=== PATIENT | female | born 1960 | race Caucasian/White ===

== ENCOUNTER → 2020-10-26 08:46 | Outpatient (CLI) | payer MEDICARE, BC, SELFPAY ==
--- NOTE | ~2020-10-26 | CT_ITS ---
EXAMINATION: CT lung screening DATE: 10/26/2020 09:36 INDICATION: Personal history of tobacco dependence. Lung cancer screening. TECHNIQUE: Computed tomography (CT) of the chest was performed without intravenous contrast. The dose -length product was 143.95 mGy-cm. Automated exposure control and iterative reconstruction technique were employed. COMPARISON: CT dated 07/28/2017 FINDINGS: No thoracic lymphadenopathy. No significant pleural or pericardial effusion. No thoracic ly mphadenopathy. There is atherosclerosis of the aorta and coronary arteries. There is a new 4 mm left lower lobe nodule, image 71. No additional pulmonary nodules are identified. No focal airspace consol idation. No pneumothorax. IMPRESSION: 1. . Lung-RADS category 3: Probably benign. Further evaluation is recommended with noncontrast low-do se chest CT in 6 months. Reviewed, dictated and finalized at location B. [employer] IMPRESSION: 1. . Lung-RADS category 3: Probably benign. Further evaluation is recommended w ith noncontrast low-dose chest CT in 6 months.
== END ==
PROVIDERS: PCP Family Medicine; Visit Provider Physician Assistant
DX: Z12.2 Encounter for screening for malignant neoplasm of respiratory organs (principal); Z87.891 Personal history of nicotine dependence
CPT/HCPCS: G0297

== ENCOUNTER → 2020-12-23 12:14 | Outpatient (CLI) | payer MEDICARE, BC, SELFPAY ==
--- NOTE | ~2020-12-23 | DEXA_ITS ---
Bone Density Report Name: eBl Gomes Age: 60 Sex: Female Ethnicity: White Date of : 1960 Indication: osteopenia; monitoring treatment; prior fracture; postmenopausal Referring Provider: JENNIFER MENDEZ Study: Bone densitometry was performed. Exam Date: December 23, 2020 Accession number: [id number] Bone Density: Region BMD T-score Z-score Classification AP Spine (L2, L3, L4) 1.018 -0.6 1.0 Normal Femoral Neck (Left) 0.623 -2.0 -0.7 Osteopenia Total Hip (Left) 0.695 -2.0 -1.0 Osteopenia Femoral Neck (Right) 0.605 -2.2 -0.8 Osteopenia Total Hip (Right) 0.738 -1.7 -0.6 Osteopenia Total Hip Mean 0.717 -1.9 -0.8 Osteopenia World Health Organization criteria for BMD impression classify patients as: Normal (T-score at or above -1.0), Osteopenia (T-score between -1.0 and -2.5), or Osteoporosis (T-score at or below -2.5). 10-year Fracture Risk: FRAX not reported because: Treated for osteoporosis Previous Exams: Region Exam Age BMD T-score BMD Change BMD Change Date g/cm2 vs Baseline vs Previous AP Spine(L2, L3, L4) 12/23/2020 60 1.018 -0.6 0.082* 0.101* 10/05/2018 58 0.917 -1.5 -0.019 -0.065* 04/21/2016 55 0.981 -0.9 0.046* 0.021 12/31/2013 53 0.961 -1.1 0.025* 0.015 12/30/2011 51 0.946 -1.2 0.011 0.011 12/18/2009 49 0.935 -1.3 Total Hip(Left) 12/23/2020 60 0.695 -2.0 -0.188* -0.090* 10/05/2018 58 0.785 -1.3 -0.098* -0.018 04/21/2016 55 0.803 -1.1 -0.081* 0.007 12/31/2013 53 0.795 -1.2 -0.088* 0.021 12/30/2011 51 0.774 -1.4 -0.110* -0.110* 12/18/2009 49 0.883 -0.5 Total Hip(Right) 12/23/2020 60 0.738 -1.7 -0.224* 0.003 10/05/2018 58 0.734 -1.7 -0.228* -0.089* 04/21/2016 55 0.823 -1.0 -0.139* -0.014 12/31/2013 53 0.837 -0.9 -0.125* 0.034* 12/30/2011 51 0.804 -1.1 -0.158* -0.158* 12/18/2009 49 0.962 0.2 *Denotes significance at 95% confidence level, LSC for AP Spine = 0.022 g/cm2, LSC for Total Hip = 0.027 g/cm2 Clinical Information Provided by Patient: Has had a low trauma fracture Smokes Is being treated for osteoporosis Has used the following medications: Boniva (i.e. ibandronate), Vitamin D Patient maximum height was 62.7 Menopause Age: 51 Does not regula
--- NOTE | ~2020-12-23 | MM_ITS ---
EXAMINATION: MM screening kyle BI w titi HISTORY: Screening TECHNIQUE: Craniocaudal and mediolateral oblique 3-D tomosynthesis images were obtained and synthetic 2-D images were generated. CAD analysis was submitted and interpreted. COMPARISON: Comparison to multiple prior studies sequentially, with oldest reviewed study dated 02/2014. BREAST PARENCHYMAL COMPOSITION: There are scattered areas of fibroglandular density. FINDINGS: There is no evidence of suspicious mass, calcification, or architectural distortion to sugg est malignancy in either breast. There has been no suspicious interval change. IMPRESSION: 1. No mammographic evidence of malignancy. 2. Recommend routine screening mammography in one year. BI-RADS Category 1: Negative Reviewed, dictated and finalized at location A. RY CELLAR HAND
== END ==
PROVIDERS: PCP Family Medicine; Visit Provider Obstetrics & Gynecology Gynecology
DX: Z12.31 Encounter for screening mammogram for malignant neoplasm of breast (principal); Z78.0 Asymptomatic menopausal state; M85.852 Other specified disorders of bone density and structure, left thigh; M85.851 Other specified disorders of bone density and structure, right thigh
CPT/HCPCS: 77063; 77067; 77080

== ENCOUNTER → 2021-04-15 09:56 | Outpatient (CLI) | payer MEDICARE, BC, SELFPAY ==
--- NOTE | ~2021-04-15 | CT_ITS ---
EXAMINATION: CT diagnostic chest wo con EXAM DATE: 04/15/2021 10:09 INDICATION: R91.1 - Solitary pulmonary nodule. TECHNIQUE: Spiral CT of the chest without contrast. Axial, coronal and sagittal images of the chest were reviewed. Coronal maximum intensity pixel images of chest reviewed. The dose-length product ( DLP) for this examination was 168.73 mGy-cm. The exposure was tailored according to patient size (au to mA exposure control), and iterative reconstruction (ASIR) was used as additional dose reduction te [place]. Comparison is made to prior examination from 10/26/2020. FINDINGS: Left lower lobe 3 mm nodule on image 73, unchanged, consistent with noncalcified granuloma . Triangular-shaped right middle lobe subsegmental atelectasis. No suspicious pulmonary nodules. Mild emphysema. There are no pleural or pericardial effusions. Tracheobronchial tree is patent. There is no mediastinal, hilar or axillary lymphadenopathy. There is no pneumothorax. Heart normal in size. There is mild coronary arterial calcification, arterial sclerosis. Upper abdomen is unremark able. There is mild thoracic spondylosis without osteoblastic or osteolytic lesions identified. IMPRESSION: 1. Postinfectious residua. Return to annual LDCT screening in one year. 2. Mild emphysema. Reviewed, dictated and finalized at location A.
== END ==
PROVIDERS: PCP Family Medicine; Visit Provider Physician Assistant
DX: R91.1 Solitary pulmonary nodule (principal); J43.9 Emphysema, unspecified
CPT/HCPCS: 71250

== ENCOUNTER 2022-03-10 09:56 | Outpatient (CLI) | payer MEDICARE, BC, SELFPAY ==
--- NOTE | 2022-03-10 11:00 | NEURO_ITS ---
Impression: # Complains of increasing numbness in hands and feet. # Right Carpal Tunnel Syndrome. # Bilateral ulnar neuropathy across the elbows, left more than right. # Needle/EMG neurogenic. # Underlying axonal neuropathy. Nerve Conduction Studies Anti Sensory Summary Table Stim Site NR Peak (ms) P-T Amp (?V) Site1 Site2 Delta-P (ms) Dist (cm) Ian (m/s) Left Median Anti Sensory (2-3nd Digit) Wrist 3.4 22.1 Wrist 2-3nd Digit 3.4 14.0 41 Wrist 3.4 51.7 Wrist 2-3nd Digit 3.4 14.0 41 Right Median Anti Sensory (2-3nd Digit) Wrist 3.8 28.5 Wrist 2-3nd Digit 3.8 14.0 37 Wrist 4.0 37.9 Wrist 2-3nd Digit 3.8 14.0 37 Left Radial Anti Sensory (Base 1st Digit) Wrist 2.3 12.5 Wrist Base 1st Digit 2.3 0.0 Right Radial Anti Sensory (Base 1st Digit) Wrist 2.3 17.7 Wrist Base 1st Digit 2.3 0.0 Left Sup Fibular Anti Sensory (Ant Lat Mall) 14 cm 3.6 10.5 14 cm Ant Lat Mall 3.6 16.0 44 Right Sup Fibular Anti Sensory (Ant Lat Mall) 14 cm 4.3 13.7 14 cm Ant Lat Mall 4.3 16.0 37 Left Sural Anti Sensory (Lat Mall) Calf 4.1 12.2 Calf Lat Mall 4.1 16.0 39 Right Sural Anti Sensory (Lat Mall) Calf 4.9 5.3 Calf Lat Mall 4.9 16.0 33 Left Ulnar Anti Sensory (5th Digit) Wrist 2.6 13.2 Wrist 5th Digit 2.6 14.0 54 Right Ulnar Anti Sensory (5th Digit) Wrist 3.3 14.4 Wrist 5th Digit 3.3 14.0 42 Motor Summary Table Stim Site NR Onset (ms) O-P Amp (mV) Site1 Site2 Delta-0 (ms) Dist (cm) Ian (m/s) Left Median Motor (Abd Poll Brev) Wrist 4.1 4.1 Elbow Wrist 5.2 28.0 54 Elbow 9.3 4.9 Right Median Motor (Abd Poll Brev) Wrist 4.5 3.0 Elbow Wrist 5.5 25.0 45 Elbow 10.0 1.2 Left Peroneal Motor (Vastus Med) Ankle 5.2 0.4 Popit Ankle 11.9 36.0 30 Popit 17.1 0.3 Right Peroneal Motor (Vastus Med) Ankle 5.9 0.4 Popit Ankle 12.1 33.0 27 Popit 18.0 0.4 Left Tibial Motor (Abd Vyas Brev) Ankle 5.7 1.3 Knee Ankle 9.7 37.0 38 Knee 15.4 2.1 Right Tibial Motor (Abd Vyas Brev) Ankle 6.0 1.7 Knee Ankle 10.0 40.0 40 Knee 16.0 3.4 Left Ulnar Motor (Abd Dig Minimi) Wrist 3.4 2.7 A Elbow Wrist 7.1 28.0 39 A Elbow 10.5 1.6 B Elbow Wrist 4.9 23.0 47 B Elbow 8.3 1.9 Right Ulnar Motor (Abd Dig Minimi) Wrist 3.1 4.1 A Elbow Wrist 8.5 28.0 33 A Elbow 11.6 3.0 B Elbow Wrist 4.5 20.0 44 B Elbow 7.6 2.9 F Wave Studies NR F-Lat (ms) L-R F-Lat (ms) Left Median (Mrkrs) (Abd Poll Brev) 30.70 1.27 Right Median (Mrkrs) (Abd Poll Brev) 29.44 1.27 Left Peroneal (Mrkrs) (EDB) 60.00 1.05 Right Peroneal (Mrkrs) (EDB) 61.05 1.05 Left Tibial (Mrkrs) (Abd Hallucis) 61.80 0.82 Right Tibial (Mrkrs) (Abd Hallucis) 62.62 0.82 Left Ulnar (Mrkrs) (Abd Dig Min) 31.29 1.70 Right Ulnar (Mrkrs) (Abd Dig Min) 29.59 1.70 EMG Side Muscle Nerve Root Ins Act Fibs Amp Dur Recrt Comment Right 1stDorInt Ulnar C8-T1 Nml Nml Nml >12ms Reduced Right Ext Indicis Radial (Post Int) C7-8 Nml Nml Nml >12ms Reduced Right Ext Digitorum Radial (Post Int) C7-8 Nml Nml Nml >12ms Reduced Right BrachioRad Radial C5-6 Nml Nml Nml Nml Nml Right PronatorTeres Median C6-7 Nml Nml Nml Nml Nml
== END 2022-03-10 09:57 | disposition home or self-care (01) ==
LOC: ANHNEURO 09:59
PROVIDERS: PCP Family Medicine; Visit Provider Physician Assistant
DX: G62.9 Polyneuropathy, unspecified (principal); G56.01 Carpal tunnel syndrome, right upper limb; G56.23 Lesion of ulnar nerve, bilateral upper limbs
CPT/HCPCS: 95886; 95913

== ENCOUNTER → 2022-03-18 10:06 | Outpatient (CLI) | payer MEDICARE, BC, SELFPAY ==
--- NOTE | ~2022-03-18 | MM_ITS ---
EXAMINATION: MM screening kyle BI w titi HISTORY: Screening mammogram TECHNIQUE: Craniocaudal and mediolateral oblique 3-D tomosynthesis images were obtained and synthetic 2-D images were generated. CAD analysis was submitted and interpreted. COMPARISON: 12/23/2020, 05/14/2019, 04/21/2018 bilateral screening mammogram examinations BREAST PARENCHYMAL COMPOSITION: The breasts are almost entirely fatty. FINDINGS: There is no evidence of suspicious mass, calcification, or architectural distortion to sugg est malignancy in either breast. There has been no suspicious interval change. IMPRESSION: 1. No mammographic evidence of malignancy. 2. Recommend routine screening mammography in one year. BI-RADS Category 1: Negative Reviewed, dictated and finalized at location A.
== END ==
PROVIDERS: PCP Obstetrics & Gynecology Gynecology; Visit Provider Obstetrics & Gynecology Gynecology
DX: Z12.31 Encounter for screening mammogram for malignant neoplasm of breast (principal)
CPT/HCPCS: 77063; 77067

== ENCOUNTER → 2022-04-22 10:39 | Outpatient (CLI) | payer MEDICARE, BC, SELFPAY ==
--- NOTE | ~2022-04-22 | XR_ITS ---
EXAMINATION: XR forearm RT 2V, XR wrist RT 2V DATE: 04/22/2022 10:56 INDICATION: Right wrist and posterior forearm pain post fall TECHNIQUE: 1. AP an lateral views of the right forearm were obtained. 2. AP and lateral views of the right wrist were obtained. COMPARISON: none FINDINGS: Diffuse osteopenia. Mild impaction of a transverse metaphyseal fracture of the distal right radius wh ich remains in essentially anatomic alignment. No evident extension to involve the articular surfaces . No other fractures identified. Mild osteoarthritis at the distal radioulnar joint. . Remaining join t spaces appear relatively preserved. No right elbow joint effusion. Small these findings at the late ral epicondyle of the distal right humerus. Mild soft tissue swelling about the wrist. IMPRESSION: 1. Mild impaction of a nondisplaced likely extra articular fracture distal right radial metaphysis wh ich remains in near-anatomic alignment. Reviewed, dictated and finalized at location B. IMPRESSION: 1. Mild impaction of a nondisplaced likely extra articular fracture distal righ t radial metaphysis which remains in near-anatomic alignment.
== END ==
PROVIDERS: PCP Physician Assistant; Visit Provider Physician Assistant
DX: S59.201A Unspecified physeal fracture of lower end of radius, right arm, initial encounter for closed fracture (principal)
CPT/HCPCS: 73090; 73100

== ENCOUNTER → 2022-05-17 10:17 | Outpatient (CLI) | payer MEDICARE, BC, SELFPAY ==
--- NOTE | ~2022-05-17 | XR_ITS ---
EXAMINATION: XR forearm RT 2V INDICATION: Right wrist fracture follow-up TECHNIQUE: Two views of the right forearm are obtained COMPARISON: 04/22/2022 FINDINGS: Again seen is a transverse fracture of the distal radius. Alignment is anatomic. There is i ncreased calcified callus at the fracture site. Alignment at the wrist and elbow is normal. No additi onal fracture is identified. The soft tissues are unremarkable. IMPRESSION: 1. Transverse fracture of the distal radius with routine healing. Reviewed, dictated and finalized at location A.
== END ==
PROVIDERS: PCP Family Medicine; Visit Provider Physician Assistant
DX: S52.501D Unspecified fracture of the lower end of right radius, subsequent encounter for closed fracture with routine healing (principal); X58.XXXD Exposure to other specified factors, subsequent encounter
CPT/HCPCS: 73090

== ENCOUNTER → 2023-06-06 10:29 | Outpatient (CLI) | payer MEDICARE, BC, SELFPAY ==
--- NOTE | ~2023-06-06 | MM_ITS ---
EXAMINATION: MM screening kyle BI w titi HISTORY: Screening mammogram TECHNIQUE: Craniocaudal and mediolateral oblique 3-D tomosynthesis images were obtained and synthetic 2-D images were generated. CAD analysis was submitted and interpreted. COMPARISON: March 18, 2022, December 23, 2020, May 14, 2019 lateral screening mammogram examinations BREAST PARENCHYMAL COMPOSITION: The breasts are almost entirely fatty. FINDINGS: There is no evidence of suspicious mass, calcification, or architectural distortion to sugg est malignancy in either breast. There has been no suspicious interval change. IMPRESSION: 1. No mammographic evidence of malignancy. 2. Recommend routine screening mammography in one year. BI-RADS Category 1: Negative Reviewed, dictated and finalized at location A.
== END ==
PROVIDERS: PCP Obstetrics & Gynecology Gynecology; Visit Provider Obstetrics & Gynecology Gynecology
DX: Z12.31 Encounter for screening mammogram for malignant neoplasm of breast (principal)
CPT/HCPCS: 77063; 77067

== ENCOUNTER → 2023-06-06 10:32 | Outpatient (CLI) | payer MEDICARE, BC, SELFPAY ==
--- NOTE | ~2023-06-06 | CT_ITS ---
CT Scan of the Chest without Contrast: Clinical Indication: Lung cancer screening, personal history of nicotine dependence Technique: Contiguous sections were acquired throughout the chest without intravenous contrast. Dose reduction technique was used on this scan by utilizing automated exposure control and iterative recon struction technique. The dose-length product (DLP) was 96.31 mGy-cm. COMPARISON: 04/15/2021, 10/26/2020 Findings: There is no evidence of any significant mediastinal, hilar or axillary lymphadenopathy. Atherosclerot ic calcifications of the aorta and coronary arteries are noted. There is no evidence of pleural or pericardial effusion. The lungs are clear. No pulmonary nodules or infiltrates are noted. Images through the upper abdomen reveal no abnormalities. Impression: Lung RADS 1: Negative. 12 month follow-up screening CT advised. Reviewed, dictated and finalized at [facility]. Impression: Lung RADS 1: Negative. 12 month follow-up screening CT advised.
== END ==
PROVIDERS: PCP Family Medicine; Visit Provider Emergency Medicine
DX: Z12.2 Encounter for screening for malignant neoplasm of respiratory organs (principal); Z87.891 Personal history of nicotine dependence
CPT/HCPCS: 71271

== ENCOUNTER 2025-02-18 11:16 | Outpatient (CLI) | payer MEDICARE, BC, SELFPAY ==
[2025-02-18 19:35] LABS: Alanine Aminotransferase 15 U/L (6-35); Albumin Level 4.2 g/dL (3.5-5.1); Alkaline Phosphatase 94 U/L (38-126); Anion Gap 8 mmol/L (4-12); Aspartate Amino Transferase 24 U/L (14-36); Bilirubin,Total 0.1 mg/dL (0.2-1.3); Blood Urea Nitrogen 13 mg/dL (7-17); Calcium 8.6 mg/dL (8.4-10.2); Carbon Dioxide 25 mmol/L (22-30); Chloride 101 mmol/L (98-107); Cholesterol 117 mg/dL (0-200); Estimated Glomerular Filt Rate > 60; Glucose 89 mg/dL (65-110); HDL Direct 41 mg/dL; Sodium 134 mmol/L (137-145); Triglycerides 122 mg/dL (<150)
[2025-02-18 19:47] LABS: LDL Cholesterol Direct 54 mg/dL
[2025-02-18 20:09] LABS: Basophils Absolute Auto 0.1 K/mm3 (0.0-0.1); Basophils Percent Auto 0.7 % (0.2-1.2); Eosinophils Absolute Auto 0.1 K/mm3 (0-0.3); Eosinophils Percent Auto 1.8 % (0-4.4); Hematocrit 28.3 % (37.0-47.0); Hemoglobin 8.4 g/dL (12.0-15.0); Immature Granulocyte Absolute 0.03 K/mm3 (0.00-0.031); Immature Granulocyte Percent A 0.4 % (0-0.5); Lymphocytes Absolute Auto 1.29 K/mm3 (0.9-3.2); Lymphocytes Percent Auto 18.9 % (18.3-44.2); Mean Corpuscular HGB Conc 29.7 g/dl (32-36); Mean Corpuscular Hemoglobin 27.5 pg (26-34); Mean Corpuscular Volume 92.5 fl (80-100); Mean Platelet Volume 10.2 fl (7.4-10.4); Monocytes Absolute Auto 0.5 K/mm3 (0.1-0.6); Monocytes Percent Auto 7.3 % (2.6-8.5); Neutrophils Absolute Auto 4.8 K/mm3 (1.3-6.7); Neutrophils Percent Auto 70.9 % (45.5-73.1); Platelet Count Result 264 k/mm3 (150-375); Red Blood Count 3.06 M/mm3 (4.2-5.4); Red Cell Distribution Width 14.6 % (11.5-14.5); White Blood Count 6.8 K/mm3 (4.5-10.0)
[2025-02-18 20:28] LABS: Hypochromasia 1+; Ovalocytes 1+; Platelet Estimate Adequate (Adequate); Schistocytes None Seen
[2025-02-18 20:59] LABS: Ferritin 6.58 ng/mL (11.1-264)
[2025-02-18 21:07] LABS: Hemoglobin A1C 5.9 % (<5.7)
== END 2025-02-18 11:17 | disposition home or self-care (01) ==
LOC: ANHGOSHLAB 11:17
PROVIDERS: PCP Family Medicine; Visit Provider Family Medicine
DX: D64.9 Anemia, unspecified (principal); E11.42 Type 2 diabetes mellitus with diabetic polyneuropathy; E53.8 Deficiency of other specified B group vitamins; E55.9 Vitamin D deficiency, unspecified; J42 Unspecified chronic bronchitis
CPT/HCPCS: 36415; 80053; 80061; 82306; 82607; 82728; 83036; 85025

== ENCOUNTER → 2025-03-27 02:24 | Day surgery (SDC) | payer MEDICARE, BC, SELFPAY ==
[2025-03-19 13:46] VITALS: BMI 28.4
--- NOTE | 2025-03-19 14:06 | SUR.PREOP ---
Spoke with patient in regards to her Eliquis. She verbalized understanding that her last dose will be 03/24/25 and the endoscopist will inform her when to resume after procedure is done.
--- NOTE | 2025-03-26 14:32 | WPDANESEPPF ---
Anes - Initial Pre Proc Eval Procedure: Operation Date: 03/27/25 11:00 Proposed Procedures p Colonoscopy - Ramon Horne MD Date/Time: 03/26/25 14:32 Surgeon: Ramon Horne MD Pre Op Diagnosis: Iron deficiency anemia, unspecified Patient Data Age: 64 Gender: F Height: 1.57 m Weight: 70.5 kg Allergies Allergy/AdvReac Type Severity Reaction Status Date / Time amoxicillin Allergy Unknown Unknown Verified 03/27/25 09:46 Home Medications ?Medication ?Instructions ?Recorded ?Confirmed ?Type fexofenadine 180 mg tablet 180 mg PO DAILY 02/12/20 03/27/25 History (Ling Allergy) albuterol sulfate 90 mcg/actuation 2 inh inhalation Q6H PRN shortness 12/14/23 03/19/25 Rx breath activated powder inhaler of breath or wheezing #1 ea mecobalamin (vitamin B12) 1,000 1,000 mcg PO DAILY #90 tabs 12/28/23 03/27/25 Rx mcg chewable tablet clotrimazole-betamethasone 1 1 applic topical PRN rash 06/12/24 02/18/25 History %-0.05 % topical cream lisinopril 20 1 tablet PO DAILY 06/12/24 03/27/25 History mg-hydrochlorothiazide 12.5 mg tablet ursodiol 300 mg capsule mg PO 06/12/24 02/18/25 History blood sugar diagnostic (OneTouch #50 ea 08/01/24 03/19/25 Rx Verio test strips) blood-glucose meter (OneTouch #1 ea 08/01/24 03/19/25 Rx Verio Flex Meter) lancets 33 gauge (OneTouch Delica #100 ea 08/01/24 03/19/25 Rx Plus Lancet) levothyroxine 50 mcg tablet See Rx Instructions .Route 09/13/24 03/27/25 Rx .COMPLEX #90 tabs simvastatin 20 mg tablet See Rx Instructions .Route 11/06/24 03/27/25 Rx .COMPLEX #90 tabs Farxiga 10 mg tablet 10 mg PO QAM #90 tabs 11/07/24 03/27/25 Rx (dapagliflozin propanediol) metoprolol succinate 100 mg 100 mg PO DAILY #90 tabs 12/09/24 03/27/25 Rx tablet,extended release 24 hr apixaban 5 mg tablet (Eliquis) See Rx Instructions .Route 12/12/24 03/27/25 Rx .COMPLEX #180 tabs sertraline 100 mg tablet 100 mg PO DAILY #90 tabs 01/13/25 03/27/25 Rx sitagliptin phosphate 50 mg tablet 50 mg PO DAILY #90 tabs 02/05/25 03/27/25 Rx (Januvia) ferrous sulfate 325 mg (65 mg 325 mg PO DAILY #90 tabs 02/19/25 03/27/25 Rx iron) tablet metformin 1,000 mg tablet 1,000 mg PO BIDWMEAL #180 tabs 03/07/25 03/27/25 Rx trazodone 50 mg tablet See Rx Instructions .Route 03/14/25 03/27/25 Rx .COMPLEX #180 tabs Patient hx anesthesia problems: none Family hx anesthesia problems: none Results Review: All pre-operative results and documents have been reviewed as part of the pre-operative evaluation. [facility] Past Medical History Medical History (Updated 03/26/25 @ 14:32 by Bipin Jimenez DO) Atrial fibrillation History of proteinuria syndrome associated with diabetes. doing well. Syncope considered vasovagal. Pelvic stress fracture Proteinuria Fractured pelvis Broken hip Right radial fracture Peripheral neuropathy Depression Liver disease Back pain Primary biliary cholangitis Chronic obstructive pulmonary disease, unspecified ct 5.20.21 mild emphysema Degeneration of lumbar or lumbosacral intervertebral disc Essential (primary) hypertension Hypothyroidism, unspecified Mixed hyperlipidemia Trigger finger of left thumb Type 2 diabetes mellitus with hyperglycemia Surgical History Surgical History H/O oral surgery H/O shoulder surgery bilateral Total knee replacement status 2009, 2013, bilateral Family History Family History Mother Diabetes mellitus Hypertension Family history of chronic obstructive pulmonary disease Sibling Family history of malignant neoplasm of breast Father Family history of sudden Social History Social History Smoking packs per day: 1 Smoking cigarettes per day: 20.0 Years smoked: 30 Smoking pack-years: 30.00 Smoking status: Current every day smoker Tobacco type: cigarettes Second hand tobacco smoke exposure: Yes Alcohol intake: never Substance use: never Substance use type: does not use Do You Feel Safe in your Home?: Yes Lack of Transportation: No Lack of Food: Never True Current Housing: I Have Housing Concerned About Future Housing: No Difficulty Paying Gas/Electric Bills: No Difficulty Paying for Meds: No Currently Unemployed: No Education: Decline to Answer Difficulty w/ Childcare or Family Care: No Living arrangements: alone Anes - Eval Final PreProcedure Day of Procedure 03/26/25 14:32 Patient weight: overweight Heart: regular rate and rhythm Lungs: clear to auscultation Airway: Mallampati scale class II Neurological: alert and oriented Last oral intake: >/= 8 hours ASA classification: III Emergent: no Anesthetic plan: proceed Anesthesia type and monitoring: general GIVS and standard monitoring Results Review: All pre-operative results and documents have been reviewed as part of the pre-operative evaluation. Informed Consent: The patient's anesthetic plan and its attendant risks and benefits were discussed with the patient/family/POA. Questions were solicited and answers provided to the satisfaction of the patient/family/POA.
[2025-03-27] VITALS (25 sets, daily range): BP systolic 71–158; BP diastolic 44–103; PULSE 78–128; RESP 18–37; TEMP 36.3; O2SAT 94–100; BMI 28.3
--- OUTSIDE RECORDS SUMMARY | 2025-03-27 02:29 | XMS_ITS | Clinical Summary ---
Author Organization [facility] Address [address] [place] [id number] Phone Care Team Providers Care Brush Stainer Name Role Phone Unavailable Primary Care Provider Unavailabl e Social History Tobacco Use Types Packs/Day Years Used Date Smoking Tobacco: Never Assessed Comments Unknown Sex and Gender Information Value Date Recorded Sex Assigned at Not on file Legal Sex Female 1:39 PM MDT Gender Identity Not on file Sexual Orientation Not on file Plan of Treatment Health Maintenance Due Date Last Done Comments Pneumococcal PPSV23/PCV13 65 + Years / Low and Medium Risk (1 of 4 - PCV) 2009 Influenza Vaccine (Season Ended) 2025 Insurance MEDICARE [facility]
--- OUTSIDE RECORDS SUMMARY | 2025-03-27 02:29 | XMS_ITS | Clinical Summary ---
Author Organization [facility] Address [address] [place] [address] Care Team Providers Care Garment Fitter Name Role Phone Nicolasa Jiang MD Primary Care Provider [phone] Source Comments [facility],non-owned Affiliates and Associated Physician Practices is amultiple site organization consisting of ambulatory clinics and hospital sitesin [place], [place], [place] and [place]. This disclosure is being madepursuant to the Care Everywhere program and may not contain all information available regarding this patient. Last updated 18.[facility] Allergies No known active allergies Medications * Be aware that medications may not be up to date on this document. Alwaysverify current medications with the patient. levothyroxine (SYNTHROID) 50 MCG tablet Take 1 (one) tablet by mouth daily before breakfast 04/17/20 17 Active fexofenadine (TYSON) 180 MG tablet Take 1 (one) tablet by mouth DAILY 04/18/20 17 Active B-D UF III MINI PEN NEEDLES 31G X 5 MM needleIndicatio ns:Primary biliary cholangitis (HCC) USE ONCE A DAY 3 05/01/20 18 Active albuterol HFA (Proventil; Ventolin; Proair) 108 (90 Base) MCG/ACT inhalerIndicati ons:Primary biliary cholangitis (HCC) Inhale 2 (two) puffs by mouth every 6 hours as needed Active ibandronate (BONIVA) 150 MG tablet TK 1 T PO 1 TIME Q MONTH 3 09/18/20 19 Active apixaban (ELIQUIS) 5 MG tablet Take 1 (one) tablet by mouth 2 times daily 09/13/20 21 Active simvastatin (ZOCOR) 40 MG tablet Take 1 (one) tablet by mouth once daily 09/14/20 21 Active sertraline (Zoloft) 100 MG tablet Take 1 (one) tablet by mouth at bedtime Active traZODone (Desyrel) 100 MG tablet Take 1 (one) tablet by mouth at bedtime Active spironolactone (Aldactone) 25 MG tablet Take 25 mg by mouth once daily Active HYDROcodone-avila taminophen (Jewett) 5-325 MG tablet Take 1 (one) tablet by mouth every 12 hours as needed for Pain 12 tablet 08/25/20 22 Active amLODIPine (Norvasc) 5 MG tablet Take 1 (one) tablet by mouth once daily Hold if systolic blood pressure (top number) is less than 120 mm Hg 30 tablet 08/25/20 22 Active Basaglar KwikPen (Basaglar) pen Inject 10 (ten) Units subcutaneously at bedtime 15 mL 08/25/20 22 Active Additional Information Patient not taking.Reported on 07/24/2023 Insulin Aspart, w/Niacinamide, (Fiasp PenFill) 100 UNIT/ML SOCT Inject 5 Units subcutaneously 3 times daily before meals HOLD IF BS is below 110 and notify your doctor 15 mL 08/25/20 22 Active magnesium oxide (Mag-Ox) 400 MG tablet Take 0.5 (one-half) tablet by mouth once daily 15 tablet 08/25/20 22 Active metFORMIN (Glucophage) 1000 MG tablet Take 0.5 (one-half) tablet by mouth 2 times daily with morning and evening meal 30 tablet 08/25/20 22 Active Additional Information Patient taking differently: 1,000 mgOral 2 TIMES DAILY WITH MEALS, Reported on 07/24/2023 metoprolol tartrate IR (Lopressor) 50 MG tablet Take 1 (one) tablet by mouth 2 times daily 60 tablet 08/25/20 22 Active ursodiol (Actigall) 300 MG capsule TAKE 2 CAPSULES BY MOUTH IN THE MORNING AND 1 CAPSULE IN THE EVENING 90 capsule 11 03/27/20 24 Active Active Problems Problem Noted Date Diagnosed Date NAFLD (nonalcoholic fatty liver disease) 023 Hepatic fibrosis, stage 3 07/24/2023 Hip fx, left, closed, initial encounter 08/17/20 22 Essential hypertension, malignant 09/13/2021 Mixed hyperlipidemia 09/13/2021 Paroxysmal atrial fibrillation 09/13/2021 Controlled type 2 diabetes m ellitus without complication, with long-term current use of insulin 10/15/2019 Primary biliary cholangitis 10/04/2017 Overview (07/25/2023): 09/29/17 Fibroscan CAP 285, LSM 9.3 kPa 10/15/19 Fibroscan CAP 257, LSM 8.2 kPa 12/01/20 Fibroscan CAP 321, LSM 19.1 kPa 07/24/23 Fibroscan CAP 269, LSM 13.6 kPa Encounters Date Type Department Care Team Description 02/06/2025 Orders Only [facility] [address] [place] [address] Ben Cuevas RN Primary biliary cholangitis from Last 3 Months Immunizations Immunization Administration Dates Next Due [employer] primary monoval ent 12+ yr 0.3mL Purple cap 02/11/2021,01/22/2021 INFLUENZA VACCINE, QUADR. (F LUZONE; FLULAVAL; FLUARIX; AFLURIA QUADRIVALENT; 6MO+), 0.5 ML (IIV4) 08/19/2022,09/18/2019 Family History Medical History Relation Name Comments None Known Father Status: d Heart Disease Mother Status: Alive Cancer Sister 1 breast; Status: Alive None Known Sister 2 Status: Alive Relation Name Status Comments Father Mother Sister 1 Sister 2 Social History Tobacco Use Types Packs/Day Years Used Date Smoking Tobacco: Every Day Cigarettes 0.5 40 Smokeless Tobacco: Never Tobacco Cessation:Ready to Q uit: No; Counseling Given: Yes Alcohol Use Standard Drinks/Week Comments Not Currently 0 (1 standard drink = 0.6 oz pur e alcohol) Hunger Vital Sign Answer Date Recorded Within the past 12 months, y ou worried that your food would run out before you got the money to buy more. Never true 08/22/20 22 Within the past 12 months, t he food you bought just didn't last and you didn't have money to get more. Never true 08/22/2022 Comments Unknown Sex and Gender Information Value Date Recorded Sex Assigned at Not on file Legal Sex Female 5:20 PM RATE ENGINEER Gender Identity Not on file Sexual Orientation Not on file Last Filed Vital Signs Vital Sign Reading Time Taken Comments Blood Pressure 103/87 07/24/2023 8:11 AM CDT Pulse 65 07/24/2023 8:11 AM CDT Temperature 36.3 C (97.4 F) 07/24/2023 8:11 AM CDT Respiratory Rate 18 08/25/2022 11:03 AM CDT Oxygen Saturation 100% 07/24/2023 8:11 AM CDT Inhaled Oxygen Concentration - - Weight 67.7 kg (149 lb 3.2 oz) 07/24/2023 8:11 A M CDT Height 157.5 cm (5' 2 ) 07/24/2023 8:11 AM CDT Body Mass Index 27.29 07/24/2023 8:11 AM CDT Plan of Treatment Health Maintenance Due Date Last Done Comments COLOGUARD (AGES 45-75) - COLON CA SCREENING 1959 COLON MONITORING 1959 COLONOSCOPY - COLON CA SCREENING 1959 CT COLONOGRAPHY - COLON CA SCREENING 1959 Colorectal Cancer Screening 1959 FIT - COLON CA SCREENING 1959 FLEX SIG - COLON CA SCREENING 1959 MAMMOGRAM 1959 MEDICARE AWV 12 MONTHS 1959 PAP SMEAR 1959 HIV SCREENING 1974 DTAP/TDAP/TD VACCINES (1 - Tdap) 1978 PNEUMOCOCCAL VACCINE 50+ (1 of 2 - PCV) 1978 ZOSTER VACCINE (1 of 2) 2009 HEPATITIS B VACCINE (1 of 3 - Risk 3-dose series) 2019 Respiratory Syncytial Virus (RSV) Vaccine Pt: or over 60 yrs (1 - Risk 60-74 years 1-dose series) 2019 DIABETES RETINOPATHY SCREENING 10/15/2019 DIABETES-FOOT EXAM WITH MONOFILAMENT 10/15/2019 DIABETES-HGB A1C 03/11/2020 12/11/2019 DIABETES-SERUM CREATININE 07/24/20242022, 12/24/2022, 12/24/2022, Additional history exists COVID-19 VACCINE ( season) 2024 11/29/2021, 02/11/2021, 01/22/2021 DEPRESSION SCREENING 11/27/2024 DIABETES - URINE PROTEIN SCREENING 11/27/2024 INFLUENZA VACCINE (Season Ended) 2025 08/19/2022, 10/19/2021, 09/01/2020, Additional history exists HEPATITIS C SCREENING Completed 04/18/2017 BONE DENSITY TESTING Completed 10/24/2023, 02/21/2023, 08/27/2021 HIB VACCINE Aged Out No longer eligi ble based on patient's age to complete this topic HPV VACCINE Aged Out No longer eligi ble based on patient's age to complete this topic MENINGOCOCCAL (Group B) VACCINE SHARED DECISION-MAKING Aged Out No longer eligible based on patient's age to complete this topic MENINGOCOCCAL GROUPS A/C/Y/W VACCINE Aged Out No longer eligible based on patient's age to complete this topic Goals Goal Patient Goal Type Associated Problems Recent Progress Patient-Stated? Author Medication Management General On track( 10:37 AM CDT) No Maris Caldera, RN Note: Expected end date: Ongoing Interventions: Take all medications as prescribed Let your doctor know right away about any changes in your medications Make sure to request a refill of your medication at least one week prior to your last dose Safety General On track( 10:38 AM CDT) No Meredith Mesa, RN Note: Expected end date: ongoing Interventions: Your nurse will assess your risk for falls/injury each visit Medical Devices Implanted Type Area Director Of Perioperative Services Device Identifier Shelf Expiration Date Model / Serial / Lot Nail Im 10mm 18cm Trgn Intrtn Intrtroch - Sn/A Implanted:Qty: 1 on 08/20/2022 by Jeremiah Wilkerson MD at [facility] Left: Hip [employer] 04/18/2032 [id number] / N/A / [id number] Kit Screw 95mm 11.5mm 7mm Intrtn Troch - Sn/A Implanted:Qty: 1 on 08/20/2022 by Jeremiah Wilkerson MD at [facility] Left: Hip [employer] 04/15/2032 [id number] / N/A / [id number] Screw 5mm 32.5mm Lopro Intnl Hex Fem - Sn/A Implanted:Qty: 1 on 08/20/2022 by Jeremiah Wilkerson MD at [facility] Left: Hip [employer] 06/19/2031 [id number] / N/A / [id number] Procedures Procedure Name Priority Date/Time Associated Diagnosis Comments DEXA BONE DENSITY AXIAL SKELETON Routine 10/24/2023 9:00 AM RATE ENGINEER Research study patient COMPREHENSIVE METABOLIC PANEL Routine 07/24/2023 9:40 AM CDT Primary biliary cholangitis NAFLD (nonalcoholic fatty liver disease) Age-related osteoporosis without current pathological fracture Hepatic fibrosis, stage 3 HEMOGLOBIN A1C Routine 12/11/2019 8:07 AM RATE ENGINEER Controlled type 2 diabetes mellitus without complication, with long-term current use of insulin HEPATITIS C ANTIBODY Routine 04/18/2017 12:29 PM CDT from Last 3 Months or Most Recently Relevant to Health Maintenance Results * BONE DENSITY AXIAL SKELETON(1OR MORE SITES)[id number] (10/24/2023 9:00 AM RATE ENGINEER) Anatomical Region Laterality Modality Other 10/24/2023 10:0 6 AM RATE ENGINEER Narrative 10/24/2023 10:32 AM RATE ENGINEER PROCEDURE: DEXA BONE DENSITY AXIAL SKELETON DATE/TIME OF EXAM: 10/24/2023 9:02 AM CLINICAL INFORMATION: None relevant/not provided if blank. Indication: Z00.6: Research study patient COMPARISON: DEXA scan from 02/21/2023. LUMBAR SPINE (L1-L4): Bone mineral density (g/cm2): 1.098 Current T-score: 0.5 RIGHT FEMORAL NECK: Bone mineral density (g/cm2): 0.525 Current T-score: -2.9 BONE DENSITY ASSESSMENT: WHO Category: Osteoporosis. FRAX not reported because some T-scores for spine total, hip total, femoral neck at or below -2.5. Please see the PACS images for additional details. World Health Organization definitions of standard deviations relative to the mean T-score: Normal bone density = -1.0 and above Osteopenia = between -1.0 and -2.5 Osteoporosis = -2.5 and below > Dictated by Elaine Tijerina MD (Head Bucker) 10/24/2023 10:06 AM Herrera Sams DO have personally reviewed and interpreted this examination/study. > Interpreting Provider: Herrera Whitfield DO on 10/24/2023 10:32 AM Procedure Note Herrera Whitfield DO - 10/24/2023 PROCEDURE: DEXA BONE DENSITY AXIAL SKELETON DATE/TIME OF EXAM: 10/24/2023 9:02 AM CLINICAL INFORMATION: None relevant/not provided if blank. Indication: Z00.6: Research study patient COMPARISON: DEXA scan from 02/21/2023. LUMBAR SPINE (L1-L4): Bone mineral density (g/cm2): 1.098 Current T-score: 0.5 RIGHT FEMORAL NECK: Bone mineral density (g/cm2): 0.525 Current T-score: -2.9 BONE DENSITY ASSESSMENT: WHO Category: Osteoporosis. FRAX not reported because some T-scores for spine total, hip total,femoral neck at or below -2.5. Please see the PACS images for additional details. World Health Organization definitions of standard deviations relative to the mean T-score: Normal bone density = -1.0 and above Osteopenia = between -1.0 and -2.5 Osteoporosis = -2.5 and below > Dictated by Elaine Tijerina MD (Head Bucker) 10/24/2023 10:06AM Herrera Sams DO have personally reviewed and interpreted this examination/study. > Interpreting Provider: Herrera Whitfield DO on 10/24/2023 10:32 AM Mo Crespo MD DEXA ORDERABLES Final Result * (ABNORMAL) COMPREHENSIVE METABOLIC PANEL (07/24/2023 9:40 AM [facility]) BUN 12 7 - 26 mg/dL 07/24/2023 10:28 AM [facility] Creatinine 0.55(L) 0.56 - 0.96 mg/dL 07/24/2023 10:28 AM [facility] Sodium 134(L) 136 - 145 mmol/L 07/24/2023 10:28 AM [facility] Potassium 3.9 3.5 - 4.5 mmol/L 07/24/2023 10:28 AM [facility] Chloride 102 98 - 107 mmol/L 07/24/2023 10:28 AM [facility] CO2 25 22 - 29 mmol/L 07/24/2023 10:28 AM [facility] Glucose 108 70 - 115 mg/dL 07/24/2023 10:28 AM [facility] Calcium 8.7 8.4 - 10.2 mg/dL 07/24/2023 10:28 AM [facility] Protein Total 7.2 6.0 - 8.3 g/dL 07/24/2023 10:28 AM [facility] Albumin 3.5 3.4 - 5.0 g/dL 07/24/2023 10:28 AM [facility] Bilirubin Total 0.4 0.2 - 1.2 mg/dL 07/24/2023 10:28 AM [facility] Alkaline Phosphatase 143 40 - 150 U/L 07/24/2023 10:28 AM [facility] ALT 19 5 - 55 U/L 07/24/2023 10:28 AM [facility] AST 28 5 - 34 U/L 07/24/2023 10:28 AM [facility] Anion Gap 11 8 - 18 07/24/2023 10:28 AM [facility] BUN/Creatinine Ratio 22 7 - 23 07/24/2023 10:28 AM CDT [facility] Osmolality Calculated 278 270 - 300 mOsm/kg 07/24/2023 10:28 AM T [facility] Albumin/Globulin Ratio 0.9(L) 1.1 - 2.3 07/24/2023 10:28 AM CDT [facility] eGFR by CKD-EPI >90 >=90 mL/min/1.7 3 m2 07/24/2023 10:28 AM T [facility] Blood BLOOD SPECIMEN / Unknown Lab Venipuncture / Unknown 07/24/2023 9:40 AM CDT 07/24/2023 9:55 AM CDT us Jayde Skaggs MD LAB - CHEMISTRY ORDERABLES Fi nal Result Performing Organization Address City/[facility]/ZIP Co de Phone Number [facility] [address] [place] [phone], [facility] [phone] * (ABNORMAL) HEMOGLOBIN A1C (12/11/2019 8:07 AM RATE ENGINEER) Hemoglobin A1c 9.9(H) 4.8 - 5.6 % [facility] INSURANCE BILL Comment: . Prediabetes: 5.7 - 6.4 Diabetes: >6.4 Glycemic control for adults with diabetes: <7.0 FASTING Blood BLOOD SPECIMEN / Unknown 12/11/2019 8:07 AM RATE ENGINEER 12/11/2019 Narrative [facility] INSURANCE BILL - 12/12/2019 7:08 AM RATE ENGINEER A courtesy copy of this report has been sent to [phone] Resulting Agency Comment Lab Testing performed at: [facility] [address] [phone] us Trip Patel MD LAB - CHEMISTRY ORDERAB LES Final Result [facility] INSURANCE BILL [address] [place] [address] * HEPATITIS C ANTIBODY (04/18/2017 12:29 PM CDT) Hepatitis C Antibody Non-react cassandra Non-reac tive [facility] Comment: Hepatitis C Antibody screen indicates no serologic evidence of past or current infection with Hepatitis C Virus. Patients with unexplained liver disease who are immunocompromised or suspected of having acute Hepatitis C infection may benefit from Nucleic Acid Test (TERESA) for Hepatitis C Viral RNA to confirm Hepatitis C status. Blood specimen (specimen) BLOOD SPECIMEN / Unknown 04/18/2017 12:29 PM CDT 04/18/2017 12:56 PM CDT us Trip Patel MD LAB - CHEMISTRY ORDERAB LES Final Result [facility] [address] [phone] from Last 3 Months or Most Recently Relevant to Health Maintenance Insurance MEDICARE [facility]LY [facility] MEDICARE FORMERLY [facility] MEDICARE [facility] Advance Directives * Full Code (Latest Code Status on File) Date Activated Date Inactivated Comments 08/20/2022 2:02 PM 08/25/2022 3:30 PM * Full Code Date Activated Date Inactivated Comments 08/17/2022 11:56 PM 08/20/2022 2:02 PM Care Teams Garment Fitter Relationship Specialty Start Date End Date Nicolasa Jiang MD [address] [place] [id number] PCP - General 07/10/18
--- OUTSIDE RECORDS SUMMARY | 2025-03-27 02:30 | XMS_ITS | Continuity of Care Document ---
Author Organization [employer] [place] Address [address] [place] [address] Phone Care Team Providers Care Home Health Lpn Name Role Phone Jose G PT, MARIEL, Hollie Unavailable Unavailab le Procedures Procedure Date Therapeutic Activities Neuromuscular Re-Ed Therapeutic Activities Neuromuscular Re-Ed Therapeutic Activities Neuromuscular Re-Ed Therapeutic Activities Neuromuscular Re-Ed Therapeutic Exercise Therapeutic Activities Neuromuscular Re-Ed Therapeutic Activities Neuromuscular Re-Ed Therapeutic Exercise Therapeutic Activities Neuromuscular Re-Ed Therapeutic Exercise Progress Note Therapeutic Activities Neuromuscular Re-Ed Therapeutic Activities Neuromuscular Re-Ed Therapeutic Exercise Therapeutic Activities Neuromuscular Re-Ed Therapeutic Exercise Therapeutic Activities Neuromuscular Re-Ed Therapeutic Exercise Therapeutic Activities Neuromuscular Re-Ed Therapeutic Exercise Therapeutic Activities Neuromuscular Re-Ed Therapeutic Exercise Progress Note Therapeutic Activities Neuromuscular Re-Ed Therapeutic Exercise Therapeutic Activities Neuromuscular Re-Ed Therapeutic Exercise Therapeutic Activities Neuromuscular Re-Ed Therapeutic Exercise Therapeutic Activities Neuromuscular Re-Ed Therapeutic Exercise Therapeutic Activities Neuromuscular Re-Ed Therapeutic Exercise Therapeutic Activities Neuromuscular Re-Ed Therapeutic Exercise Therapeutic Activities Neuromuscular Re-Ed Progress Note Therapeutic Activities Neuromuscular Re-Ed Therapeutic Activities Neuromuscular Re-Ed Therapeutic Exercise Therapeutic Activities Neuromuscular Re-Ed Therapeutic Exercise Therapeutic Activities Neuromuscular Re-Ed Therapeutic Exercise Therapeutic Activities Neuromuscular Re-Ed Therapeutic Exercise Therapeutic Activities Neuromuscular Re-Ed Therapeutic Exercise Therapeutic Activities Neuromuscular Re-Ed Therapeutic Exercise Doc neg elder mal no plan PT Evaluation Low Complexity Therapeutic Activities Neuromuscular Re-Ed Advance Directives Directive Yes / No Effective Date File Name No Information Encounters Encounter Description Practice Location Reason(s) For Visit Diagnoses Date Provider Providers Copied on Encounter [facility] [place] [address], [place], [place], [id number], [place] tel:[phone] [place] No Information Jose G Hollie. . [facility], [place], [place], [id number], [place] tel:[phone] [place] No Information Scheldt Tina. . [facility], [place], [place], [id number], [place] tel:[phone] [place] No Information [place]t Tina. . [facility], [place], [place], [id number], [place] tel:[phone] [place] No Information [place]t Tina. . [facility], [place], [place], [id number], tel:[phone] [place] No Information [place] Tina. . [facility], [place], [place], [id number], [place] tel:[phone] [place] No Information [place] Tina. . [facility], [place], [place], [id number], [place] tel:[phone] [place] No Information Jose G Hollie. . [facility], [place], [place], [address], [place] tel:[phone] [place] No Information Jose G Hollie. . [facility], [place], [place], [id number], [place] tel:[phone] [place] No Information [place] Tina. . [facility], [place], [place], [id number], [place] tel:[phone] [place] No Information Jose G Hollie. . [facility], [place], [place], [id number], [place] tel:[phone] [place] No Information Figueroa Wilder. . [facility], [place], [place], [id number], tel:[phone] [place] No Information Jose G Hollie. . [facility], [place], [place], [id number], [place] tel:[phone] [place] No Information Short Kimberly. . [facility], [place], [place], [id number], [place] tel:[phone] [place] No Information Short Kimberly. . [facility], [place], [place], [id number], [place] tel:[phone] [place] No Information Short Kimberly. . [facility], [place], [place], [id number], [place] tel:[phone] [place] No Information Short Kimberly. . [facility], [place], [place], [address], [place] tel:[phone] [place] No Information Short Kimberly. . [facility], [place], [place], [id number], [place] tel:[phone] [place] No Information Short Kimberly. . [facility], [place], [place], [id number], [place] tel:[phone] [place] No Information Short Kimberly. . [facility], [place], [place], [id number], tel:[phone] [place] No Information Short Kimberly. . [facility], [place], [place], [id number], tel:[phone] [place] No Information Short Kimberly. . [facility], [place], [place], [id number], [place] tel:[phone] [place] No Information Short Kimberly. . [facility], [place], [place], [id number], tel:[phone] [place] No Information Short Kimberly. . [facility], [place], [place], [id number], [place] tel:[phone] [place] No Information Short Kimberly. . [facility], [place], [place], [id number], [place] tel:[phone] [place] No Information Short Kimberly. . [facility], [place], [place], [id number], [place] tel:[phone] [place] No Information Short Kimberly. . [facility], [place], [place], [id number], [place] tel:[phone] [place] No Information Short Kimberly. . [facility], [place], [place], [id number], [place] tel:[phone] [place] No Information Short Kimberly. . Family History Family Member Type Diagnosis Age At Onset No Information Payers Payer name Insurance type Covered libertarian ID Jenise nugent(s) Medicare [place] MB [id number] [facility] [id number] Social History Type Description Quantity Date Captured Comments Sex Female Smoking Status No Information Chief Complaint And Reason For Visit No Information Reason For Referral Reason For Referral No Information Plan Of Treatment Date Type Action Status Referral Ordered: Clinical Psychology (related to Depression) ordered Referral Ordered: Referrals: Specialist. Evaluate and Treat (related to Adjustment disorder with depressed mood) ordered Referral Ordered: Depression: Depression management program timeframe: 1 Day. (related to Depression) ordered History Of Present Illness Encounter Date Complaint History Of Prese nt Illness No Information Functional Status Date Functional Assessmen t No Information Instructions Date Instruction Additional Infor deyaniraion Giving encouragement to exercise Related to Overweight Giving encouragement to exercise Related to Overweight Assessments Type Assessment Date No Information Patient Care Teams Name Effective Dates (start - stop) Status Members No Information
--- OUTSIDE RECORDS SUMMARY | 2025-03-27 02:30 | XMS_ITS | Clinical Summary ---
Author Organization [facility] Address [address], [facility] [address] [place] [address] Phone Care Team Providers Care Effervescent Salts Compounder Name Role Phone Lee Jiang MD Primary Care Provider [phone] Allergies No known active allergies Medications insulin glargine (BASAGLAR KWIKPEN) 100 UNIT/ML Solution Pen-injector 20 Units by Subcutaneous route every evening. Active metFORMIN (GLUCOPHAGE) 1000 MG Tablet Take 2,000 mg by mouth 2 times daily (with meals). Active levothyroxine (SYNTHROID) 50 MCG Tablet Take 50 mcg by mouth daily. Active ursodiol (ACTIGALL) 250 MG Tablet Take 250 mg by mouth 2 times daily. Active metoprolol tartrate (LOPRESSOR) 50 MG Tablet Take 50 mg by mouth 2 times daily. Active sertraline (ZOLOFT) 50 MG Tablet Take 50 mg by mouth daily. Active lisinopril (PRINIVIL, ZESTRIL) 20 MG Tablet Take 20 mg by mouth daily. Active pantoprazole (PROTONIX) 20 MG Tablet Delayed Response Take 20 mg by mouth daily. Active simvastatin (ZOCOR) 20 MG Tablet Take 20 mg by mouth every evening. Active Cholecalciferol (VITAMIN D-3 PO) Take 5,000 Units by mouth daily. Active Family History Medical History Relation Name Comments Breast Cancer Sister Relation Name Status Comments Sister Social History Tobacco Use Types Packs/Day Years Used Date Smoking Tobacco: Every Day Cigarettes 0.5 20 Smokeless Tobacco: Never Tobacco Cessation:Ready to Q uit: No; Counseling Given: No Alcohol Use Standard Drinks/Week Comments Yes 0 (1 standard drink = 0.6 oz pur e alcohol) Rare Comments Unknown Sex and Gender Information Value Date Recorded Sex Assigned at Not on file Legal Sex Female 9:25 AM ACUTE CARE SURGEON Gender Identity Not on file Sexual Orientation Not on file Plan of Treatment Health Maintenance Due Date Last Done Comments DEXA Bone Density 1959 Hepatitis C Virus (HCV) Screening 1959 TdaP Immunization 1959 Pap Smear 1980 Cervical Cancer Screening (CCS) 1989 HPV/Cotest 1989 Mammogram 1999 Cologuard 2009 Immunochemical Fecal Occult Blood 2009 Pneumococcal Immunization (5 0+ years) (1 of 1 - PCV) 2009 Zoster Immunization (1 of 2) 2009 Colonoscopy 11/01/2022 11/01/2017 Colorectal Cancer Screening 11/01/2022 Influenza Immunization (#1) 2024 SARS-COV-2 Immunization ( - season) 2024 Respiratory Syncytial Virus (RSV) Immunization (Adult) (1 - 1-dose 75+ series) 2034 11/01/2017 Hepatitis B Immunization Aged Out No longer eligible based on patient's age to complete this topic Meningococcal Immunization (ACWY) Aged Out No longer eligible based on patient's age to complete this topic Pneumococcal Immunization Combined Aged Out No longer eligible based on patient's age to complete this topic Rotavirus Immunization Aged Out No lo nger eligible based on patient's age to complete this topic Procedures Procedure Name Priority Date/Time Associated Diagnosis Comments COLONOSCOPY Routine 11/01/2017 from Last 3 Months or Most Recently Relevant to Health Maintenance Results * COLONOSCOPY (11/01/2017) Miguel Barton DO PROCEDURE/MINOR SURGICAL ORDERA BLES Final Result from Last 3 Months or Most Recently Relevant to Health Maintenance Insurance MEDICARE [facility] Care Teams Effervescent Salts Compounder Relationship Specialty Start Date End Date Lee iJang MD [address] [place] [address] PCP - General Family Medicine 11/09/16
--- OUTSIDE RECORDS SUMMARY | 2025-03-27 02:30 | XMS_ITS | Clinical Summary ---
Author Organization [facility] [address] [facility] [address] Address [address] [place] [address] Care Team Providers Care Contract Driver Name Role Phone Nicolasa Jiang MD Unavailable Prince Webster MD Primary Care Provider [phone] Allergies No known active allergies Medications albuterol HFA (PROVENTIL HFA,VENTOLIN HFA,PROAIR HFA) 90 mcg/actuation inhaler Inhale 2 puffs every 6 hours Active fexofenadine (TYSON) 180 mg tablet Take 1 tablet (180 mg total) by mouth 04/18/20 17 Active levothyroxine (SYNTHROID, LEVOTHROID) 50 mcg tablet 04/17/20 17 Active metFORMIN (GLUCOPHAGE) 1,000 mg tablet Take 1 tablet (1,000 mg total) by mouth 2 (two) times a day with meals 03/08/20 17 Active ursodioL (ACTIGALL) 300 mg capsule 1 capsule (300 mg total) 3 10/31/20 18 Active traZODone (DESYREL) 50 mg tablet Take by mouth nightly 08/17/20 21 Active sertraline (ZOLOFT) 100 mg tablet Take 1 tablet (100 mg total) by mouth daily 07/14/20 21 Active apixaban (ELIQUIS) 5 mg tablet Take 1 tablet (5 mg total) by mouth 2 (two) times a day 60 tablet 11 09/13/20 21 Active magnesium oxide 400 mg magnesium capsuleIndicati ons:Paroxysmal atrial fibrillation (HCC) Take 0.5 tablets by mouth daily 30 capsule 11 10/10/20 22 Active Additional Information Patient not taking.Reported on 01/06/2025 metoprolol XL (TOPROL-XL) 100 mg 24 hr tablet Take 1 tablet (100 mg total) by mouth daily Active simvastatin (ZOCOR) 20 mg tablet Take 1 tablet (20 mg total) by mouth daily 09/29/20 23 Active Farxiga 10 mg tablet Take 1 tablet (10 mg total) by mouth every morning 11/02/20 23 Active Januvia 50 mg tablet Take 1 tablet (50 mg total) by mouth daily 11/03/20 23 Active acetaminophen (TYLENOL) 500 mg tablet Take 1 tablet (500 mg total) by mouth nightly as needed for pain Active folic acid (FOLVITE) 1 mg tablet Take 1 tablet (1,000 mcg total) by mouth daily 12/28/19 24 Active cyanocobalamin (Vitamin B-12) 1,000 mcg tabletIndicatio ns:Prevention of Vitamin B12 Deficiency Take 1 tablet (1,000 mcg total) by mouth daily Active lisinopril-hydr oCHLOROthiazide (ZESTORETIC) 20-12.5 mg per tabletIndicatio ns:hypertension TAKE 1 TABLET BY MOUTH DAILY 90 tablet 3 03/03/20 25 Active lisinopril-hydr oCHLOROthiazide (ZESTORETIC) 10-12.5 mg per tabletIndicatio ns:hypertension Take 1 tablet by mouth daily 025 Discontinued Active Problems Problem Noted Date Diagnosed Date Paroxysmal atrial fibrillation 09/13/2021 Essential hypertension 09/13/2021 Mixed hyperlipidemia 09/13/2021 Primary biliary cholangitis 10/04/2017 Overview (11/30/2018): Overview: 09/29/17 Fibroscan CAP 285, E 9.3 kPa Encounters Date Type Department Care Team Description 01/06/2025 10:45 AM NUTRITION AIDES TEACHER Office Visit [facility] [address] [place] [address] Sivan Storey MD Paroxysmal atrial fibrillation (HCC) (Primary Dx); Mixed hyperlipidemia; Essential hypertension from Last 3 Months Surgical History Surgery Date Site/Laterality Comments FL FLUORO GUIDED LUMBAR PUNCTURE 10/25/2018 Right FL FLUORO GUIDED LUMBAR PUNCTURE 01/03/2019 Right [place] FLUORO GUIDED LUMBAR PUNCTURE 08/20/2019 Right US ABDOMEN COMPLETE W LIVER DOPPLER (C) 09/22/2020 R ight Medical History Medical History Date Comments Diabetes (HCC) HTN (hypertension) Arrhythmia Family History Medical History Relation Name Comments No Known Problems Sister Relation Name Status Comments Sister Alive Social History Tobacco Use Types Packs/Day Years Used Date Smoking Tobacco: Every Day Cigarettes 0.5 30 Smokeless Tobacco: Never Tobacco Cessation:Ready to Q uit: Not Asked; Counseling Given: Not Answered Personal Safety Answer Date Recorded Have you ever been in or are you currently in a harmful physical or emotional relationship or is someone making you feel afraid or unsafe? Denies 05/22/2024 Comments No Sex and Gender Information Value Date Recorded Sex Assigned at Not on file Legal Sex Female 1:40 AM NUTRITION AIDES TEACHER Gender Identity Not on file Sexual Orientation Not on file Obstetrics History Last Filed Vital Signs Vital Sign Reading Time Taken Comments Blood Pressure 92/50 01/06/2025 10:43 AM NUTRITION AIDES TEACHER Pulse 56 01/06/2025 10:43 AM NUTRITION AIDES TEACHER Temperature 36.8 C (98.2 F) 05/22/2024 11:03 AM CDT Respiratory Rate 16 05/22/2024 11:0 5 AM CDT Oxygen Saturation 99% 01/06/2025 10: 43 AM NUTRITION AIDES TEACHER Inhaled Oxygen Concentration - - Weight 69.8 kg (153 lb 14.4 oz) 025 10:43 AM NUTRITION AIDES TEACHER Height 157.5 cm (5' 2 ) 01/06/2025 10:4 3 AM NUTRITION AIDES TEACHER Body Mass Index 28.15 01/06/2025 10:43 AM NUTRITION AIDES TEACHER Plan of Treatment Health Maintenance Due Date Last Done Comments Breast Cancer Screening-Mammogram 1959 Cervical Cancer Screening 1959 Colon Cancer Screening-Colonoscopy 1959 Depression Screening 1959 Hepatitis C Screening 1959 DTaP/Tdap/Td Vaccine (1 - Tdap) 1970 Hepatitis B Screening 1977 Zoster Vaccine (1 of 2) 2009 Pneumococcal vaccine 65+ (2 of 2 - PPSV23) 10/27/2020 09/01/2020 Fall Risk Assessment 09/13/2022 09/13/2021 Well Visit 65+ 2024 Covid-19 Vaccine (3 - 2023-2 5 season) 2024 02/11/2021, 01/22/2021 Influenza Vaccine (Season Ended) 2025 08/19/2022, 09/01/2020, 09/18/2019, Additional history exists Osteoporosis Screening-Bone Density Scan 10/24/2025 10/24/2023, 10/24/2023, 02/21/2023, Additional history exists Procedures Procedure Name Priority Date/Time Associated Diagnosis Comments ELECTROCARDIOGRAM REPORT Routine 025 2:41 PM NUTRITION AIDES TEACHER Paroxysmal atrial fibrillation (HCC) POCT LIPID PANEL Routine 01/06/2025 12:0 4 PM NUTRITION AIDES TEACHER Mixed hyperlipidemia from Last 3 Months Results * Electrocardiogram Report (01/06/2025 2:41 PM NUTRITION AIDES TEACHER) Sivan Storey MD ECG ORDERABLES Caterina l Result * POCT lipid panel (01/06/2025 12:04 PM NUTRITION AIDES TEACHER) Cholesterol, POC 124 mg/dL Comment:GLU = 105 HDL, POC 38 mg/dL Triglycerides, POC 147 mg/dL LDL Cholesterol POC 56 mg/dL Chol/HDL Ratio, POC 1.5 Non-HDL Cholesterol, POC 86 mg/dL Cholesterol Total, POC 124 mg/dL Capillary blood 01/06/2025 1 2:04 PM NUTRITION AIDES TEACHER Sivan Storey MD POINT OF CARE TEST O RDERABLES Final Result from Last 3 Months Insurance MEDICARE [facility] MEDICARE [facility] MEDICARE [facility] MEDICARE [facility] Care Teams Contract Driver Relationship Specialty Start Date End Date Prince Webster MD [address] [place] [address] PCP - General Family Medicine 01/09/23 Nicolasa Jiang MD [address] [place] [address] Family Medicine 07/19/21
--- OUTSIDE RECORDS SUMMARY | 2025-03-27 02:30 | XMS_ITS | Referral Summary ---
Author Organization [facility] [address] [facility] [address] Address [address] [place] [address] Care Team Providers Care Sinker Winder Name Role Phone Nicolasa Jiang MD Unavailable Prince Webster MD Primary Care Provider [phone] Encounters Date Type Department Care Team Description 01/06/2025 10:45 AM CLINICAL NURSING INTERN Office Visit [facility] [address] [place] [address] Sivan Storey MD Paroxysmal atrial fibrillation (HCC) (Primary Dx); Mixed hyperlipidemia; Essential hypertension from Last 3 Months Allergies No known active allergies Medications albuterol [...] 09/29/17 Fibroscan CAP 285, E 9.3 kPa Social History Tobacco Use Types Packs/Day Years [...] on file Legal Sex Female 1:40 AM CLINICAL NURSING INTERN Gender Identity Not on file Sexual Orientation Not on file Last Filed Vital Signs Vital Sign Reading Time Taken Comments Blood Pressure 92/50 01/06/2025 10:43 AM CLINICAL NURSING INTERN Pulse 56 01/06/2025 10:43 AM CLINICAL NURSING INTERN Temperature 36.8 C (98.2 F) 05/22/2024 11:03 AM CDT Respiratory Rate 16 05/22/2024 11:0 5 AM CDT Oxygen Saturation 99% 01/06/2025 10: 43 AM CLINICAL NURSING INTERN Inhaled Oxygen Concentration - - Weight 69.8 kg (153 lb 14.4 oz) 025 10:43 AM CLINICAL NURSING INTERN Height 157.5 cm (5' 2 ) 01/06/2025 10:4 3 AM CLINICAL NURSING INTERN Body Mass Index 28.15 01/06/2025 10:43 AM CLINICAL NURSING INTERN Plan of Treatment Not on file Procedures Procedure Name Priority Date/Time Associated Diagnosis Comments ELECTROCARDIOGRAM REPORT Routine 025 2:41 PM CLINICAL NURSING INTERN Paroxysmal atrial fibrillation (HCC) POCT LIPID PANEL Routine 01/06/2025 12:0 4 PM CLINICAL NURSING INTERN Mixed hyperlipidemia from Last 3 Months Results * Electrocardiogram Report (01/06/2025 2:41 PM CLINICAL NURSING INTERN) us Sivan Storey MD ECG ORDERABLES Caterina l Result * POCT lipid panel (01/06/2025 12:04 PM CLINICAL NURSING INTERN) Cholesterol, POC 124 mg/dL Comment:GLU = 105 HDL, POC 38 mg/dL Triglycerides, POC 147 mg/dL LDL Cholesterol POC 56 mg/dL Chol/HDL Ratio, POC 1.5 Non-HDL Cholesterol, POC 86 mg/dL Cholesterol Total, POC 124 mg/dL Capillary blood 01/06/2025 1 2:04 PM CLINICAL NURSING INTERN Sivan Storey MD POINT OF CARE TEST O RDERABLES Final Result from Last 3 Months Insurance MEDICARE [facility] MEDICARE [facility] ACC[facility] MEDICARE [facility] MEDICARE [facility] Care Teams Sinker Winder Relationship Specialty Start Date End Date Prince Webster MD [address] [place] [address] PCP - General Family Medicine 01/09/23 Nicolasa Jiang MD [address] [place] [address] Family Medicine 07/19/21
[2025-03-27] MEDS: LACTATED RINGERS 1,000 ML 150 ML IV CONT ×2 (09:54→12:00)
[2025-03-27 10:01] LABS: Glucose Point of Care 128 mg/dl (65-105)
--- NOTE | 2025-03-27 10:18 | PM.HPGS ---
History of Present Illness History of Present Illness Consent: Risks, benefits, and alternatives have been discussed and questions answered. Patient agrees to proceed with procedure. Chief complaint: Iron deficiency anemia, unspecified Narrative: Bel Gomes is a 64 year old female with anemia, last hgb 8.5, denies overt gib, last colonoscopy 6 years ago with polyp Review of Systems Review of Systems: All systems reviewed & are unremarkable except as noted in HPI and below PMFSH Past Medical History Medical History (Updated 03/26/25 @ 14:32 by Bipin Jimenez DO) Atrial fibrillation History of proteinuria syndrome associated with diabetes. doing well. Syncope considered vasovagal. Pelvic stress fracture Proteinuria Fractured pelvis Broken hip Right radial fracture Peripheral neuropathy Depression Liver disease Back pain Primary biliary cholangitis Chronic obstructive pulmonary disease, unspecified ct 5.20.21 mild emphysema Degeneration of lumbar or lumbosacral intervertebral disc Essential (primary) hypertension Hypothyroidism, unspecified Mixed hyperlipidemia Trigger finger of left thumb Type 2 diabetes mellitus with hyperglycemia Surgical History Surgical History H/O oral surgery H/O shoulder surgery bilateral Total knee replacement status 2009, 2013, bilateral Family History Family History Mother Diabetes mellitus Hypertension Family history of chronic obstructive pulmonary disease Sibling Family history of malignant neoplasm of breast Father Family history of sudden Social History Social History Smoking packs per day: 1 Smoking cigarettes per day: 20.0 Years smoked: 30 Smoking pack-years: 30.00 Smoking status: Current every day smoker Tobacco type: cigarettes Second hand tobacco smoke exposure: Yes Alcohol intake: never Substance use: never Substance use type: does not use Do You Feel Safe in your Home?: Yes Lack of Transportation: No Lack of Food: Never True Current Housing: I Have Housing Concerned About Future Housing: No Difficulty Paying Gas/Electric Bills: No Difficulty Paying for Meds: No Currently Unemployed: No Education: Decline to Answer Difficulty w/ Childcare or Family Care: No Living arrangements: alone Meds Home Medications and Allergies Home Medications ?Medication ?Instructions ?Recorded ?Confirmed ?Type fexofenadine 180 mg tablet 180 mg PO DAILY 02/12/20 03/27/25 History (Ling Allergy) albuterol sulfate 90 mcg/actuation 2 inh inhalation Q6H PRN shortness 12/14/23 03/19/25 Rx breath activated powder inhaler of breath or wheezing #1 ea mecobalamin (vitamin B12) 1,000 1,000 mcg PO DAILY #90 tabs 12/28/23 03/27/25 Rx mcg chewable tablet clotrimazole-betamethasone 1 1 applic topical PRN rash 06/12/24 02/18/25 History %-0.05 % topical cream lisinopril 20 1 tablet PO DAILY 06/12/24 03/27/25 History mg-hydrochlorothiazide 12.5 mg tablet ursodiol 300 mg capsule mg PO 06/12/24 02/18/25 History blood sugar diagnostic (OneTouch #50 ea 08/01/24 03/19/25 Rx Verio test strips) blood-glucose meter (OneTouch #1 ea 08/01/24 03/19/25 Rx Verio Flex Meter) lancets 33 gauge (OneTouch Delica #100 ea 08/01/24 03/19/25 Rx Plus Lancet) levothyroxine 50 mcg tablet See Rx Instructions .Route 09/13/24 03/27/25 Rx .COMPLEX #90 tabs simvastatin 20 mg tablet See Rx Instructions .Route 11/06/24 03/27/25 Rx .COMPLEX #90 tabs Farxiga 10 mg tablet 10 mg PO QAM #90 tabs 11/07/24 03/27/25 Rx (dapagliflozin propanediol) metoprolol succinate 100 mg 100 mg PO DAILY #90 tabs 12/09/24 03/27/25 Rx tablet,extended release 24 hr apixaban 5 mg tablet (Eliquis) See Rx Instructions .Route 12/12/24 03/27/25 Rx .COMPLEX #180 tabs sertraline 100 mg tablet 100 mg PO DAILY #90 tabs 01/13/25 03/27/25 Rx sitagliptin phosphate 50 mg tablet 50 mg PO DAILY #90 tabs 02/05/25 03/27/25 Rx (Januvia) ferrous sulfate 325 mg (65 mg 325 mg PO DAILY #90 tabs 02/19/25 03/27/25 Rx iron) tablet metformin 1,000 mg tablet 1,000 mg PO BIDWMEAL #180 tabs 03/07/25 03/27/25 Rx trazodone 50 mg tablet See Rx Instructions .Route 03/14/25 03/27/25 Rx .COMPLEX #180 tabs Allergies Allergy/AdvReac Type Severity Reaction Status Date / Time amoxicillin Allergy Unknown Unknown Verified 03/27/25 09:46 Vital Signs Vital Signs - 24 hr 03/27/25 09:47 Temperature 97.4 F L Pulse Rate 83 Respiratory Rate 18 Blood Pressure 150/61 H Pulse Oximetry 100 Oxygen Delivery Room Air Exam Const: General: comfortable and no acute distress HENMT: Face/Nose/Sinus: Normal nares present Eyes: General: appearance normal, both eyes and all related structures Neck: Neck: no JVD Resp: Auscultation: clear to auscultation bilaterally Cardio: Rate: regular rate Rhythm: regular rhythm GI: Inspection: non-distended GI Palp: Yes Soft to palpation Skin: General skin exam: normal color Neuro: Speech: normal speech Extrem: General: normal to inspection Psych: Mental Status: mental status grossly normal Assessment and Plan Assessment and plan (1) Anemia: Qualifiers: Anemia type: unspecified type Qualified Code(s): D64.9 - Anemia, unspecified Code(s): D64.9 - Anemia, unspecified Status: Acute Assessment and Plan: colonoscopy she also uses eliquis- now on hold in preparation for procedure
[2025-03-27] MEDS: METOPROLOL TARTRATE INJ 5 MG/5 ML VIAL IV PUSH ×2 (11:26→12:00)
[2025-03-27] MEDS: dilTIAZem HCl INJ 25 MG/5 ML VIAL 10 MG IV PUSH (12:23)
--- NOTE | 2025-03-27 12:25 | SUR.PHASEII ---
1120- Called and spoke with Dr. Jimenez regarding patients HR in post-op. Dr. Jimenez came to bedside, and gave orders for 5mg of IV metoprolol once. 1150- Called and updated Dr. Jimenez that patients HR remains 120-130s. Per Dr. Jimenez, give patient a second dose of 5mg IV metoprolol. If this dose does not bring HR below 100 in 10min, order and administer 10mg of IV diltiazem once.
[2025-03-27] MEDS: dilTIAZem HCl INJ 25 MG/5 ML VIAL 15 MG IV PUSH (12:43)
--- NOTE | 2025-03-27 14:07 | WPDANESPN ---
Anes - Prog Note Post-Op Date/Time: 03/27/25 14:07 Cardiovascular status: other (A fib RVR) Vital Signs: Last Vital Signs Temp 36.3 C L 03/27/25 09:47 Pulse 111 H 03/27/25 13:50 Resp 23 H 03/27/25 13:50 BP 110/84 03/27/25 13:50 Pulse Ox 97 03/27/25 13:50 O2 Del Method Room Air 03/27/25 13:50 Pain Score (VAS): 0 I/O: Intake & Output 03/26/25 03/27/25 03/27/25 23:59 07:59 15:59 Intake Total 1000 Output Total 1100 Balance -100 03/27/25 09:58 POC Capillary Glucose 128 H Patient Feedback: Patient found to be in A fib RVR with HR 120-130s after colonoscopy. Patient asymptomatic. Patient over the course of 2 hours was given 10 mg metoprolol, 25 mg digoxin and 2 L of fluid with no help. Cardiology consulted and advised patient go to ER for admission to hospital.
--- NOTE | 2025-03-27 14:10 | SUR.PHASEII ---
Addendum entered by Sathish Hernandez RN 03/27/25 14:31: ED Charge nurse Colt notified about doctor Josue order not to restart Eliquis for 3 days post procedure, SAMIRA Gregory verbalized understanding. Original Note: Dr. Jimenez spoke with cardiology team hear at [facility] and recommended admission to ED, Hand off given to charge nurse Gregory, IV left in per MD order, pt. transferred to ED room 1 via wheelchair without difficulty.
== END | disposition home or self-care (01) ==
PROVIDERS: PCP Family Medicine; Referring Provider Family Medicine; Visit Provider Internal Medicine Gastroenterology
PROC: 0DJD8ZZ Inspection of Lower Intestinal Tract, Via Natural or Artificial Opening Endoscopic (ICD-10-PCS; CPT 45378; principal; 2025-03-27 11:00)
DX: D12.0 Benign neoplasm of cecum (principal); D12.2 Benign neoplasm of ascending colon; D12.3 Benign neoplasm of transverse colon; K64.8 Other hemorrhoids; K57.30 Diverticulosis of large intestine without perforation or abscess without bleeding; D64.9 Anemia, unspecified; J44.9 Chronic obstructive pulmonary disease, unspecified; I10 Essential (primary) hypertension; E03.9 Hypothyroidism, unspecified; E78.2 Mixed hyperlipidemia; E11.65 Type 2 diabetes mellitus with hyperglycemia; I48.91 Unspecified atrial fibrillation; G62.9 Polyneuropathy, unspecified; F32.A Depression, unspecified; K76.9 Liver disease, unspecified; F17.210 Nicotine dependence, cigarettes, uncomplicated; Z79.51 Long term (current) use of inhaled steroids; Z79.84 Long term (current) use of oral hypoglycemic drugs; Z79.01 Long term (current) use of anticoagulants; Z98.890 Other specified postprocedural states; Z86.0100 Personal history of colon polyps, unspecified; Z80.3 Family history of malignant neoplasm of breast
CPT/HCPCS: 45385; 82948; 88305; J2003; J2704; J7120

== ENCOUNTER 2025-03-27 14:09 | Inpatient (IN) | payer MEDICARE, BC, SELFPAY ==
[2025-03-27] VITALS (33 sets, daily range): BP systolic 108–165; BP diastolic 40–99; PULSE 88–151; RESP 14–40; TEMP 36.7–37; O2SAT 80–100; BMI 28.2
--- NOTE | ~2025-03-27 | XR_ITS ---
EXAMINATION: XR chest 2V 03/27/2025 14:53 INDICATION: Chest palpitations PROCEDURE: 2 view chest COMPARISON: No prior studies for comparison. FINDINGS: The lungs are clear. The cardiomediastinal silhouette is within normal limits. There are no pleural effusions. There is no pneumothorax suspected. IMPRESSION: 1: NO ACUTE CARDIOPULMONARY DISEASE. Reviewed, dictated and finalized at location A.
--- NOTE | 2025-03-27 14:13 | ECG_ITS ---
Test Date: 2025-03-27 14:21:57 Measurements Intervals [place] Rate: 133 P: 0 AK: 0 QRS: -17 QRSD: 99 T: 65 QT: 303 QTc: 452 Interpretive Statements ATRIAL FLUTTER/TACHYCARDIA WITH RAPID VENTRICULAR RESPONSE MODERATE ST DEPRESSION [0.05+ mV ST DEPRESSION] No previous ECG available for comparison Electronically Signed On 03-28-2025 18:59:18 CDT by Char Mederos
[2025-03-27] MEDS: DIGOXIN INJ 250 MCG/ML 2 ML AMP (*BKC) 500 MCG IV PUSH (14:38)
[2025-03-27 14:40] LABS: Basophils Percent Auto 0.5 % (0.2-1.2); Eosinophils Absolute Auto 0.1 K/mm3 (0-0.3); Eosinophils Percent Auto 1.6 % (0-4.4); Hematocrit 36.6 % (37.0-47.0); Hemoglobin 11.3 g/dL (12.0-15.0); Immature Granulocyte Absolute 0.02 K/mm3 (0.00-0.031); Immature Granulocyte Percent A 0.3 % (0-0.5); Lymphocytes Absolute Auto 0.94 K/mm3 (0.9-3.2); Lymphocytes Percent Auto 16.3 % (18.3-44.2); Mean Corpuscular HGB Conc 30.9 g/dl (32-36); Mean Corpuscular Hemoglobin 29.5 pg (26-34); Mean Corpuscular Volume 95.6 fl (80-100); Mean Platelet Volume 9.5 fl (7.4-10.4); Monocytes Absolute Auto 0.3 K/mm3 (0.1-0.6); Neutrophils Absolute Auto 4.4 K/mm3 (1.3-6.7); Neutrophils Percent Auto 76.3 % (45.5-73.1); Platelet Count Result 189 k/mm3 (150-375); Red Blood Count 3.83 M/mm3 (4.2-5.4); Red Cell Distribution Width 17.6 % (11.5-14.5); White Blood Count 5.8 K/mm3 (4.5-10.0)
[2025-03-27 14:55] LABS: Alanine Aminotransferase 25 U/L (6-35); Albumin Level 4.2 g/dL (3.5-5.1); Alkaline Phosphatase 126 U/L (38-126); Anion Gap 7 mmol/L (4-12); Aspartate Amino Transferase 47 U/L (14-36); Bilirubin,Total 0.3 mg/dL (0.2-1.3); Blood Urea Nitrogen 7 mg/dL (7-17); Calcium 8.7 mg/dL (8.4-10.2); Carbon Dioxide 28 mmol/L (22-30); Chloride 102 mmol/L (98-107); Estimated Glomerular Filt Rate > 60; Glucose 136 mg/dL (65-110); Lipase 115 U/L (23-300); Potassium 4.2 mmol/L (3.4-5.0); Sodium 137 mmol/L (137-145)
[2025-03-27 14:56] LABS: Prothrombin Time 13.9 Seconds (11.1-14.7)
[2025-03-27 14:57] LABS: Partial Thromboplastin Time 24.2 Seconds (22.3-36.8)
--- OUTSIDE RECORDS SUMMARY | 2025-03-27 14:57 | XMS_ITS | Clinical Summary ---
Author Organization [facility] Address [address], [facility] [address] [place] [address] Phone Care Team Providers Care Die Set Up Worker Name Role Phone Lee Jiang MD Primary Care Provider [phone] [phone] Allergies No known active allergies Medications insulin [...] on file Legal Sex Female 9:25 AM SUPERINTENDENT SEED MILL Gender Identity Not on file Sexual Orientation [...] Recently Relevant to Health Maintenance Insurance MEDICARE [facility] Care Teams Die Set Up Worker Relationship Specialty Start Date End Date Lee Jiang MD [address] [place] [address] PCP - General Family Medicine 11/09/16
--- OUTSIDE RECORDS SUMMARY | 2025-03-27 14:57 | XMS_ITS | Referral Summary ---
Author Organization [facility] [place] [address] [place] [address] 162 [address] [facility] [address] [place] [address] Care Team Providers Care Residential Substance Abuse Counselor Name Role Phone Nicolasa Jiang MD Unavailable Prince Webster MD Primary Care Provider [phone] Encounters Date Type Department Care Team Description 03/27/2025 Telephone [facility] Cardiology [address] [place] [address] [address] [place] [address] Sivan Storey MD 01/06/2025 10:45 AM FAMILY CONSUMER SCIENCE TEACHER Office Visit [facility] Cardiology [address] [place] [address] [address] [place] [address] Sivan Storey MD Paroxysmal atrial fibrillation (HCC) (Primary Dx); Mixed hyperlipidemia; Essential hypertension from Last 3 Months Allergies No known active allergies Medications albuterol HFA (PROVENTIL HFA,VENTOLIN HFA,PROAIR HFA) 90 mcg/actuation inhaler Inhale 2 puffs every 6 hours Active fexofenadine (TYSNO) 180 mg tablet Take 1 tablet (180 [...] on file Legal Sex Female 1:40 AM FAMILY CONSUMER SCIENCE TEACHER Gender Identity Not on file Sexual Orientation Not on file Last Filed Vital Signs Vital Sign Reading Time Taken Comments Blood Pressure 92/50 01/06/2025 10:43 AM FAMILY CONSUMER SCIENCE TEACHER Pulse 56 01/06/2025 10:43 AM FAMILY CONSUMER SCIENCE TEACHER Temperature 36.8 C (98.2 F) 05/22/2024 11:03 AM CDT Respiratory Rate 16 05/22/2024 11:0 5 AM CDT Oxygen Saturation 99% 01/06/2025 10: 43 AM FAMILY CONSUMER SCIENCE TEACHER Inhaled Oxygen Concentration - - Weight 69.8 kg (153 lb 14.4 oz) 025 10:43 AM FAMILY CONSUMER SCIENCE TEACHER Height 157.5 cm (5' 2 ) 01/06/2025 10:4 3 AM FAMILY CONSUMER SCIENCE TEACHER Body Mass Index 28.15 01/06/2025 10:43 AM FAMILY CONSUMER SCIENCE TEACHER Plan of Treatment Not on file Procedures Procedure Name Priority Date/Time Associated Diagnosis Comments ELECTROCARDIOGRAM REPORT Routine 025 2:41 PM FAMILY CONSUMER SCIENCE TEACHER Paroxysmal atrial fibrillation (HCC) POCT LIPID PANEL Routine 01/06/2025 12:0 4 PM FAMILY CONSUMER SCIENCE TEACHER Mixed hyperlipidemia from Last 3 Months Results * Electrocardiogram Report (01/06/2025 2:41 PM FAMILY CONSUMER SCIENCE TEACHER) us Jenifereejun Storey MD ECG ORDERABLES Caterina l Result * POCT lipid panel (01/06/2025 12:04 PM FAMILY CONSUMER SCIENCE TEACHER) Cholesterol, POC 124 mg/dL Comment:GLU = 105 HDL, POC 38 mg/dL Triglycerides, POC 147 mg/dL LDL Cholesterol POC 56 mg/dL Chol/HDL Ratio, POC 1.5 Non-HDL Cholesterol, POC 86 mg/dL Cholesterol Total, POC 124 mg/dL Capillary blood 01/06/2025 1 2:04 PM FAMILY CONSUMER SCIENCE TEACHER Sivan Storey MD POINT OF CARE TEST O RDERABLES Final Result from Last 3 Months Insurance MEDICARE [facility] MEDICARE [facility] MEDICARE [facility] MEDICARE [facility] Care Teams Residential Substance Abuse Counselor Relationship Specialty Start Date End Date Prince Webster MD [address] [place] [address] PCP - General Family Medicine 01/09/23 Nicolasa Jiang MD [address] [place] [address] Family Medicine 07/19/21
--- OUTSIDE RECORDS SUMMARY | 2025-03-27 14:57 | XMS_ITS | Clinical Summary ---
Author Organization [facility] [place] [address] [facility] [address] [place] [address] Care Team Providers Care Bowstring Maker Name Role Phone Nicolasa Jiang MD Unavailable Prince Webster MD Primary Care Provider [phone] Allergies No known active allergies Medications albuterol [...] Type Department Care Team Description 03/27/2025 Telephone [facility] Cardiology [address] [place] [address] Sivan Storey MD 01/06/2025 10:45 AM ANATOMY PROFESSOR Office Visit [facility] Cardiology [address] [place] [address] Sivan Storey MD Paroxysmal atrial fibrillation (HCC) [...] on file Legal Sex Female 1:40 AM ANATOMY PROFESSOR Gender Identity Not on file Sexual Orientation Not on file Obstetrics History Last Filed Vital Signs Vital Sign Reading Time Taken Comments Blood Pressure 92/50 01/06/2025 10:43 AM ANATOMY PROFESSOR Pulse 56 01/06/2025 10:43 AM ANATOMY PROFESSOR Temperature 36.8 C (98.2 F) 05/22/2024 11:03 AM CDT Respiratory Rate 16 05/22/2024 11:0 5 AM CDT Oxygen Saturation 99% 01/06/2025 10: 43 AM ANATOMY PROFESSOR Inhaled Oxygen Concentration - - Weight 69.8 kg (153 lb 14.4 oz) 025 10:43 AM ANATOMY PROFESSOR Height 157.5 cm (5' 2 ) 01/06/2025 10:4 3 AM ANATOMY PROFESSOR Body Mass Index 28.15 01/06/2025 10:43 AM ANATOMY PROFESSOR Plan of Treatment Health Maintenance Due Date [...] Comments ELECTROCARDIOGRAM REPORT Routine 025 2:41 PM ANATOMY PROFESSOR Paroxysmal atrial fibrillation (HCC) POCT LIPID PANEL Routine 01/06/2025 12:0 4 PM ANATOMY PROFESSOR Mixed hyperlipidemia from Last 3 Months Results * Electrocardiogram Report (01/06/2025 2:41 PM ANATOMY PROFESSOR) Sivan Storey MD ECG ORDERABLES Caterina l Result * POCT lipid panel (01/06/2025 12:04 PM ANATOMY PROFESSOR) Cholesterol, POC 124 mg/dL Comment:GLU = 105 HDL, POC 38 mg/dL Triglycerides, POC 147 mg/dL LDL Cholesterol POC 56 mg/dL Chol/HDL Ratio, POC 1.5 Non-HDL Cholesterol, POC 86 mg/dL Cholesterol Total, POC 124 mg/dL Capillary blood 01/06/2025 1 2:04 PM ANATOMY PROFESSOR Sivan Storey MD POINT OF CARE TEST O RDERABLES Final Result from Last 3 Months Insurance MEDICARE [facility] MEDICARE [facility] MEDICARE [facility] Care Teams Bowstring Maker Relationship Specialty Start Date End Date Prince Webster MD [address] [place] [address] PCP - General Family Medicine 01/09/23 Nicolasa Jiang MD [address] [place] [address] Family Medicine 07/19/21
--- OUTSIDE RECORDS SUMMARY | 2025-03-27 14:57 | XMS_ITS | Encounter Summary ---
Author Organization [facility] Healthcare Address [address] [place] [address] Care Team Providers Care Dry Cleaning Machine Operator Helper Name Role Phone Nicolasa Jiang MD Unavailable Prince Webster MD Primary Care Provider [phone] Encounter Details Date Type Department Care Team (Late st Contact Info) Description 03/27/2025 Telephone [facility] Cardiology [address] [place] [address] Sivan Storey MD [address] [place] [address] Social History Tobacco Use Types Packs/Day Years Used Date Smoking Tobacco: Every Day Cigarettes 0.5 30 Smokeless Tobacco: Never Personal Safety Answer Date Recorded Have you ever been in or are you currently in a harmful physical or emotional relationship or is someone making you feel afraid or unsafe? Denies 05/22/2024 Comments No Sex and Gender Information Value Date Recorded Sex Assigned at Not on file Legal Sex Female 1:40 AM FRICTION SAW OPERATOR Gender Identity Not on file Sexual Orientation Not on file documented as of this encounter Miscellaneous Notes * Telephone Encounter - Elizabeth Bolton RN - 03/27/2025 1:46 PM CDT Forwarded message on to providers covering [facility]- and Dr. Mederos. * Telephone Encounter - Treva Patel - 03/27/2025 1:33 PM CDT Meg w/ [facility] called stating that the pt just had a Colonoscopy and is in post op currently. While in post op the pts heart rate has been going up. They have given her 10 mg total of IV metoprolol and 25 mg total of IV diltiazem. The yard supervisor Dr. Jimenez is concerned and would like to speak to either LATA or his RN. Please advise Thank you Contact: Contact: ( Dr. Jimenez's extension) documented in this encounter Plan of Treatment Not on file documented as of this encounter Visit Diagnoses Not on filedocumented in this encounter Care Teams Dry Cleaning Machine Operator Helper Relationship Specialty Start Date End Date Prince Webster MD [address] [place] [address] PCP - General Family Medicine 01/09/23 Nicolasa Jiang MD [address] [place] [address] Family Medicine 07/19/21 documented as of this encounter
--- OUTSIDE RECORDS SUMMARY | 2025-03-27 14:57 | XMS_ITS | Clinical Summary ---
Author Organization [facility] Address [address] [place] [address] Phone Care Team Providers Care Radar Technician Name Role Phone Unavailable Primary Care Provider [...] Influenza Vaccine (Season Ended) 2025 Insurance MEDICARE [facility]
--- OUTSIDE RECORDS SUMMARY | 2025-03-27 14:57 | XMS_ITS | Clinical Summary ---
Author Organization [facility] Address [address] [facility] [place] [address] Care Team Providers Care Powder Coater Name Role Phone Nicolasa Jiang MD Primary Care Provider Source Comments [facility],non-owned Affiliates and Associated Physician Practices is amultiple site organization consisting of ambulatory clinics and hospital sitesin [place], [place], [place] and [place]. This disclosure is being madepursuant to the Care Everywhere program and may not contain all information available regarding this patient. Last updated 18.[facility] Allergies No known active allergies Medications * [...] by mouth once daily Active HYDROcodone-avila taminophen ([place]) 5-325 MG tablet Take 1 (one) tablet [...] Orders Only [facility] [address] [place] [address] Ben Cuevas RN Primary biliary cholangitis from Last 3 Months Immunizations Immunization Administration Dates Next Due CovPlanGrid primary monoval ent 12+ yr 0.3mL Purple [...] on file Legal Sex Female 5:20 PM HADOOP ARCHITECT Gender Identity Not on file Sexual Orientation [...] each visit Medical Devices Implanted Type Area Cancer Spec Device Identifier Shelf Expiration Date Model / Serial / Lot Nail Im 10mm 18cm Trgn Intrtn Intrtroch - Sn/A Implanted:Qty: 1 on 08/20/2022 by Jeremiah Wilkerson MD at [facility] Left: Hip [employer] 04/18/2032 [id number] / N/A / [id number] Kit Screw 95mm 11.5mm 7mm Intrtn Troch - Sn/A Implanted:Qty: 1 on 08/20/2022 by Jeremiah Wilkerson MD at [facility] Left: Hip [employer] 04/15/2032 [id number] / N/A / [id number] Screw 5mm 32.5mm Lopro Intnl Hex Fem - Sn/A Implanted:Qty: 1 on 08/20/2022 by Jeremiah Wilkerson MD at [facility] Scientologysanjay Santiago Left: Hip [employer] 06/19/2031 [id number] / N/A / [id number] Procedures Procedure Name Priority Date/Time Associated Diagnosis Comments DEXA BONE DENSITY AXIAL SKELETON Routine 10/24/2023 9:00 AM HADOOP ARCHITECT Research study patient COMPREHENSIVE METABOLIC PANEL Routine 07/24/2023 9:40 AM CDT Primary biliary cholangitis NAFLD (nonalcoholic fatty liver disease) Age-related osteoporosis without current pathological fracture Hepatic fibrosis, stage 3 HEMOGLOBIN A1C Routine 12/11/2019 8:07 AM HADOOP ARCHITECT Controlled type 2 diabetes mellitus without complication, with long-term current use of insulin HEPATITIS C ANTIBODY Routine 04/18/2017 12:29 PM CDT from Last 3 Months or Most Recently Relevant to Health Maintenance Results * BONE DENSITY AXIAL SKELETON(1OR MORE SITES)[id number] (10/24/2023 9:00 AM HADOOP ARCHITECT) Anatomical Region Laterality Modality Other 10/24/2023 10:0 6 AM HADOOP ARCHITECT Narrative 10/24/2023 10:32 AM HADOOP ARCHITECT PROCEDURE: DEXA BONE DENSITY AXIAL SKELETON DATE/TIME [...] below > Dictated by Elaine Tijerina MD (Vocational Nurse) 10/24/2023 10:06 AM Herrera Sams DO have [...] below > Dictated by Elaine Tijerina MD (Vocational Nurse) 10/24/2023 10:06AM Herrera Sams DO have personally reviewed and interpreted this examination/study. > Interpreting Provider: Herrera Whitfield DO on 10/24/2023 10:32 AM Mo Crespo MD DEXA ORDERABLES Final Result * (ABNORMAL) COMPREHENSIVE METABOLIC PANEL (07/24/2023 9:40 AM [facility]) BUN 12 7 - 26 mg/dL 07/24/2023 10:28 AM [facility] Creatinine 0.55(L) 0.56 - 0.96 mg/dL 07/24/2023 10:28 AM [facility] Sodium 134(L) 136 - 145 mmol/L 07/24/2023 10:28 AM [facility] Potassium 3.9 3.5 - 4.5 mmol/L 07/24/2023 10:28 AM [facility] Chloride 102 98 - 107 mmol/L 07/24/2023 10:28 AM [facility] CO2 25 22 - 29 mmol/L 07/24/2023 10:28 AM [facility] Glucose 108 70 - 115 mg/dL 07/24/2023 10:28 AM [facility] Calcium 8.7 8.4 - 10.2 mg/dL 07/24/2023 10:28 AM [facility] Protein Total 7.2 6.0 - 8.3 g/dL 07/24/2023 10:28 AM [facility] Albumin 3.5 3.4 - 5.0 g/dL 07/24/2023 10:28 AM [facility] Bilirubin Total 0.4 0.2 - 1.2 mg/dL 07/24/2023 10:28 AM [facility] Alkaline Phosphatase 143 40 - 150 U/L 07/24/2023 10:28 AM [facility] ALT 19 5 - 55 U/L 07/24/2023 10:28 AM [facility] AST 28 5 - 34 U/L 07/24/2023 10:28 AM [facility] Anion Gap 11 8 - 18 07/24/2023 10:28 AM [facility] BUN/Creatinine Ratio 22 7 - 23 07/24/2023 10:28 AM CDT [facility] Osmolality Calculated 278 270 - 300 mOsm/kg 07/24/2023 10:28 AM T [facility] Albumin/Globulin Ratio 0.9(L) 1.1 - 2.3 07/24/2023 10:28 AM CDT [facility] eGFR by CKD-EPI >90 >=90 mL/min/1.7 3 m2 07/24/2023 10:28 AM T [facility] Blood BLOOD SPECIMEN / Unknown Lab Venipuncture / Unknown 07/24/2023 9:40 AM CDT 07/24/2023 9:55 AM CDT us Jayde Skaggs MD LAB - CHEMISTRY ORDERABLES Fi nal Result Performing Organization Address City/[facility]/ZIP Co de Phone Number [facility] [address] [place] [phone], [facility] [phone] * (ABNORMAL) HEMOGLOBIN A1C (12/11/2019 8:07 AM HADOOP ARCHITECT) Hemoglobin A1c 9.9(H) 4.8 - 5.6 % [facility] Comment: . Prediabetes: 5.7 - 6.4 Diabetes: >6.4 Glycemic control for adults with diabetes: <7.0 FASTING Blood BLOOD SPECIMEN / Unknown 12/11/2019 8:07 AM HADOOP ARCHITECT 12/11/2019 Narrative [facility] INSURANCE BILL - 12/12/2019 7:08 AM HADOOP ARCHITECT A courtesy copy of this report has been sent to [phone] Resulting Agency Comment Lab [facility] performed at: [facility] [address] [facility] [phone] us Trip Patel MD LAB - CHEMISTRY ORDERAB LES Final Result [facility]ILL [address] [place] [address] * HEPATITIS C ANTIBODY (04/18/2017 12:29 PM CDT) Hepatitis C Antibody Non-react cassandra Non-reac tive [facility] Comment: Hepatitis C Antibody screen [...] LAB - CHEMISTRY ORDERAB LES Final Result [facility] [address] [phone] from Last 3 Months or Most Recently Relevant to Health Maintenance Insurance MEDICARE [facility] MEDICARE [facility] MEDICARE [facility] Advance Directives * Full Code (Latest Code Status on File) Date Activated Date Inactivated Comments 08/20/2022 2:02 PM 08/25/2022 3:30 PM * Full Code Date Activated Date Inactivated Comments 08/17/2022 11:56 PM 08/20/2022 2:02 PM Care Teams Powder Coater Relationship Specialty Start Date End Date Nicolasa Jiang MD [address] [place] [id number] PCP - General 07/10/18
--- NOTE | 2025-03-27 15:03 | ED.ARRPALP ---
HPI - Arrhythmia/Palpitations General Chief Complaint: Arrhythmia/Palpitations <Roxana Garcia PA-C - Last Filed: 03/27/25 17:34> Stated Complaint: afib <Roxana Garcia PA-C - Last Filed: 03/27/25 17:34> Time Seen by Provider: 03/27/25 14:17 <LENORE Bradley Last Filed: 03/27/25 17:34> Source: patient <LENORE Bradley Last Filed: 03/27/25 17:34> Mode of arrival: ambulatory <LENORE Bradley Last Filed: 03/27/25 17:34> Limitations: no limitations <LENORE Bradley Last Filed: 03/27/25 17:34> History of Present Illness HPI narrative: Patient is a 64 y/o female who presents to the ED with report of AFIB with RVR. Patient underwent routine colonoscopy today with Dr. Salas. After the procedure, she was found to be in AFIB with RVR, rates in the 130s-140s. Patient does have known history of AFib. Is on Eliquis 5 mg b.i.d., metoprolol succinate [address] Titus with Cardiology. Anesthesiology monitored patient for a few hours, given 2 L of fluid, 10 mg IV push of metoprolol, 25 mg IV push of diltiazem without significant change in patient's heart rate. She was then sent to the ED for further evaluation. Patient reports she feels perfectly fine. Denies dizziness, lightheadedness, weakness, nausea, vomiting, chest pain, shortness of breath. <LENORE Bradley Last Filed: 03/27/25 17:34> Related Data Home Medications: Home Medications ?Medication ?Instructions ?Recorded ?Confirmed ?Last Taken ?Type fexofenadine 180 mg tablet 180 mg PO DAILY 02/12/20 03/27/25 03/26/25 History (Ling Allergy) clotrimazole-betamethasone 1 1 applic topical Q12H PRN rash 06/12/24 03/27/25 Unknown History %-0.05 % topical cream lisinopril 20 1 tablet PO DAILY 06/12/24 03/27/25 03/26/25 History mg-hydrochlorothiazide 12.5 mg tablet ursodiol 300 mg capsule 300 mg PO DAILY 06/12/24 03/27/25 03/26/25 History <Roxana Garcia PA-C - Last Filed: 03/27/25 17:34> Allergies/Adverse Reactions: Allergies Allergy/AdvReac Type Severity Reaction Status Date / Time amoxicillin Allergy Unknown Unknown Verified 03/27/25 09:46 <Roxana Garcia PA-C - Last Filed: 03/27/25 17:34> Review of Systems Review of Systems: All systems reviewed & are unremarkable except as noted in HPI. <LENORE Bradley Last Filed: 03/27/25 17:34> All systems reviewed & are unremarkable except as noted in HPI and below <LENORE Bradley Last Filed: 03/27/25 17:34> [facility] Past Medical History Medical History: Medical History (Updated 03/27/25 @ 18:33 by Ashlyn Naranjo APRN) Iron deficiency anemia Vitamin D deficiency Vitamin B12 deficiency Atrial fibrillation History of proteinuria syndrome associated with diabetes. doing well. Syncope considered vasovagal. Pelvic stress fracture Proteinuria Broken hip Right radial fracture Peripheral neuropathy Depression Liver disease Primary biliary cholangitis Chronic obstructive pulmonary disease, unspecified ct 5.20.21 mild emphysema Degeneration of lumbar or lumbosacral intervertebral disc Essential (primary) hypertension Hypothyroidism, unspecified Mixed hyperlipidemia Trigger finger of left thumb Type 2 diabetes mellitus with hyperglycemia <LENORE Bradley Last Filed: 03/27/25 17:34> Surgical History Surgical History: Surgical History (Updated 03/27/25 @ 18:26 by Ashlyn Naranjo APRN) History of tubal ligation H/O oral surgery H/O shoulder surgery bilateral Total knee replacement status 2009, 2013, bilateral <LENORE Bradley Last Filed: 03/27/25 17:34> Family History Family History: Family History Mother Diabetes mellitus Hypertension Family history of chronic obstructive pulmonary disease Sibling Family history of malignant neoplasm of breast Father Family history of sudden <Roxana Garcia PA-C - Last Filed: 03/27/25 17:34> Social History Social History: Social History Smoking packs per day: 1 Smoking cigarettes per day: 20.0 Years smoked: 30 Smoking pack-years: 30.00 Smoking status: Current every day smoker Tobacco type: cigarettes Second hand tobacco smoke exposure: Yes Alcohol intake: never Substance use: never Substance use type: does not use Do You Feel Safe in your Home?: Yes Lack of Transportation: YES Lack of Food: Never True Current Housing: I Have Housing Concerned About Future Housing: No Difficulty Paying Gas/Electric Bills: No Difficulty Paying for Meds: No Currently Unemployed: No Education: High School Diploma/GED Difficulty w/ Childcare or Family Care: No Living arrangements: alone Spiritual care concerns: No <Roxana Garcia PA-C - Last Filed: 03/27/25 17:34> Exam Narrative: GENERAL: Appears older than stated age, non-toxic, in no acute distress. HEAD: Normocephalic, atraumatic. RESPIRATORY: Airway patent, respirations nonlabored. Coarse lung sounds in bases bilaterally. No significant wheezing or rhonchi. CARDIOVASCULAR: Tachycardic with irregular rhythm without murmurs, rubs, or gallops. ABDOMINAL: Soft, nontender, nondistended. Normoactive BS. MUSCULOSKELETAL: Moves all extremities. No gross deformities. No peripheral edema. No calf tenderness. SKIN: Warm, dry, normal color. NEURO: A&O X3. Speech clear. Cranial nerves II-XII grossly intact. Steady gait. No ataxic movements. PSYCHIATRIC: Appropriate mood and affect. Normal interaction. <Roxana Garcia PA-C - Last Filed: 03/27/25 17:34> Course TUBE MACHINE OPERATOR/PA Physician Supervision For this patient encounter, I reviewed the TUBE MACHINE OPERATOR or PA documentation, treatment plan, and medical decision making; and I had [id number] time with this patient. <Jovon Can MD - Last Filed: 03/27/25 20:57> Vital Signs Vital signs: Vital Signs Pulse Rate 141 H 03/27/25 14:26 Respiratory Rate 28 H 03/27/25 14:26 Pulse Oximetry 97 03/27/25 14:26 Temperature 98.3 F 03/27/25 19:43 Pulse Rate 114 H 03/27/25 19:43 Respiratory Rate 18 03/27/25 19:43 Blood Pressure 123/40 L 03/27/25 19:43 Pulse Oximetry 97 03/27/25 19:43 <Roxana Garcia PA-C - Last Filed: 03/27/25 17:34> Vital Signs Pulse Rate 141 H 03/27/25 14:26 Respiratory Rate 28 H 03/27/25 14:26 Pulse Oximetry 97 03/27/25 14:26 Temperature 98.3 F 03/27/25 19:43 Pulse Rate 114 H 03/27/25 19:43 Respiratory Rate 18 03/27/25 19:43 Blood Pressure 123/40 L 03/27/25 19:43 Pulse Oximetry 97 03/27/25 19:43 <Jovon Can MD - Last Filed: 03/27/25 20:57> MDM - Arrhythmia/Palpitations MDM Narrative Medical decision making narrative: Patient presented to ED from GI suite status post colonoscopy, found to be in AFib with RVR. Patient's heart rate in the 140s upon arrival. She is asymptomatic at the time of my evaluation. She denies palpitations, dizziness, lightheadedness, chest pain, shortness of breath. History of AFib on Eliquis and metoprolol. Has held Eliquis for the past 3 days r/t procedure. EKG with afib rvr rates 130s, some nonspecific ST depression. Baseline troponin undetectable. Basic laboratory studies without leukocytosis or anemia. Stable electrolytes. Stable kidney function. Normal magnesium. BNP 901. Patient does not appear acutely fluid overloaded currently. CXR is clear. Patient has been off of her blood thinner for the past 3 days in preparation for her colonoscopy, however I have low suspicion for PE at this time. No hypoxia, shortness of breath, dizziness, lightheadedness, pain or swelling in legs. Patient will be restarted on her Eliquis at this time anyway. Patient had been given 10mg IV metoprolol, 25mg IV Cardizem, 2L of fluid prior to arrival to the ED. Anesthesiology had initially discussed the case with Dr. Mederos, Cardiology, who recommended 0.5mg Digoxin. Patient given digoxin in the ED w/o significant change in HR. Rates remain in the 130s-140s. BP stable. Re-discussed with Dr. Mederos, cardiology, advised to start cardizem gtt and admit. Will consult. Discussed case with Ashlyn Naranjo NP hospitalist, accepted patient for admission. Patient and family in agreement with plan and admission. She remains asymptomatic at this time. <Roxana Garcia PA-C - Last Filed: 03/27/25 17:34> Medical Records Attestation: I reviewed the patient's medical records. <Roxana Garcia PA-C - Last Filed: 03/27/25 17:34> Lab Data Attestation: I reviewed the patient's lab results. <LENORE Bradley Last Filed: 03/27/25 17:34> Result diagrams: 03/27/25 14:31 03/27/25 14:31 <LENORE Bradley Last Filed: 03/27/25 17:34> Labs: Lab Results 03/27/25 Range/Units 14:31 WBC 5.8 (4.5-10.0) K/mm3 RBC 3.83 L (4.2-5.4) M/mm3 Hgb 11.3 L (12.0-15.0) g/dL Hct 36.6 L (37.0-47.0) % MCV 95.6 (80-100) fl MCH 29.5 (26-34) pg MCHC 30.9 L (32-36) g/dl RDW 17.6 H (11.5-14.5) % Plt Count 189 (150-375) k/mm3 MPV 9.5 (7.4-10.4) fl Immature Gran % (Auto) 0.3 (0-0.5) % Neut % (Auto) 76.3 H (45.5-73.1) % Lymph % (Auto) 16.3 L (18.3-44.2) % [place] % (Auto) 5.0 (2.6-8.5) % Eos % (Auto) 1.6 (0-4.4) % Baso % (Auto) 0.5 (0.2-1.2) % Lymph # (Auto) 0.94 (0.9-3.2) K/mm3 [place] # (Auto) 0.3 (0.1-0.6) K/mm3 Eos # (Auto) 0.1 (0-0.3) K/mm3 Baso # (Auto) 0.0 (0.0-0.1) K/mm3 Abs Immat Gran (auto) 0.02 (0.00-0.031) K/mm3 Absolute Neuts (auto) 4.4 (1.3-6.7) K/mm3 Absolute Nucleated RBC 0.000 (0.0-0.012) K/mm3 Nucleated RBC % 0.0 (0.0-0.2) % PT 13.9 (11.1-14.7) Seconds INR 1.0 APTT 24.2 (22.3-36.8) Seconds Sodium 137 (137-145) mmol/L Potassium 4.2 (3.4-5.0) mmol/L Chloride 102 (98-107) mmol/L Carbon Dioxide 28 (22-30) mmol/L Anion Gap 7 (4-12) mmol/L BUN 7 D (7-17) mg/dL Creatinine 0.59 L (0.7-1.0) mg/dL Estim Creat Clear Calc Not Reportable Estimated GFR > 60 (59 - ) Glucose 136 H (65-110) mg/dL Calcium 8.7 (8.4-10.2) mg/dL Magnesium 2.0 (1.6-2.3) mg/dL Total Bilirubin 0.3 (0.2-1.3) mg/dL AST 47 H (14-36) U/L ALT 25 (6-35) U/L Alkaline Phosphatase 126 (38-126) U/L Troponin I < 0.012 (0.000-0.034) ng/mL NT-Pro-B Natriuret Pep 901 H (19.9-100) pg/mL Total Protein 8.0 (6.3-8.2) g/dL Albumin 4.2 (3.5-5.1) g/dL Lipase 115 (23-300) U/L <Roxana Garcia PA-C - Last Filed: 03/27/25 17:34> Lab Results 03/27/25 Range/Units 14:31 WBC 5.8 (4.5-10.0) K/mm3 RBC 3.83 L (4.2-5.4) M/mm3 Hgb 11.3 L (12.0-15.0) g/dL Hct 36.6 L (37.0-47.0) % MCV 95.6 (80-100) fl MCH 29.5 (26-34) pg MCHC 30.9 L (32-36) g/dl RDW 17.6 H (11.5-14.5) % Plt Count 189 (150-375) k/mm3 MPV 9.5 (7.4-10.4) fl Immature Gran % (Auto) 0.3 (0-0.5) % Neut % (Auto) 76.3 H (45.5-73.1) % Lymph % (Auto) 16.3 L (18.3-44.2) % [place] % (Auto) 5.0 (2.6-8.5) % Eos % (Auto) 1.6 (0-4.4) % Baso % (Auto) 0.5 (0.2-1.2) % Lymph # (Auto) 0.94 (0.9-3.2) K/mm3 [place] # (Auto) 0.3 (0.1-0.6) K/mm3 Eos # (Auto) 0.1 (0-0.3) K/mm3 Baso # (Auto) 0.0 (0.0-0.1) K/mm3 Abs Immat Gran (auto) 0.02 (0.00-0.031) K/mm3 Absolute Neuts (auto) 4.4 (1.3-6.7) K/mm3 Absolute Nucleated RBC 0.000 (0.0-0.012) K/mm3 Nucleated RBC % 0.0 (0.0-0.2) % PT 13.9 (11.1-14.7) Seconds INR 1.0 APTT 24.2 (22.3-36.8) Seconds Sodium 137 (137-145) mmol/L Potassium 4.2 (3.4-5.0) mmol/L Chloride 102 (98-107) mmol/L Carbon Dioxide 28 (22-30) mmol/L Anion Gap 7 (4-12) mmol/L BUN 7 D (7-17) mg/dL Creatinine 0.59 L (0.7-1.0) mg/dL Estim Creat Clear Calc Not Reportable Estimated GFR > 60 (59 - ) Glucose 136 H (65-110) mg/dL Calcium 8.7 (8.4-10.2) mg/dL Magnesium 2.0 (1.6-2.3) mg/dL Total Bilirubin 0.3 (0.2-1.3) mg/dL AST 47 H (14-36) U/L ALT 25 (6-35) U/L Alkaline Phosphatase 126 (38-126) U/L Troponin I < 0.012 (0.000-0.034) ng/mL NT-Pro-B Natriuret Pep 901 H (19.9-100) pg/mL Total Protein 8.0 (6.3-8.2) g/dL Albumin 4.2 (3.5-5.1) g/dL Lipase 115 (23-300) U/L <Jovon Can MD - Last Filed: 03/27/25 20:57> Imaging Data Attestation: I personally reviewed and interpreted this imaging study as follows: <Roxana Garcia PA-C - Last Filed: 03/27/25 17:34> Radiologist's impression: ITS Impressions Chest X-Ray 03/27/25 14:55 IMPRESSION: 1: NO ACUTE CARDIOPULMONARY DISEASE. <Roxana Garcia PA-C - Last Filed: 03/27/25 17:34> ECG Data EKG #1: Attestation: I personally reviewed and interpreted this ECG as follows: <Roxana Garcia PA-C - Last Filed: 03/27/25 17:34> ECG completion date: 03/27/25 <Roxana Garcia PA-C - Last Filed: 03/27/25 17:34> ECG completion time: 14:21 <Roxana Garcia PA-C - Last Filed: 03/27/25 17:34> EKG Interpretation: tachycardia (133), atrial fibrillation and non-specific ST changes <Roxana Garcia PA-C - Last Filed: 03/27/25 17:34> Discharge Plan Discharge Clinical Impression: Atrial fibrillation with rapid ventricular response <Roxana Garcia PA-C - Last Filed: 03/27/25 17:34> Patient Disposition: Still a Patient <Roxana Garcia PA-C - Last Filed: 03/27/25 17:34> Condition: Stable <Roxana Garcia PA-C - Last Filed: 03/27/25 17:34>
[2025-03-27 15:05] LABS: Troponin I < 0.012 ng/mL (0.000-0.034)
--- OUTSIDE RECORDS SUMMARY | 2025-03-27 15:24 | XMS_ITS | Clinical Summary ---
Author Organization [facility] Address [address] [place] [address] Care Team Providers Care Learning Operations Specialist Name Role Phone Nicolasa Jiang MD Primary Care Provider [phone] Source Comments [facility],non-owned Affiliates and Associated Physician Practices is amultiple site organization consisting of ambulatory clinics and hospital sitesin [place], [place], [place] and [place]. This disclosure is being madepursuant to the Care Everywhere program and may not contain all information available regarding this patient. Last updated 18.[facility] Allergies No known active allergies Medications * [...] by mouth once daily Active HYDROcodone-avila taminophen (Perry) 5-325 MG tablet Take 1 (one) tablet [...] Orders Only [facility] [address] [place] [address] Ben Cuevas RN Primary biliary cholangitis from Last 3 Months Immunizations Immunization Administration Dates Next Due CovBacula primary monoval ent 12+ yr 0.3mL Purple [...] on file Legal Sex Female 5:20 PM ELECTRICAL INTERN Gender Identity Not on file Sexual [...] each visit Medical Devices Implanted Type Area Physician Coder Device Identifier Shelf Expiration Date Model / Serial / Lot Nail Im 10mm 18cm Trgn Intrtn Intrtroch - Sn/A Implanted:Qty: 1 on 08/20/2022 by Jeremiah Wilkerson MD at [facility] Left: Hip [employer] 04/18/2032 [id number] / N/A / [id number] Kit Screw 95mm 11.5mm 7mm Intrtn Troch - Sn/A Implanted:Qty: 1 on 08/20/2022 by Jeremiah Wilkerson MD at [facility] Left: Hip [employer] 04/15/2032 [id number] / N/A / [id number] Screw 5mm 32.5mm Lopro Intnl Hex Fem - Sn/A Implanted:Qty: 1 on 08/20/2022 [facility] Left: Hip [employer] 06/19/2031 [id number] / N/A / [id number] Procedures Procedure Name Priority Date/Time Associated Diagnosis Comments DEXA BONE DENSITY AXIAL SKELETON Routine 10/24/2023 9:00 AM ELECTRICAL INTERN Research study patient COMPREHENSIVE METABOLIC PANEL Routine 07/24/2023 9:40 AM CDT Primary biliary cholangitis NAFLD (nonalcoholic fatty liver disease) Age-related osteoporosis without current pathological fracture Hepatic fibrosis, stage 3 HEMOGLOBIN A1C Routine 12/11/2019 8:07 AM ELECTRICAL INTERN Controlled type 2 diabetes mellitus without complication, with long-term current use of insulin HEPATITIS C ANTIBODY Routine 04/18/2017 12:29 PM CDT from Last 3 Months or Most Recently Relevant to Health Maintenance Results * BONE DENSITY AXIAL SKELETON(1OR MORE SITES)[id number] (10/24/2023 9:00 AM ELECTRICAL INTERN) Anatomical Region Laterality Modality Other 10/24/2023 10:0 6 AM ELECTRICAL INTERN Narrative 10/24/2023 10:32 AM ELECTRICAL INTERN PROCEDURE: DEXA BONE DENSITY AXIAL SKELETON DATE/TIME [...] below > Dictated by Elaine Tijerina MD (Slate Splitter) 10/24/2023 10:06 AM Herrera Sams DO have [...] below > Dictated by Elaine Tijerina MD (Slate Splitter) 10/24/2023 10:06AM Herrera Sams DO have personally reviewed and interpreted this examination/study. > Interpreting Provider: Herrera Whitfield DO on 10/24/2023 10:32 AM Mo Crespo MD DEXA ORDERABLES Final Result * (ABNORMAL) COMPREHENSIVE METABOLIC PANEL (07/24/2023 9:40 AM [facility]) BUN 12 7 - 26 mg/dL 07/24/2023 10:28 AM [facility] Creatinine 0.55(L) 0.56 - 0.96 mg/dL 07/24/2023 10:28 AM [facility] Sodium 134(L) 136 - 145 mmol/L 07/24/2023 10:28 AM [facility] Potassium 3.9 3.5 - 4.5 mmol/L 07/24/2023 10:28 AM [facility] Chloride 102 98 - 107 mmol/L 07/24/2023 10:28 AM [facility] CO2 25 22 - 29 mmol/L 07/24/2023 10:28 AM [facility] Glucose 108 70 - 115 mg/dL 07/24/2023 10:28 AM [facility] Calcium 8.7 8.4 - 10.2 mg/dL 07/24/2023 10:28 AM [facility] Protein Total 7.2 6.0 - 8.3 g/dL 07/24/2023 10:28 AM [facility] Albumin 3.5 3.4 - 5.0 g/dL 07/24/2023 10:28 AM [facility] Bilirubin Total 0.4 0.2 - 1.2 mg/dL 07/24/2023 10:28 AM [facility] Alkaline Phosphatase 143 40 - 150 U/L 07/24/2023 10:28 AM [facility] ALT 19 5 - 55 U/L 07/24/2023 10:28 AM [facility] AST 28 5 - 34 U/L 07/24/2023 10:28 AM [facility] Anion Gap 11 8 - 18 07/24/2023 10:28 AM [facility] BUN/Creatinine Ratio 22 7 - 23 07/24/2023 10:28 AM CDT [facility] Osmolality Calculated 278 270 - 300 mOsm/kg 07/24/2023 10:28 AM T [facility] Albumin/Globulin Ratio 0.9(L) 1.1 - 2.3 07/24/2023 10:28 AM CDT [facility] eGFR by CKD-EPI >90 >=90 mL/min/1.7 3 m2 07/24/2023 10:28 AM T [facility] Blood BLOOD SPECIMEN / Unknown Lab Venipuncture / Unknown 07/24/2023 9:40 AM CDT 07/24/2023 9:55 AM CDT us Jayde Skaggs MD LAB - CHEMISTRY ORDERABLES Fi nal Result Performing Organization Address City/[facility]/ZIP Co de Phone Number [facility] [address] [place] [phone], [facility] [phone] * (ABNORMAL) HEMOGLOBIN A1C (12/11/2019 8:07 AM ELECTRICAL INTERN) Hemoglobin A1c 9.9(H) 4.8 - 5.6 % [facility] INSURANCE BILL Comment: . Prediabetes: 5.7 - 6.4 Diabetes: >6.4 Glycemic control for adults with diabetes: <7.0 FASTING Blood BLOOD SPECIMEN / Unknown 12/11/2019 8:07 AM ELECTRICAL INTERN 12/11/2019 Narrative [facility] INSURANCE BILL - 12/12/2019 7:08 AM ELECTRICAL INTERN A courtesy copy of this report has been sent to [phone] Resulting Agency Comment Lab Testing performed at: [facility] [address] [phone] us Trip Patel MD LAB - CHEMISTRY ORDERAB LES Final Result [facility] INSURANCE BILL [address] [place] [address] * HEPATITIS C ANTIBODY (04/18/2017 12:29 PM [...] Final Result [facility] [address] [phone] from Last 3 Months or Most Recently Relevant to Health Maintenance Insurance MEDICARE [facility] MEDICARE [facility] MEDICARE [facility] Advance Directives * Full Code (Latest Code Status on File) Date Activated Date Inactivated Comments 08/20/2022 2:02 PM 08/25/2022 3:30 PM * Full Code Date Activated Date Inactivated Comments 08/17/2022 11:56 PM 08/20/2022 2:02 PM Care Teams Learning Operations Specialist Relationship Specialty Start Date End Date Nicolasa Jiang MD [address] [place] [id number] PCP - General 07/10/18
--- OUTSIDE RECORDS SUMMARY | 2025-03-27 15:24 | XMS_ITS | Encounter Summary ---
Author Organization [facility] Address [address] [place] [address] Care Team Providers Care Senior Hardware Engineer Name Role Phone Nicolasa Jiang MD Unavailable Prinec Webster MD Primary Care Provider [phone] Encounter Details Date Type Department Care Team (Late st Contact Info) Description 03/27/2025 Telephone [facility] Cardiology [address] [place] [address] Sivan Storey MD [address] [place] [id number] Social History Tobacco Use Types Packs/Day [...] on file Legal Sex Female 1:40 AM BLOCK SORTER Gender Identity Not on file Sexual Orientation Not on file documented as of this encounter Miscellaneous Notes * Telephone Encounter - Elizabeth Bolton RN - 03/27/2025 1:46 PM CDT Forwarded message on to providers covering [facility]- and Dr. Mederos. * Telephone Encounter - Treva Patel - 03/27/2025 1:33 PM CDT Meg w/ [facility] called stating that the pt just had a Colonoscopy and is in post op currently. While in post op the pts heart rate has been going up. They have given her 10 mg total of IV metoprolol and 25 mg total of IV diltiazem. The animal treatment investigator Dr. Jimenez is concerned and would like to speak to either LATA or his RN. Please advise Thank you Contact: Contact: ( Dr. Jimenez's extension) documented in this encounter Plan of Treatment Not on file documented as of this encounter Visit Diagnoses Not on filedocumented in this encounter Care Teams Senior Hardware Engineer Relationship Specialty Start Date End Date Prince Webster MD [address] [place] [address] PCP - General Family Medicine 01/09/23 Nicolasa Jiang MD [address] [place] [address] Family Medicine 07/19/21 documented as of this encounter
--- OUTSIDE RECORDS SUMMARY | 2025-03-27 15:24 | XMS_ITS | Clinical Summary ---
Author Organization [facility] [place] [address] [facility] [address] Address [address] [place] [address] Care Team Providers Care Plate Painter Apprentice Name Role Phone Nicolasa Jiang MD Unavailable Prince Webster MD Primary Care Provider [phone] Allergies No known active allergies Medications albuterol [...] Type Department Care Team Description 03/27/2025 Telephone [facility] Cardiology [address] [place] [address] Sivan Storey MD 01/06/2025 10:45 AM EPIC APPLICATION COORDINATOR Office Visit [facility] Cardiology [address] [place] [address] Sivan Storey MD Paroxysmal atrial fibrillation (HCC) [...] on file Legal Sex Female 1:40 AM EPIC APPLICATION COORDINATOR Gender Identity Not on file Sexual Orientation Not on file Obstetrics History Last Filed Vital Signs Vital Sign Reading Time Taken Comments Blood Pressure 92/50 01/06/2025 10:43 AM EPIC APPLICATION COORDINATOR Pulse 56 01/06/2025 10:43 AM EPIC APPLICATION COORDINATOR Temperature 36.8 C (98.2 F) 05/22/2024 11:03 AM CDT Respiratory Rate 16 05/22/2024 11:0 5 AM CDT Oxygen Saturation 99% 01/06/2025 10: 43 AM EPIC APPLICATION COORDINATOR Inhaled Oxygen Concentration - - Weight 69.8 kg (153 lb 14.4 oz) 025 10:43 AM EPIC APPLICATION COORDINATOR Height 157.5 cm (5' 2 ) 01/06/2025 10:4 3 AM EPIC APPLICATION COORDINATOR Body Mass Index 28.15 01/06/2025 10:43 AM EPIC APPLICATION COORDINATOR Plan of Treatment Health Maintenance Due Date [...] Comments ELECTROCARDIOGRAM REPORT Routine 025 2:41 PM EPIC APPLICATION COORDINATOR Paroxysmal atrial fibrillation (HCC) POCT LIPID PANEL Routine 01/06/2025 12:0 4 PM EPIC APPLICATION COORDINATOR Mixed hyperlipidemia from Last 3 Months Results * Electrocardiogram Report (01/06/2025 2:41 PM EPIC APPLICATION COORDINATOR) Sivan Storey MD ECG ORDERABLES Caterina l Result * POCT lipid panel (01/06/2025 12:04 PM EPIC APPLICATION COORDINATOR) Cholesterol, POC 124 mg/dL Comment:GLU = 105 HDL, POC 38 mg/dL Triglycerides, POC 147 mg/dL LDL Cholesterol POC 56 mg/dL Chol/HDL Ratio, POC 1.5 Non-HDL Cholesterol, POC 86 mg/dL Cholesterol Total, POC 124 mg/dL Capillary blood 01/06/2025 1 2:04 PM EPIC APPLICATION COORDINATOR Sivan Storey MD POINT OF CARE TEST O RDERABLES Final Result from Last 3 Months Insurance MEDICARE [facility] MEDICARE [facility]ICARE [facility] MEDICARE [facility] Care Teams Plate Painter Apprentice Relationship Specialty Start Date End Date Prince Webster MD [address] [place] [address] PCP - General Family Medicine 01/09/23 Nicolasa Jiang MD [address] [place] [address] Family Medicine 07/19/21
--- OUTSIDE RECORDS SUMMARY | 2025-03-27 15:24 | XMS_ITS | Referral Summary ---
Author Organization [facility] [address] [place] [address] [address] [facility] [address] [place] [address] Care Team Providers Care Resident Director Name Role Phone Nicolasa Jiang MD Unavailable Prince Webster MD Primary Care Provider [phone] Encounters Date Type Department Care Team Description 03/27/[address] [facility] Medical Group Cardiology [address] [place] [address] 162 [address] [place] [address] Sivan Storey MD 01/06/2025 10:45 AM [employer] SALES REPRESENTATIVE Office Visit [facility] Medical [facility] Cardiology [address] [place] [address] 162 [address] [place] [address] Sivan Storey MD Paroxysmal atrial [...] on file Legal Sex Female 1:40 AM [employer] SALES REPRESENTATIVE Gender Identity Not on file Sexual Orientation Not on file Last Filed Vital Signs Vital Sign Reading Time Taken Comments Blood Pressure 92/50 01/06/2025 10:43 AM [employer] SALES REPRESENTATIVE Pulse 56 01/06/2025 10:43 AM [employer] SALES REPRESENTATIVE Temperature 36.8 C (98.2 F) 05/22/2024 11:03 AM CDT Respiratory Rate 16 05/22/2024 11:0 5 AM CDT Oxygen Saturation 99% 01/06/2025 10: 43 AM [employer] SALES REPRESENTATIVE Inhaled Oxygen Concentration - - Weight 69.8 kg (153 lb 14.4 oz) 025 10:43 AM [employer] SALES REPRESENTATIVE Height 157.5 cm (5' 2 ) 01/06/2025 10:4 3 AM [employer] SALES REPRESENTATIVE Body Mass Index 28.15 01/06/2025 10:43 AM [employer] SALES REPRESENTATIVE Plan of Treatment Not on file Procedures Procedure Name Priority Date/Time Associated Diagnosis Comments ELECTROCARDIOGRAM REPORT Routine 025 2:41 PM [employer] SALES REPRESENTATIVE Paroxysmal atrial fibrillation (HCC) POCT LIPID PANEL Routine 01/06/2025 12:0 4 PM [employer] SALES REPRESENTATIVE Mixed hyperlipidemia from Last 3 Months Results * Electrocardiogram Report (01/06/2025 2:41 PM [employer] SALES REPRESENTATIVE) us Jenifereejun Storey MD ECG ORDERABLES Caterina l Result * POCT lipid panel (01/06/2025 12:04 PM [employer] SALES REPRESENTATIVE) Cholesterol, POC 124 mg/dL Comment:GLU = 105 HDL, POC 38 mg/dL Triglycerides, POC 147 mg/dL LDL Cholesterol POC 56 mg/dL Chol/HDL Ratio, POC 1.5 Non-HDL Cholesterol, POC 86 mg/dL Cholesterol Total, POC 124 mg/dL Capillary blood 01/06/2025 1 2:04 PM [employer] SALES REPRESENTATIVE Sivan Storey MD POINT OF CARE TEST O RDERABLES Final Result from Last 3 Months Insurance MEDICARE [facility]ICARE [facility] MEDICARE [facility] Care Teams Resident Director Relationship Specialty Start Date End Date Prince Webster MD [address] [place] [address] PCP - General Family Medicine 01/09/23 Nicolasa Jiang MD [address] [place] [address] Family Medicine 07/19/21
--- OUTSIDE RECORDS SUMMARY | 2025-03-27 15:24 | XMS_ITS | Clinical Summary ---
Author Organization [facility] Address [address] [place] [id number] Phone Care Team Providers Care Qa Automation Engineer Name Role Phone Unavailable Primary Care Provider [...] Influenza Vaccine (Season Ended) 2025 Insurance MEDICARE [facility]
--- OUTSIDE RECORDS SUMMARY | 2025-03-27 15:24 | XMS_ITS | Clinical Summary ---
Author Organization [facility] Address [address], [facility] [address] [place] [address] Phone Care Team Providers Care Wool Shearing Supervisor Name Role Phone Lee Jiang MD Primary Care Provider [phone] Allergies No known active allergies Medications insulin [...] on file Legal Sex Female 9:25 AM [employer]UR[employer] SALES PERSON Gender Identity Not on file Sexual Orientation [...] Recently Relevant to Health Maintenance Insurance MEDICARE [facility] Care Teams Wool Shearing Supervisor Relationship Specialty Start Date End Date Lee Jiang MD [address] [place] [address] PCP - General Family Medicine 11/09/16
[2025-03-27 15:39] LABS: NT Pro B Type Natriuretic Pept 901 pg/mL (19.9-100)
[2025-03-27] MEDS: dilTIAZem 100 MG/100 ML 100 MG/100 ML BAG IV CONT ×2 (16:38→23:40)
--- NOTE | 2025-03-27 16:57 | ECG_ITS ---
Test Date: 2025-03-27 17:16:50 Measurements Intervals [place] Rate: 116 P: 0 ND: 0 QRS: -22 QRSD: 94 T: 37 QT: 316 QTc: 440 Interpretive Statements ATRIAL FLUTTER/TACHYCARDIA WITH RAPID VENTRICULAR RESPONSE BORDERLINE LEFT AXIS DEVIATION [QRS AXIS < -20] NON SPECIFIC ST-T WAVE CHNAGES Electronically Signed On 03-28-2025 19:01:06 CDT by Char Mederos
[2025-03-27 17:45] LABS: Troponin I < 0.012 ng/mL (0.000-0.034)
--- NOTE | 2025-03-27 18:17 | P.HP_ITS ---
H&P: HPI History of Present Illness Date/Time: 03/27/25 18:17 Chief Complaint: Atrial Fibrillation Narrative: 64 y/o F with PMH of atrial fibrillation, peripheral neuropathy, liver disease, COPD, hypertension, hyperlipidemia, hypothyroidism, and diabetes presents here with atrial fibrillation. The patient presents here from [facility] for further evaluation of AFib. She underwent a routine colonoscopy. 6 polyps were removed. Postprocedure the patient was found to be in AFib RVR with a rate in the 130s and 140s. She has a known history of AFib. She is on metoprolol 100 mg daily and Eliquis. GI lab attempted to convert/rate control the patient's heart rate prior to arrival. She was given 2 L of fluid, 25 mg of diltiazem IV, 10 mg of metoprolol IV with minimal effect on the patient's heart rate. The patient remains asymptomatic and denies shortness of breath, dizziness, lightheadedness, syncope, nausea, vomiting, chest pain, fever, chills, or weakness. She reports she has had variable heart rates at home - has fluxed between 67-145. Has been like this for the past 2-3 years. Sees Ariela MART for her cardiac care and he is aware of these readings. Initial VS at presentation: 98.1? F, HR 141, R 28, 153/89, and 97% on RA. ED workup showed: No leukocytosis, hemoglobin 11.3 (previously 8.4 on 02/18/2025), normal coags, creatinine 0.59 and GFR >60, initial troponin negative x2, BNP 901. CXR showed no acute abnormality. EKG showed atrial flutter RVR, rate 133, moderate ST depression (awaiting formal read). Review of Systems Review of Systems: All systems reviewed & are unremarkable except as noted in HPI and below [facility] Past Medical History Medical History (Updated 03/27/25 @ 18:33 by Ashlyn Naranjo, ENRIQUE) Iron deficiency anemia Vitamin D deficiency Vitamin B12 deficiency Atrial fibrillation History of proteinuria syndrome associated with diabetes. doing well. Syncope considered vasovagal. Pelvic stress fracture Proteinuria Broken hip Right radial fracture Peripheral neuropathy Depression Liver disease Primary biliary cholangitis Chronic obstructive pulmonary disease, unspecified ct 5.20.21 mild emphysema Degeneration of lumbar or lumbosacral intervertebral disc Essential (primary) hypertension Hypothyroidism, unspecified Mixed hyperlipidemia Trigger finger of left thumb Type 2 diabetes mellitus with hyperglycemia Surgical History Surgical History (Updated 03/27/25 @ 18:26 by Ashlyn Naranjo APRN) History of tubal ligation H/O oral surgery H/O shoulder surgery bilateral Total knee replacement status 2009, 2013, bilateral Family History Family History Mother Diabetes mellitus Hypertension Family history of chronic obstructive pulmonary disease Sibling Family history of malignant neoplasm of breast Father Family history of sudden Social History Social History Smoking packs per day: 1 Smoking cigarettes per day: 20.0 Years smoked: 30 Smoking pack-years: 30.00 Smoking status: Current every day smoker Tobacco type: cigarettes Second hand tobacco smoke exposure: Yes Alcohol intake: never Substance use: never Substance use type: does not use Do You Feel Safe in your Home?: Yes Lack of Transportation: YES Lack of Food: Never True Current Housing: I Have Housing Concerned About Future Housing: No Difficulty Paying Gas/Electric Bills: No Difficulty Paying for Meds: No Currently Unemployed: No Education: High School Diploma/GED Difficulty w/ Childcare or Family Care: No Living arrangements: alone Spiritual care concerns: No Meds Home Medications and Allergies Home Medications ?Medication ?Instructions ?Recorded ?Confirmed ?Type fexofenadine 180 mg tablet 180 mg PO DAILY 02/12/20 03/27/25 History (Ling Allergy) albuterol sulfate 90 mcg/actuation 2 inh inhalation Q6H PRN shortness 12/14/23 03/27/25 Rx breath activated powder inhaler of breath or wheezing #1 ea mecobalamin (vitamin B12) 1,000 1,000 mcg PO DAILY #90 tabs 12/28/23 03/27/25 Rx mcg chewable tablet clotrimazole-betamethasone 1 1 applic topical Q12H PRN rash 06/12/24 03/27/25 History %-0.05 % topical cream lisinopril 20 1 tablet PO DAILY 06/12/24 03/27/25 History mg-hydrochlorothiazide 12.5 mg tablet ursodiol 300 mg capsule 300 mg PO DAILY 06/12/24 03/27/25 History blood sugar diagnostic (OneTouch #50 ea 08/01/24 03/27/25 Rx Verio test strips) blood-glucose meter (OneTouch #1 ea 08/01/24 03/27/25 Rx Verio Flex Meter) lancets 33 gauge (OneTouch Tigist #100 ea 08/01/24 03/27/25 Rx Plus Lancet) levothyroxine 50 mcg tablet See Rx Instructions .Route 09/13/24 03/27/25 Rx .COMPLEX #90 tabs simvastatin 20 mg tablet See Rx Instructions .Route 11/06/24 03/27/25 Rx .COMPLEX #90 tabs Farxiga 10 mg tablet 10 mg PO QAM #90 tabs 11/07/24 03/27/25 Rx (dapagliflozin propanediol) metoprolol succinate 100 mg 100 mg PO DAILY #90 tabs 12/09/24 03/27/25 Rx tablet,extended release 24 hr apixaban 5 mg tablet (Eliquis) See Rx Instructions .Route 12/12/24 03/27/25 Rx .COMPLEX #180 tabs sertraline 100 mg tablet 100 mg PO DAILY #90 tabs 01/13/25 03/27/25 Rx sitagliptin phosphate 50 mg tablet 50 mg PO DAILY #90 tabs 02/05/25 03/27/25 Rx (Januvia) ferrous sulfate 325 mg (65 mg 325 mg PO DAILY #90 tabs 02/19/25 03/27/25 Rx iron) tablet metformin 1,000 mg tablet 1,000 mg PO BIDWMEAL #180 tabs 03/07/25 03/27/25 Rx trazodone 50 mg tablet See Rx Instructions .Route 03/14/25 03/27/25 Rx .COMPLEX #180 tabs Allergies Allergy/AdvReac Type Severity Reaction Status Date / Time amoxicillin Allergy Unknown Unknown Verified 03/27/25 09:46 Vital Signs Vital Signs - 24 hr 03/27/25 14:26 03/27/25 14:30 03/27/25 14:35 Temperature 98.1 F Pulse Rate 141 H 142 H 142 H Respiratory Rate 28 H 20 20 Blood Pressure 153/89 H Pulse Oximetry 97 98 100 03/27/25 14:38 03/27/25 14:45 03/27/25 15:06 Temperature Pulse Rate 142 H 138 H 134 H Respiratory Rate 27 H 21 H Blood Pressure Pulse Oximetry 98 99 03/27/25 15:15 03/27/25 15:16 03/27/25 15:30 Temperature Pulse Rate 130 H 147 H 122 H Respiratory Rate 40 H 23 H 18 Blood Pressure Pulse Oximetry 99 98 95 03/27/25 15:31 03/27/25 15:39 03/27/25 15:40 Temperature Pulse Rate 125 H 134 H 134 H Respiratory Rate 20 21 H 21 H Blood Pressure 136/74 136/74 Pulse Oximetry 98 96 98 03/27/25 15:52 03/27/25 16:00 03/27/25 16:20 Temperature Pulse Rate 125 H 126 H 126 H Respiratory Rate 33 H 22 H 24 H Blood Pressure 165/94 H Pulse Oximetry 97 93 97 03/27/25 16:38 03/27/25 16:41 03/27/25 16:45 Temperature Pulse Rate 122 H 141 H 151 H Respiratory Rate 25 H 17 Blood Pressure 165/94 H Pulse Oximetry 97 98 03/27/25 16:54 03/27/25 17:00 03/27/25 17:01 Temperature Pulse Rate 129 H 123 H 130 H Respiratory Rate 24 H 24 H 14 Blood Pressure 151/90 H 157/99 H Pulse Oximetry 86 L 80 L 92 03/27/25 17:15 03/27/25 17:16 03/27/25 17:30 Temperature Pulse Rate 118 H 138 H 116 H Respiratory Rate 20 17 20 Blood Pressure 165/85 H Pulse Oximetry 95 97 95 03/27/25 17:31 03/27/25 17:39 03/27/25 17:57 Temperature Pulse Rate 128 H 132 H 131 H Respiratory Rate 19 Blood Pressure 156/99 H 156/99 H 151/97 H Pulse Oximetry 94 Exam Const: General: comfortable and no acute distress Other: , female, nontoxic appearance HENMT: Face/Nose/Sinus: Normal nares present Mouth: Yes moist mucous membranes Eyes: General: appearance normal, both eyes and all related structures Sclera: sclerae normal Pupils: Equal, round and reactive pupils present EOM: EOMs intact bilaterally Resp: Effort & Inspection: normal respiratory effort Auscultation: clear to auscultation bilaterally Cardio: Rate: tachycardic Rhythm: abnormal rhythm (Consistent with atrial flutter/atrial fib) Other: No murmur rub. GI: Other: Abdomen soft, nondistended, nontender. Normoactive bowel sounds in all q uadrants. Skin: General skin exam: normal color and no rashes or lesions noted Wounds: no wounds Neuro: Speech: normal speech Motor exam (neuro): 5/5 motor strength present throughout Sensory Exam: normal sensation Other: A&O x4 Extrem: General: normal to inspection Psych: Mental Status: mental status grossly normal Affect: normal affect Other: Good insight and judgment, pleasant H&P: Results Labs Labs: Short CBC 03/27/25 Range/Units 14:31 WBC 5.8 (4.5-10.0) K/mm3 Hgb 11.3 L (12.0-15.0) g/dL Hct 36.6 L (37.0-47.0) % Plt Count 189 (150-375) k/mm3 BMP 03/27/25 14:31 Sodium 137 Potassium 4.2 Chloride 102 Carbon Dioxide 28 BUN 7 D Creatinine 0.59 L Glucose 136 H Calcium 8.7 Cardiac Enzymes 03/27/25 03/27/25 Range/Units 14:31 17:15 Troponin I < 0.012 < 0.012 (0.000-0.034) ng/mL Liver Function 03/27/25 Range/Units 14:31 Total Bilirubin 0.3 (0.2-1.3) mg/dL AST 47 H (14-36) U/L ALT 25 (6-35) U/L Alkaline Phosphatase 126 (38-126) U/L Albumin 4.2 (3.5-5.1) g/dL Assessment and Plan Assessment and plan (1) Atrial fibrillation with rapid ventricular response: Code(s): I48.91 - Unspecified atrial fibrillation Status: Acute Assessment and Plan: History of AFib. Recurrent post colonoscopy. No response in HR with 2 L of fluid, 10 mg IV of metoprolol, 25 mg IV of diltiazem. Cardiology consulted. Cardiology recommended 1 time dose of digoxin 500 mg IV, no response. -> started on diltiazem gtt. currently at 15 mg/hr w/10 IVP. Hold simvastatin. Eliquis held 3 days prior to colonoscopy. Recommended to hold 3 days post colonoscopy, 6 polyps removed (3 hot snare/3 cold snare). Will continue to hold at this time. Hold metoprolol ER 100 mg daily. TSH within normal limits in September of 2024. Telemetry monitoring. (2) Anemia: Qualifiers: Anemia type: unspecified type Qualified Code(s): D64.9 - Anemia, unspecified Code(s): D64.9 - Anemia, unspecified Status: Chronic Assessment and Plan: Chronic, history of iron deficiency anemia. Hemoglobin 11.3, previously 8.4 on 02/18/2025. Monitor. (3) Type 2 diabetes, controlled, with peripheral neuropathy: Code(s): E11.42 - Type 2 diabetes mellitus with diabetic polyneuropathy Status: Chronic Assessment and Plan: - hypoglycemia protocol - POC blood glucose ACHS - home medication: hold Farixga, metformin, Januvia while inpatient - correct regimen ordered - moderate dose TIDWM and HS, based off BMI (28) - A1C 5.9% on 02/18/2025 (4) Essential (primary) hypertension: Code(s): I10 - Essential (primary) hypertension Status: Acute Assessment and Plan: - chronic, currently 151/97 - continue home medications: Lisinopril-hydrochlorothiazide - monitor Plan Diet: Heart healthy GI Prophylaxis: Not currently indicated DVT Prophylaxis: Eliquis b.i.d. IV fluids: None Lines/Tubes: Peripheral IV Code Status: Full code Quality VTE Prophylaxis VTE prophylaxis: pharmacologic ordered Hospitalist MIPS Advance Care Plan I have confirmed that the patient's Advanced Care Plan is present, code status is documented, or surrogate decision maker is listed in patient medical record.: Yes Medication Reconciliation I have utilized all available resources to obtain, update and review the patients current medications (includes all prescriptions, OTC, herbals, cannabis, and nutritional supplements).: Yes
[2025-03-27 18:33] LABS: Glucose Point of Care 316 mg/dl (65-105)
[2025-03-27] MEDS: dilTIAZem HCl INJ 25 MG/5 ML VIAL 10 MG IV PUSH (18:57)
[2025-03-27 20:37] LABS: Troponin I < 0.012 ng/mL (0.000-0.034)
[2025-03-27 20:37] LABS: Glucose Point of Care 339 mg/dl (65-105)
[2025-03-27] MEDS: traZODone HCL 50 MG TABLET PO (20:50)
[2025-03-27] MEDS: INSULIN ASPART (*BKC) 100 UNITS/ML SUB-Q (20:50)
[2025-03-27] MEDS: ursodioL 300 MG CAPSULE PO (20:51)
--- NOTE | 2025-03-27 21:06 | PC.NURSE ---
Pt refused eliquis this sift. Pt educated on need for eliquis and exhibited good understanding, however stated she was told by her GI Dr to hold eliquis for 3 days, due to removal of polyps on ths date.
[2025-03-28] VITALS (24 sets, daily range): BP systolic 106–136; BP diastolic 42–98; PULSE 73–139; RESP 16–20; TEMP 36.6–36.9; O2SAT 95–99
--- NOTE | 2025-03-28 | ECHO_ITS ---
Patient Info Name: Bel Gomes Age: 64 years : 1960 Gender: Female Ht: 62 in Wt: 156 lbs BSA: 1.78 m2 HR: 77 bpm BP: 128 / 92 mmHg Heart Rhythm: Atrial Fibrillation Technical Quality: Good Exam Date: 03/28/2025 2:46 PM Exam Location: Echo Lab Patient Status: Inpatient Admit Date: 03/27/2025 Staff Ordering Physician: Jazmine Durham MD Log Marker: Chanda Reyes RDCS Attending Provider: Jazmine Durham MD Exam Type: CA echo doppler color flow Study Info Indications - Afib Complete two-dimensional, color flow and Doppler transthoracic echocardiogram is performed. Summary 1. Complete two-dimensional, color flow and Doppler transthoracic echocardiogram is performed. 2. Left ventricular systolic function is normal, estimated at 60-65%. 3. There is mildly increased left ventricular wall thickness. 4. The left ventricular diastolic function is indeterminate. 5. Right ventricular chamber dimension is normal. 6. Right ventricular systolic function is normal. 7. Left atrial chamber dimension is enlarged. Left Ventricle Left ventricular chamber dimension is normal. Left ventricular systolic function is normal, estimated at 60-65%. There is mildly increased left ventricular wall thickness. The left ventricular diastolic function is indeterminate. Right Ventricle Right ventricular chamber dimension is normal. Right ventricular systolic function is normal. Left Atria Left atrial chamber dimension is enlarged. Right Atria Right atrial chamber dimension is normal. Aortic Valve The aortic valve is trileaflet. There is no aortic valve stenosis with a peak velocity of 167 cm/s, mean gradient of 5 mmHg, and aortic valve area of 2.2 cm2. There is no aortic valve regurgitation. Pulmonic Valve There is mild pulmonic regurgitation. Mitral Valve The mitral valve has thickened leaflets. There is no mitral valve stenosis. There is trace mitral valve regurgitation. Tricuspid Valve There is mild tricuspid valve regurgitation. No pulmonary hypertension, estimated pulmonary arterial systolic pressure is 24 mmHg. Pericardium/Pleural There is no pericardial effusion. Left Ventricular Outflow Tract Name Value Normal LVOT 2D LVOT Diameter 2.0 cm LVOT Doppler LVOT Peak Gradient 6 mmHg LVOT Mean Gradient 3 mmHg LVOT VTI 22 cm LVOT VTI/AV VTI Ratio 0.7 LVOT Stroke Volume 69 ml LVOT CO 5.1 l/min LVOT CI 2.8 l/min/m2 Pulmonic Valve Name Value Normal RVOT Doppler RVOT Peak Gradient 3 mmHg PV Doppler PV Peak Gradient 6 mmHg Mitral Valve Name Value Normal MV Doppler MV Decel [place] 387 cm/s2 MV PHT 59 ms MV Area (PHT) 3.7 cm2 4.0-5.0 MV Diastolic Function MV E Peak Velocity 79 cm/s MV A Peak Velocity 1 cm/s MV E/A 83.0 MV Decel Time 204 ms MV Annular TDI MV E/e' (Septal) 10.7 <=8.0 MV E/e' (Lateral) 9.9 <=8.0 MV E/e' (Average) 10.3 Tricuspid Valve Name Value Normal TV Regurgitation Doppler TR Peak Velocity 239 cm/s TR Peak Gradient 19 mmHg Estimated PAP/RSVP PA Systolic Pressure 24 mmHg <36 Aortic Valve Name Value Normal AV Doppler AV Peak Velocity 167 cm/s AV Peak Gradient 7 mmHg AV Mean Gradient 5 mmHg AV VTI 31 cm AV Area (Cont Eq VTI) 2.2 cm2 >=3.0 AV Area (Cont Eq Ian) 2.4 cm2 AV Regurgitation 2D LVOT Area 3.1 cm2 Ventricles Name Value Normal LV Dimensions 2D/MM IVS Diastolic Thickness (2D) 1.0 cm 0.6-1.0 LVID Diastole (2D) 4.1 cm 3.8-5.2 LVIW Diastolic Thickness (2D) 1.0 cm 0.6-0.9 LVID Systole (2D) 2.7 cm 2.2-3.5 LVOT Diameter 2.0 cm LV Mass (2D Cubed) 132.69 g 67.00-162.00 LV Mass Index (2D Cubed) 74 g/m2 43-95 Relative Wall Thickness (2D) 0.51 LV Fractional Shortening/Ejection Fraction 2D/MM LV Fractional Shortening (2D) 34 % 27-45 LV EF (2D Teicholz) 63 % 54-74 LV Diastolic Volume (4C MOD) 101 ml LV EF (4C MOD) 64 % LV Diastolic Volume (2C MOD) 96 ml LV EF (2C MOD) 68 % LV Diastolic Volume (BP MOD) 98 ml 46-106 LV Diastolic Volume Index (BP MOD) 55 ml/m2 29-61 LV Systolic Volume (BP MOD) 34 ml 14-42 LV Systolic Volume Index (BP MOD) 19 ml/m2 8-24 LV EF (BP MOD) 65 % 54-74 LV Diastolic Length (4C) 6.8 cm LV Systolic Length (4C) 5.9 cm LV Stroke Volume (4C MOD) 65 ml Atria Name Value Normal LA Dimensions LA Volume (4C A-L) 73 ml LA Volume (BP A-L) 76 ml RA Dimensions RA Area (4C) 14.6 cm2 <=18.0 Report Signatures
[2025-03-28 04:41] LABS: Basophils Percent Auto 0.5 % (0.2-1.2); Eosinophils Absolute Auto 0.1 K/mm3 (0-0.3); Eosinophils Percent Auto 1.2 % (0-4.4); Hematocrit 35.4 % (37.0-47.0); Immature Granulocyte Absolute 0.02 K/mm3 (0.00-0.031); Immature Granulocyte Percent A 0.4 % (0-0.5); Lymphocytes Absolute Auto 1.06 K/mm3 (0.9-3.2); Lymphocytes Percent Auto 18.8 % (18.3-44.2); Mean Corpuscular HGB Conc 31.1 g/dl (32-36); Mean Corpuscular Hemoglobin 29.6 pg (26-34); Mean Corpuscular Volume 95.2 fl (80-100); Mean Platelet Volume 9.7 fl (7.4-10.4); Monocytes Absolute Auto 0.4 K/mm3 (0.1-0.6); Monocytes Percent Auto 6.2 % (2.6-8.5); Neutrophils Absolute Auto 4.1 K/mm3 (1.3-6.7); Neutrophils Percent Auto 72.9 % (45.5-73.1); Platelet Count Result 184 k/mm3 (150-375); Red Blood Count 3.72 M/mm3 (4.2-5.4); Red Cell Distribution Width 17.4 % (11.5-14.5); White Blood Count 5.7 K/mm3 (4.5-10.0)
[2025-03-28 05:12] LABS: Anion Gap 8 mmol/L (4-12); Blood Urea Nitrogen 11 mg/dL (7-17); Calcium 8.6 mg/dL (8.4-10.2); Carbon Dioxide 26 mmol/L (22-30); Chloride 104 mmol/L (98-107); Estimated CRCL calculation 66 ml/min; Estimated Glomerular Filt Rate > 60; Glucose 113 mg/dL (65-110); Potassium 3.8 mmol/L (3.4-5.0); Sodium 138 mmol/L (137-145)
[2025-03-28] MEDS: LEVOTHYROXINE SODIUM 50 MCG TABLET PO (05:46)
[2025-03-28 07:50] LABS: Glucose Point of Care 151 mg/dl (65-105)
[2025-03-28] MEDS: LORATADINE 10 MG TABLET PO (08:22)
[2025-03-28] MEDS: CYANOCOBALAMIN 1,000 MCG TABLET 1000 MCG PO (08:22)
[2025-03-28] MEDS: lisinopriL 20 MG TABLET PO (08:22)
[2025-03-28] MEDS: ursodioL 300 MG CAPSULE 600 MG PO (08:22)
[2025-03-28] MEDS: SERTRALINE HCL 50 MG TABLET 100 MG PO (08:22)
[2025-03-28] MEDS: hydroCHLOROthiazide 12.5 MG CAPSULE PO (08:23)
[2025-03-28] MEDS: POTASSIUM CHLORIDE 20 MEQ ER TABLET 40 MEQ PO (09:32)
[2025-03-28] MEDS: METOPROLOL SUCCINATE EXT REL 100 MG TABCR PO (09:32)
[2025-03-28 09:37] LABS: Magnesium 1.9 mg/dL (1.6-2.3)
--- NOTE | 2025-03-28 10:24 | PM.CNCAR ---
Assessment and Plan Assessment and plan (1) Atrial fibrillation with rapid ventricular response: Code(s): I48.91 - Unspecified atrial fibrillation Status: Acute Plan 1. Paroxysmal atrial flutter Chads Vasc score 3 2. Hypertension -will wean off diltiazem and start on oral diltiazem -metoprolol to be added for better rate control -discussed possible cardioversion with her to restore sinus rhythm. Advised her to restart her anticoagulation and then and decide to do a cardioversion after uninterrupted anticoagulation for 4 weeks. -continue anticoagulation History of Present Illness History of Present Illness Consult date/time: 03/28/25 10:24 Reason For Visit: Afib with RVR Narrative: [place] [id number] [place], [place] [id number] History & Physical Report Signed with Addenda Patient: Bel Gomes MR#: [id number] : 1960 Acct:[id number] Age: 64 ADM Date: 03/27/25 Loc: [facility] [id number]: Jazmine Durham M.D. cc: Roxana Garcia PA-C; Sonal Webster MD; Jazmine Durham MD~ ADDENDUM EKG showing Aflutter v Afib. Awaiting formal read. Addendum Documented By: Ashlyn Naranjo 03/27/252304 Addendum Signed By: <Electronically signed by Ashlyn Naranjo> 03/27/252304 H&P: HPI History of Present Illness Date/Time: 03/27/25 18:17 Chief Complaint: Atrial Fibrillation Narrative: 64 y/o F with PMH of atrial fibrillation, peripheral neuropathy, liver disease, COPD, hypertension, hyperlipidemia, hypothyroidism, and diabetes presents here with atrial fibrillation. The patient presents here after she was found in RVR after the colonoscopy. She is asymptomatic. She has intermittent episodes of RVR which she notices her smart watch but has not seeked medical advice She denies any denies shortness of breath, dizziness, lightheadedness, syncope, nausea, vomiting, chest pain, fever, chills, or weakness. EKG showed atrial flutter with rapid ventricular rate, nonspecific ST-T changes in lateral leads Review of Systems Review of Systems: All systems reviewed & are unremarkable except as noted in HPI. All systems reviewed & are unremarkable except as noted in HPI and below [facility] Past Medical History Medical History (Updated 03/27/25 @ 18:33 by Ashlyn Naranjo APRN) Iron deficiency anemia Vitamin D deficiency Vitamin B12 deficiency Atrial fibrillation History of proteinuria syndrome associated with diabetes. doing well. Syncope considered vasovagal. Pelvic stress fracture Proteinuria Broken hip Right radial fracture Peripheral neuropathy Depression Liver disease Primary biliary cholangitis Chronic obstructive pulmonary disease, unspecified ct 5.20.21 mild emphysema Degeneration of lumbar or lumbosacral intervertebral disc Essential (primary) hypertension Hypothyroidism, unspecified Mixed hyperlipidemia Trigger finger of left thumb Type 2 diabetes mellitus with hyperglycemia Surgical History Surgical History (Updated 03/27/25 @ 18:26 by Ashlyn Naranjo APRN) History of tubal ligation H/O oral surgery H/O shoulder surgery bilateral Total knee replacement status 2009, 2013, bilateral Family History Family History Mother Diabetes mellitus Hypertension Family history of chronic obstructive pulmonary disease Sibling Family history of malignant neoplasm of breast Father Family history of sudden Social History Social History Smoking packs per day: 1 Smoking cigarettes per day: 20.0 Years smoked: 30 Smoking pack-years: 30.00 Smoking status: Current every day smoker Tobacco type: cigarettes Second hand tobacco smoke exposure: Yes Alcohol intake: never Substance use: never Substance use type: does not use Do You Feel Safe in your Home?: Yes Lack of Transportation: YES Lack of Food: Never True Current Housing: I Have Housing Concerned About Future Housing: No Difficulty Paying Gas/Electric Bills: No Difficulty Paying for Meds: No Currently Unemployed: No Education: High School Diploma/GED Difficulty w/ Childcare or Family Care: No Living arrangements: alone Spiritual care concerns: No Meds Home Medications and Allergies Home Medications ?Medication ?Instructions ?Recorded ?Confirmed ?Type fexofenadine 180 mg tablet 180 mg PO DAILY 02/12/20 03/27/25 History (Ling Allergy) albuterol sulfate 90 mcg/actuation 2 inh inhalation Q6H PRN shortness 12/14/23 03/27/25 Rx breath activated powder inhaler of breath or wheezing #1 ea mecobalamin (vitamin B12) 1,000 1,000 mcg PO DAILY #90 tabs 12/28/23 03/27/25 Rx mcg chewable tablet clotrimazole-betamethasone 1 1 applic topical Q12H PRN rash 06/12/24 03/27/25 History %-0.05 % topical cream lisinopril 20 1 tablet PO DAILY 06/12/24 03/27/25 History mg-hydrochlorothiazide 12.5 mg tablet ursodiol 300 mg capsule 300 mg PO DAILY 06/12/24 03/27/25 History blood sugar diagnostic (OneTouch #50 ea 08/01/24 03/27/25 Rx Verio test strips) blood-glucose meter (OneTouch #1 ea 08/01/24 03/27/25 Rx Verio Flex Meter) lancets 33 gauge (OneTouch Delica #100 ea 08/01/24 03/27/25 Rx Plus Lancet) levothyroxine 50 mcg tablet See Rx Instructions .Route 09/13/24 03/27/25 Rx .COMPLEX #90 tabs simvastatin 20 mg tablet See Rx Instructions .Route 11/06/24 03/27/25 Rx .COMPLEX #90 tabs Farxiga 10 mg tablet 10 mg PO QAM #90 tabs 11/07/24 03/27/25 Rx (dapagliflozin propanediol) metoprolol succinate 100 mg 100 mg PO DAILY #90 tabs 12/09/24 03/27/25 Rx tablet,extended release 24 hr apixaban 5 mg tablet (Eliquis) See Rx Instructions .Route 12/12/24 03/27/25 Rx .COMPLEX #180 tabs sertraline 100 mg tablet 100 mg PO DAILY #90 tabs 01/13/25 03/27/25 Rx sitagliptin phosphate 50 mg tablet 50 mg PO DAILY #90 tabs 02/05/25 03/27/25 Rx (Januvia) ferrous sulfate 325 mg (65 mg 325 mg PO DAILY #90 tabs 02/19/25 03/27/25 Rx iron) tablet metformin 1,000 mg tablet 1,000 mg PO BIDWMEAL #180 tabs 03/07/25 03/27/25 Rx trazodone 50 mg tablet See Rx Instructions .Route 03/14/25 03/27/25 Rx .COMPLEX #180 tabs Allergies Allergy/AdvReac Type Severity Reaction Status Date / Time amoxicillin Allergy Unknown Unknown Verified 03/27/25 09:46 Vital Signs Vital Signs - 24 hr 03/27/25 14:26 03/27/25 14:30 03/27/25 14:35 Temperature 36.7 C Pulse Rate 141 H 142 H 142 H Respiratory Rate 28 H 20 20 Blood Pressure 153/89 H Pulse Oximetry 97 98 100 Oxygen Delivery 03/27/25 14:38 03/27/25 14:45 03/27/25 15:06 Temperature Pulse Rate 142 H 138 H 134 H Respiratory Rate 27 H 21 H Blood Pressure Pulse Oximetry 98 99 Oxygen Delivery 03/27/25 15:15 03/27/25 15:16 03/27/25 15:30 Temperature Pulse Rate 130 H 147 H 122 H Respiratory Rate 40 H 23 H 18 Blood Pressure Pulse Oximetry 99 98 95 Oxygen Delivery 03/27/25 15:31 03/27/25 15:39 03/27/25 15:40 Temperature Pulse Rate 125 H 134 H 134 H Respiratory Rate 20 21 H 21 H Blood Pressure 136/74 136/74 Pulse Oximetry 98 96 98 Oxygen Delivery 03/27/25 15:52 03/27/25 16:00 03/27/25 16:20 Temperature Pulse Rate 125 H 126 H 126 H Respiratory Rate 33 H 22 H 24 H Blood Pressure 165/94 H Pulse Oximetry 97 93 97 Oxygen Delivery 03/27/25 16:38 03/27/25 16:41 03/27/25 16:45 Temperature Pulse Rate 122 H 141 H 151 H Respiratory Rate 25 H 17 Blood Pressure 165/94 H Pulse Oximetry 97 98 Oxygen Delivery 03/27/25 16:54 03/27/25 17:00 03/27/25 17:01 Temperature Pulse Rate 129 H 123 H 130 H Respiratory Rate 24 H 24 H 14 Blood Pressure 151/90 H 157/99 H Pulse Oximetry 86 L 80 L 92 Oxygen Delivery 03/27/25 17:15 03/27/25 17:16 03/27/25 17:30 Temperature Pulse Rate 118 H 138 H 116 H Respiratory Rate 20 17 20 Blood Pressure 165/85 H Pulse Oximetry 95 97 95 Oxygen Delivery 03/27/25 17:31 03/27/25 17:39 03/27/25 17:57 Temperature Pulse Rate 128 H 132 H 131 H Respiratory Rate 19 Blood Pressure 156/99 H 156/99 H 151/97 H Pulse Oximetry 94 Oxygen Delivery 03/27/25 19:43 03/27/25 20:00 03/27/25 20:00 Temperature 36.8 C Pulse Rate 114 H 119 H Respiratory Rate 18 Blood Pressure 123/40 L Pulse Oximetry 97 Oxygen Delivery Room Air 03/27/25 21:55 03/27/25 22:00 03/27/25 23:40 Temperature Pulse Rate 120 H 88 106 H Respiratory Rate Blood Pressure 113/59 L Pulse Oximetry 95 Oxygen Delivery 03/27/25 23:54 03/27/25 23:54 03/28/25 00:00 Temperature 37.0 C Pulse Rate 98 97 Respiratory Rate 18 Blood Pressure 108/45 L Pulse Oximetry 96 Oxygen Delivery Room Air 03/28/25 02:00 03/28/25 02:00 03/28/25 03:55 Temperature 36.8 C Pulse Rate 88 102 H 97 Respiratory Rate 18 Blood Pressure 136/59 L 123/80 Pulse Oximetry 96 Oxygen Delivery 03/28/25 04:00 03/28/25 04:00 03/28/25 04:00 Temperature Pulse Rate 95 95 Respiratory Rate Blood Pressure Pulse Oximetry Oxygen Delivery Room Air 03/28/25 06:00 03/28/25 06:03 03/28/25 06:14 Temperature Pulse Rate 100 110 H 120 H Respiratory Rate Blood Pressure 125/59 L Pulse Oximetry 95 Oxygen Delivery 03/28/25 07:30 03/28/25 09:32 03/28/25 10:00 Temperature 36.8 C Pulse Rate 112 H 119 H 139 H Respiratory Rate 16 16 Blood Pressure 131/82 130/88 Pulse Oximetry 96 97 Oxygen Delivery Exam Narrative: GENERAL: Appears older than stated age, non-toxic, in no acute distress. HEAD: Normocephalic, atraumatic. RESPIRATORY: Airway patent, respirations nonlabored. Coarse lung sounds in bases bilaterally. No significant wheezing or rhonchi. CARDIOVASCULAR: Tachycardic with irregular rhythm without murmurs, rubs, or gallops. ABDOMINAL: Soft, nontender, nondistended. Normoactive BS. MUSCULOSKELETAL: Moves all extremities. No gross deformities. No peripheral edema. No calf tenderness. SKIN: Warm, dry, normal color. NEURO: A&O X3. Speech clear. Cranial nerves II-XII grossly intact. Steady gait. No ataxic movements. PSYCHIATRIC: Appropriate mood and affect. Normal interaction. Const: General: comfortable and no acute distress Other: , female, nontoxic appearance HENMT: Face/Nose/Sinus: Normal nares present Mouth: Yes moist mucous membranes Eyes: General: appearance normal, both eyes and all related structures Sclera: sclerae normal Pupils: Equal, round and reactive pupils present EOM: EOMs intact bilaterally Resp: Effort & Inspection: normal respiratory effort Auscultation: clear to auscultation bilaterally Cardio: Rate: tachycardic Rhythm: abnormal rhythm (Consistent with atrial flutter/atrial fib) Other: No murmur rub. GI: Other: Abdomen soft, nondistended, nontender. Normoactive bowel sounds in all quadrants. Skin: General skin exam: normal color and no rashes or lesions noted Wounds: no wounds Neuro: Cranial nerves: Yes Equal, round and reactive pupils present Speech: normal speech Motor exam (neuro): 5/5 motor strength present throughout Sensory Exam: normal sensation Other: A&O x4 Extrem: General: normal to inspection Psych: Mental Status: mental status grossly normal Affect: normal affect Other: Good insight and judgment, pleasant Results Labs and Meds 03/28/25 04:27 03/28/25 04:27 Lab results: Cardiac Enzymes 03/27/25 03/27/25 03/27/25 Range/Units 14:31 17:15 20:07 AST 47 H (14-36) U/L Troponin I < 0.012 < 0.012 < 0.012 (0.000-0.034) ng/mL Coagulation 03/27/25 Range/Units 14:31 PT 13.9 (11.1-14.7) Seconds APTT 24.2 (22.3-36.8) Seconds CBC 03/27/25 03/28/25 Range/Units 14:31 04:27 WBC 5.8 5.7 (4.5-10.0) K/mm3 RBC 3.83 L 3.72 L (4.2-5.4) M/mm3 Hgb 11.3 L 11.0 L (12.0-15.0) g/dL Hct 36.6 L 35.4 L (37.0-47.0) % Plt Count 189 184 (150-375) k/mm3 Lymph # (Auto) 0.94 1.06 (0.9-3.2) K/mm3 [place] # (Auto) 0.3 0.4 (0.1-0.6) K/mm3 Eos # (Auto) 0.1 0.1 (0-0.3) K/mm3 Baso # (Auto) 0.0 0.0 (0.0-0.1) K/mm3 Comprehensive Metabolic Panel 03/27/25 03/28/25 Range/Units 14:31 04:27 Sodium 137 138 (137-145) mmol/L Potassium 4.2 3.8 (3.4-5.0) mmol/L Chloride 102 104 (98-107) mmol/L Carbon Dioxide 28 26 (22-30) mmol/L BUN 7 D 11 (7-17) mg/dL Creatinine 0.59 L 0.67 L (0.7-1.0) mg/dL Glucose 136 H 113 H (65-110) mg/dL Calcium 8.7 8.6 (8.4-10.2) mg/dL AST 47 H (14-36) U/L ALT 25 (6-35) U/L Alkaline Phosphatase 126 (38-126) U/L Total Protein 8.0 (6.3-8.2) g/dL Albumin 4.2 (3.5-5.1) g/dL Intake and Output 03/27/25 03/28/25 03/28/25 23:59 07:59 15:59 Intake Total 8.1 272.0 Balance 8.1 272.0 Intake: IV 8.1 32.0 dilTIAZem 100 MG/100 ML 100 mg 8.1 32.0 In 100 ml @ 5 MG/HR 5 mls/hr IV CONT .Q20H [facility] Rx#:[id number] Oral 240 Patient Weight 03/28/25 23:59 Weight 70.9 kg
[2025-03-28] MEDS: dilTIAZem 100 MG/100 ML 100 MG/100 ML BAG IV CONT (11:29)
[2025-03-28] MEDS: DIGOXIN INJ 250 MCG/ML 2 ML AMP (*BKC) 500 MCG IV PUSH (11:30)
[2025-03-28 11:39] LABS: Glucose Point of Care 148 mg/dl (65-105)
--- NOTE | 2025-03-28 13:18 | P.PNIM_ITS ---
Progress Note: A&P Assessment and Plan (1) Atrial fibrillation with rapid ventricular response: Code(s): I48.91 - Unspecified atrial fibrillation Status: Acute Assessment and Plan: Continue Cardizem infusion Continue Metoprolol 50mg q6, Eliquis cardiology ECHO Cardiology following DM2 SSI with Accucheks HTN titrate home meds DVT prophylaxis on Eliquis (2) Anemia: Qualifiers: Anemia type: unspecified type Qualified Code(s): D64.9 - Anemia, unspecified Code(s): D64.9 - Anemia, unspecified Status: Chronic Assessment and Plan: Chronic, history of iron deficiency anemia. Hemoglobin 11.3, previously 8.4 on 02/18/2025. Monitor. (3) Type 2 diabetes, controlled, with peripheral neuropathy: Code(s): E11.42 - Type 2 diabetes mellitus with diabetic polyneuropathy Status: Chronic Assessment and Plan: - hypoglycemia protocol - POC blood glucose ACHS - home medication: hold Farixga, metformin, Januvia while inpatient - correct regimen ordered - moderate dose TIDWM and HS, based off BMI (28) - A1C 5.9% on 02/18/2025 (4) Essential (primary) hypertension: Code(s): I10 - Essential (primary) hypertension Status: Acute Assessment and Plan: - chronic, currently 151/97 - continue home medications: Lisinopril-hydrochlorothiazide - monitor Plan Diet: Heart healthy GI Prophylaxis: Not currently indicated DVT Prophylaxis: Eliquis b.i.d. IV fluids: None Lines/Tubes: Peripheral IV Code Status: Full code Subjective Date/time seen: 03/28/25 13:18 Interval history: Comfortable at bedside Review of Systems Review of Systems: All systems reviewed & are unremarkable except as noted in HPI and below Exam Const: General: comfortable and no acute distress Other: , female, nontoxic appearance HENMT: Face/Nose/Sinus: Normal nares present Mouth: Yes moist mucous membranes Eyes: General: appearance normal, both eyes and all related structures Sclera: sclerae normal Pupils: Equal, round and reactive pupils present EOM: EOMs intact bilaterally Resp: Effort & Inspection: normal respiratory effort Auscultation: clear to auscultation bilaterally Cardio: Rate: tachycardic Rhythm: abnormal rhythm (Consistent with atrial flutter/atrial fib) Other: No murmur rub. GI: Other: Abdomen soft, nondistended, nontender. Normoactive bowel sounds in all quadrants. Skin: General skin exam: normal color and no rashes or lesions noted Wounds: no wounds Neuro: Cranial nerves: Yes Equal, round and reactive pupils present Speech: normal speech Motor exam (neuro): 5/5 motor strength present throughout Sensory Exam: normal sensation Other: A&O x4 Extrem: General: normal to inspection Psych: Mental Status: mental status grossly normal Affect: normal affect Other: Good insight and judgment, pleasant Objective Data Vital Signs Vital Signs: Vital Signs - 24 hr 03/27/25 14:26 03/27/25 14:30 03/27/25 14:35 Temperature 98.1 F Pulse Rate 141 H 142 H 142 H Respiratory Rate 28 H 20 20 Blood Pressure 153/89 H Pulse Oximetry 97 98 100 Oxygen Delivery 03/27/25 14:38 03/27/25 14:45 03/27/25 15:06 Temperature Pulse Rate 142 H 138 H 134 H Respiratory Rate 27 H 21 H Blood Pressure Pulse Oximetry 98 99 Oxygen Delivery 03/27/25 15:15 03/27/25 15:16 03/27/25 15:30 Temperature Pulse Rate 130 H 147 H 122 H Respiratory Rate 40 H 23 H 18 Blood Pressure Pulse Oximetry 99 98 95 Oxygen Delivery 03/27/25 15:31 03/27/25 15:39 03/27/25 15:40 Temperature Pulse Rate 125 H 134 H 134 H Respiratory Rate 20 21 H 21 H Blood Pressure 136/74 136/74 Pulse Oximetry 98 96 98 Oxygen Delivery 03/27/25 15:52 03/27/25 16:00 03/27/25 16:20 Temperature Pulse Rate 125 H 126 H 126 H Respiratory Rate 33 H 22 H 24 H Blood Pressure 165/94 H Pulse Oximetry 97 93 97 Oxygen Delivery 03/27/25 16:38 03/27/25 16:41 03/27/25 16:45 Temperature Pulse Rate 122 H 141 H 151 H Respiratory Rate 25 H 17 Blood Pressure 165/94 H Pulse Oximetry 97 98 Oxygen Delivery 03/27/25 16:54 03/27/25 17:00 03/27/25 17:01 Temperature Pulse Rate 129 H 123 H 130 H Respiratory Rate 24 H 24 H 14 Blood Pressure 151/90 H 157/99 H Pulse Oximetry 86 L 80 L 92 Oxygen Delivery 03/27/25 17:15 03/27/25 17:16 03/27/25 17:30 Temperature Pulse Rate 118 H 138 H 116 H Respiratory Rate 20 17 20 Blood Pressure 165/85 H Pulse Oximetry 95 97 95 Oxygen Delivery 03/27/25 17:31 03/27/25 17:39 03/27/25 17:57 Temperature Pulse Rate 128 H 132 H 131 H Respiratory Rate 19 Blood Pressure 156/99 H 156/99 H 151/97 H Pulse Oximetry 94 Oxygen Delivery 03/27/25 19:43 03/27/25 20:00 03/27/25 20:00 Temperature 98.3 F Pulse Rate 114 H 119 H Respiratory Rate 18 Blood Pressure 123/40 L Pulse Oximetry 97 Oxygen Delivery Room Air 03/27/25 21:55 03/27/25 22:00 03/27/25 23:40 Temperature Pulse Rate 120 H 88 106 H Respiratory Rate Blood Pressure 113/59 L Pulse Oximetry 95 Oxygen Delivery 03/27/25 23:54 03/27/25 23:54 03/28/25 00:00 Temperature 98.6 F Pulse Rate 98 97 Respiratory Rate 18 Blood Pressure 108/45 L Pulse Oximetry 96 Oxygen Delivery Room Air 03/28/25 02:00 03/28/25 02:00 03/28/25 03:55 Temperature 98.3 F Pulse Rate 88 102 H 97 Respiratory Rate 18 Blood Pressure 136/59 L 123/80 Pulse Oximetry 96 Oxygen Delivery 03/28/25 04:00 03/28/25 04:00 03/28/25 04:00 Temperature Pulse Rate 95 95 Respiratory Rate Blood Pressure Pulse Oximetry Oxygen Delivery Room Air 03/28/25 06:00 03/28/25 06:03 03/28/25 06:14 Temperature Pulse Rate 100 110 H 120 H Respiratory Rate Blood Pressure 125/59 L Pulse Oximetry 95 Oxygen Delivery 03/28/25 07:30 03/28/25 08:00 03/28/25 08:00 Temperature 98.2 F Pulse Rate 112 H 128 H Respiratory Rate 16 Blood Pressure 131/82 Pulse Oximetry 96 Oxygen Delivery Room Air 03/28/25 09:32 03/28/25 10:00 03/28/25 10:00 Temperature Pulse Rate 119 H 139 H 108 H Respiratory Rate 16 Blood Pressure 130/88 Pulse Oximetry 97 Oxygen Delivery 03/28/25 11:29 03/28/25 11:29 03/28/25 11:30 Temperature Pulse Rate 108 H 108 H 108 H Respiratory Rate Blood Pressure Pulse Oximetry Oxygen Delivery 03/28/25 12:00 Temperature 98.4 F Pulse Rate 77 Respiratory Rate 18 Blood Pressure 128/92 H Pulse Oximetry 98 Oxygen Delivery Intake/Output Intake/Output: Intake & Output 03/25/25 03/26/25 03/27/25 03/28/25 23:59 23:59 23:59 23:59 Intake Total 8.1 299.2 Output Total 400 Balance 8.1 -100.8 Meds/Results Medications: Active Medications Generic Name Dose Route Start Last Admin Trade Name Freq PRN Reason Stop Dose Admin Acetaminophen 650 mg 03/27/25 16:53 Acetaminophen 325 Mg Tablet PO Q4H PRN Mild Pain (1-3) or Fever Albuterol 2 puff 03/27/25 19:52 Albuterol Sulfate (*Sp) Aerosol 1 Puff INHALATION Q6HRT PRN shortness of breath or wheezin Apixaban 5 mg 03/27/25 21:00 03/27/25 20:50 Apixaban 5 Mg Tablet PO Not Given Q12HR LENNIE Clotrimazole 1 applic 03/27/25 19:48 Betamethasone/Clotrimazole Cream 15 Gm Tube TOPICAL Q12H PRN rash Cyanocobalamin 1,000 mcg 03/28/25 09:00 03/28/25 08:22 Cyanocobalamin 1,000 Mcg Tablet PO 1,000 mcg QAM LENNIE Administration Dextrose 12.5 gm 03/27/25 16:53 Dextrose 50% 25 Gm/50 Ml Syringe IV PUSH PRN PRN Hypoglycemia Protocol Ferrous Sulfate 325 mg 03/28/25 12:00 Ferrous Sulfate [address] BY MOUTH DAILY@1200 LENNIE Glucagon 1 mg 03/27/25 16:53 Glucagon For Inj 1 Mg Vial IM PRN PRN Hypoglycemia Protocol Glucose 15 gm 03/27/25 16:53 Glucose Oral Gel 15 Gm Of Glucse In 37.5 Gm Tube PO PRN PRN Hypoglycemia Protocol Hydrochlorothiazide 12.5 mg 03/28/25 09:00 03/28/25 08:23 Hydrochlorothiazide 12.5 Mg Capsule PO 12.5 mg QAM LENNIE Administration Dextrose 1,000 mls @ 100 mls/hr 03/27/25 16:53 Dextrose 5% 1,000 Ml IVPB PRN PRN Hypoglycemia Protocol Diltiazem HCl 100 mg in 100 mls @ 10 mls/hr 03/27/25 23:35 03/28/25 11:29 Cardizem 100 Mg/100 Ml IV CONT 5 mg/hr .Q10H LENNIE 5 mls/hr Administration 10 MG/HR Insulin Aspart 3 - 6 units 03/28/25 08:00 03/28/25 09:03 Insulin Aspart (*Bkc) 100 Units/Ml SUB-Q Not Given TIDWM LENNIE Protocol Insulin Aspart 1 - 3 units 03/27/25 21:00 03/27/25 20:50 Insulin Aspart (*Bkc) 100 Units/Ml SUB-Q 3 units HS LENNIE Administration Protocol Levothyroxine Sodium 50 mcg 03/28/25 06:30 03/28/25 05:46 Levothyroxine Sodium 50 Mcg Tablet PO 50 mcg DAILY@0630 LENNIE Administration Lisinopril 20 mg 03/28/25 09:00 03/28/25 08:22 Lisinopril 20 Mg Tablet PO 20 mg QAM LENNIE Administration Loratadine 10 mg 03/28/25 09:00 03/28/25 08:22 Loratadine 10 Mg Tablet PO 10 mg QAM [facility] Administration Metoprolol Tartrate 50 mg 03/28/25 10:25 Metoprolol Tartrate 50 Mg Tab PO Q6H [facility] Miscellaneous Information 0 each 03/27/25 00:01 Lotrisone Cream Add Site Of Use XX 04/26/25 00:00 CLARIFY LENNIE Ondansetron HCl 4 mg 03/27/25 16:53 Ondansetron Inj 4 Mg/2 Ml Vial IV PUSH Q4H PRN Nausea Sertraline HCl 100 mg 03/28/25 09:00 03/28/25 08:22 Sertraline Hcl 50 Mg Tablet PO 100 mg DAILY LENNIE Administration Trazodone HCl 50 - 100 mg 03/27/25 21:00 03/27/25 20:50 Trazodone Hcl 50 Mg Tablet PO 100 mg HS LENNIE Administration Ursodiol 600 mg 03/28/25 09:00 03/28/25 08:22 Ursodiol 300 Mg Capsule PO 600 mg QAM LENNIE Administration Ursodiol 300 mg 03/27/25 21:00 03/27/25 20:51 Ursodiol 300 Mg Capsule PO 300 mg QHS LENNIE Administration Radiology Results: ITS Impressions Chest X-Ray 03/27/25 14:55 IMPRESSION: 1: NO ACUTE CARDIOPULMONARY DISEASE. Labs Labs: Laboratory Results - last 24 hr 03/27/25 03/27/25 03/27/25 14:31 17:15 18:31 WBC 5.8 RBC 3.83 L Hgb 11.3 L Hct 36.6 L MCV 95.6 MCH 29.5 MCHC 30.9 L RDW 17.6 H Plt Count 189 MPV 9.5 Immature Gran % (Auto) 0.3 Neut % (Auto) 76.3 H Lymph % (Auto) 16.3 L [place] % (Auto) 5.0 Eos % (Auto) 1.6 Baso % (Auto) 0.5 Lymph # (Auto) 0.94 [place] # (Auto) 0.3 Eos # (Auto) 0.1 Baso # (Auto) 0.0 Abs Immat Gran (auto) 0.02 Absolute Neuts (auto) 4.4 Absolute Nucleated RBC 0.000 Nucleated RBC % 0.0 PT 13.9 INR 1.0 APTT 24.2 Sodium 137 Potassium 4.2 Chloride 102 Carbon Dioxide 28 Anion Gap 7 BUN 7 D Creatinine 0.59 L Estim Creat Clear Calc Not Reportable Estimated GFR > 60 Glucose 136 H POC Capillary Glucose 316 H Calcium 8.7 Magnesium 2.0 Total Bilirubin 0.3 AST 47 H ALT 25 Alkaline Phosphatase 126 Troponin I < 0.012 < 0.012 NT-Pro-B Natriuret Pep 901 H Total Protein 8.0 Albumin 4.2 Lipase 115 03/27/25 03/27/25 03/28/25 20:07 20:33 04:23 WBC RBC Hgb Hct MCV MCH MCHC RDW Plt Count MPV Immature Gran % (Auto) Neut % (Auto) Lymph % (Auto) [place] % (Auto) Eos % (Auto) Baso % (Auto) Lymph # (Auto) [place] # (Auto) Eos # (Auto) Baso # (Auto) Abs Immat Gran (auto) Absolute Neuts (auto) Absolute Nucleated RBC Nucleated RBC % PT INR APTT Sodium Potassium Chloride Carbon Dioxide Anion Gap BUN Creatinine Estim Creat Clear Calc Estimated GFR Glucose POC Capillary Glucose 339 H Calcium Magnesium 1.9 Total Bilirubin AST ALT Alkaline Phosphatase Troponin I < 0.012 NT-Pro-B Natriuret Pep Total Protein Albumin Lipase 03/28/25 03/28/25 03/28/25 04:27 07:46 11:36 WBC 5.7 RBC 3.72 L Hgb 11.0 L Hct 35.4 L MCV 95.2 MCH 29.6 MCHC 31.1 L RDW 17.4 H Plt Count 184 MPV 9.7 Immature Gran % (Auto) 0.4 Neut % (Auto) 72.9 Lymph % (Auto) 18.8 [place] % (Auto) 6.2 Eos % (Auto) 1.2 Baso % (Auto) 0.5 Lymph # (Auto) 1.06 [place] # (Auto) 0.4 Eos # (Auto) 0.1 Baso # (Auto) 0.0 Abs Immat Gran (auto) 0.02 Absolute Neuts (auto) 4.1 Absolute Nucleated RBC 0.000 Nucleated RBC % 0.0 PT INR APTT Sodium 138 Potassium 3.8 Chloride 104 Carbon Dioxide 26 Anion Gap 8 BUN 11 Creatinine 0.67 L Estim Creat Clear Calc 66 Estimated GFR > 60 Glucose 113 H POC Capillary Glucose 151 H 148 H Calcium 8.6 Magnesium Total Bilirubin AST ALT Alkaline Phosphatase Troponin I NT-Pro-B Natriuret Pep Total Protein Albumin Lipase Quality VTE Prophylaxis VTE prophylaxis: pharmacologic ordered
[2025-03-28 16:07] LABS: Glucose Point of Care 235 mg/dl (65-105)
[2025-03-28] MEDS: METOPROLOL TARTRATE 50 MG TAB PO ×2 (17:22→23:14)
[2025-03-28] MEDS: ACETAMINOPHEN 325 MG TABLET 650 MG PO (17:22)
[2025-03-28] MEDS: INSULIN ASPART (*BKC) 100 UNITS/ML SUB-Q ×2 (17:24→20:42)
[2025-03-28] MEDS: dilTIAZem HCL 60 MG TABLET PO ×2 (17:30→23:14)
[2025-03-28] MEDS: traZODone HCL 50 MG TABLET PO (20:43)
[2025-03-28] MEDS: ursodioL 300 MG CAPSULE PO (20:44)
[2025-03-28 20:55] LABS: Glucose Point of Care 203 mg/dl (65-105)
[2025-03-29] VITALS (9 sets, daily range): BP systolic 91–117; BP diastolic 58–82; PULSE 67–100; RESP 16–28; TEMP 36.6–36.7; O2SAT 97
[2025-03-29 04:41] LABS: Basophils Percent Auto 0.6 % (0.2-1.2); Eosinophils Absolute Auto 0.1 K/mm3 (0-0.3); Hematocrit 36.7 % (37.0-47.0); Hemoglobin 10.8 g/dL (12.0-15.0); Immature Granulocyte Absolute 0.02 K/mm3 (0.00-0.031); Immature Granulocyte Percent A 0.4 % (0-0.5); Lymphocytes Absolute Auto 1.12 K/mm3 (0.9-3.2); Lymphocytes Percent Auto 22.3 % (18.3-44.2); Mean Corpuscular HGB Conc 29.4 g/dl (32-36); Mean Corpuscular Volume 98.7 fl (80-100); Monocytes Absolute Auto 0.3 K/mm3 (0.1-0.6); Monocytes Percent Auto 6.4 % (2.6-8.5); Neutrophils Absolute Auto 3.4 K/mm3 (1.3-6.7); Neutrophils Percent Auto 68.3 % (45.5-73.1); Platelet Count Result 185 k/mm3 (150-375); Red Blood Count 3.72 M/mm3 (4.2-5.4); Red Cell Distribution Width 17.3 % (11.5-14.5)
[2025-03-29 04:44] LABS: Alanine Aminotransferase 28 U/L (6-35); Albumin Level 3.8 g/dL (3.5-5.1); Alkaline Phosphatase 122 U/L (38-126); Anion Gap 7 mmol/L (4-12); Aspartate Amino Transferase 46 U/L (14-36); Bilirubin,Total 0.3 mg/dL (0.2-1.3); Blood Urea Nitrogen 14 mg/dL (7-17); Calcium 8.4 mg/dL (8.4-10.2); Carbon Dioxide 27 mmol/L (22-30); Chloride 102 mmol/L (98-107); Estimated CRCL calculation 55 ml/min; Estimated Glomerular Filt Rate > 60; Glucose 152 mg/dL (65-110); Sodium 136 mmol/L (137-145)
[2025-03-29] MEDS: dilTIAZem HCL 60 MG TABLET PO ×2 (05:16→11:16)
[2025-03-29] MEDS: LEVOTHYROXINE SODIUM 50 MCG TABLET PO (05:16)
[2025-03-29] MEDS: METOPROLOL TARTRATE 50 MG TAB PO ×2 (05:16→11:16)
[2025-03-29 07:38] LABS: Glucose Point of Care 153 mg/dl (65-105)
[2025-03-29] MEDS: hydroCHLOROthiazide 12.5 MG CAPSULE PO (09:02)
[2025-03-29] MEDS: LORATADINE 10 MG TABLET PO (09:02)
[2025-03-29] MEDS: lisinopriL 20 MG TABLET PO (09:02)
[2025-03-29] MEDS: SERTRALINE HCL 50 MG TABLET 100 MG PO (09:02)
[2025-03-29] MEDS: CYANOCOBALAMIN 1,000 MCG TABLET 1000 MCG PO (09:02)
[2025-03-29] MEDS: ursodioL 300 MG CAPSULE 600 MG PO (09:02)
--- NOTE | 2025-03-29 10:51 | P.PNCA_ITS ---
Progress Note: A&P Assessment and Plan (1) Atrial fibrillation with rapid ventricular response: Code(s): I48.91 - Unspecified atrial fibrillation Status: Acute Plan 1. Paroxysmal atrial flutter Chads Vasc score 3 2. Hypertension -continue oral diltiazem and metoprolol -discussed possible cardioversion with her to restore sinus rhythm. Continue anticoagulation; follow in the cardiology clinic to discuss possible cardiovers ion Cardiology will sign off Subjective Date/time seen: 03/29/25 10:51 Interval history: Comfortable at bedside Heart rate controlled on current medication Exam Narrative: GENERAL: Appears older than stated age, non-toxic, in no acute distress. HEAD: Normocephalic, atraumatic. RESPIRATORY: Airway patent, respirations nonlabored. Coarse lung sounds in bases bilaterally. No significant wheezing or rhonchi. CARDIOVASCULAR: Tachycardic with irregular rhythm without murmurs, rubs, or gallops. ABDOMINAL: Soft, nontender, nondistended. Normoactive BS. MUSCULOSKELETAL: Moves all extremities. No gross deformities. No peripheral edema. No calf tenderness. SKIN: Warm, dry, normal color. NEURO: A&O X3. Speech clear. Cranial nerves II-XII grossly intact. Steady gait. No ataxic movements. PSYCHIATRIC: Appropriate mood and affect. Normal interaction. Const: General: comfortable and no acute distress Other: , female, nontoxic appearance HENMT: Face/Nose/Sinus: Normal nares present Mouth: Yes moist mucous membranes Eyes: General: appearance normal, both eyes and all related structures Scle ra: sclerae normal Pupils: Equal, round and reactive pupils present EOM: EOMs intact bilaterally Resp: Effort & Inspection: normal respiratory effort Auscultation: clear to auscultation bilaterally Cardio: Rate: tachycardic Rhythm: abnormal rhythm (Consistent with atrial flutter/atrial fib) Other: No murmur rub. GI: Other: Abdomen soft, nondistended, nontender. Normoactive bowel sounds in all quadrants. Skin: General skin exam: normal color and no rashes or lesions noted Wounds: no wounds Neuro: Cranial nerves: Yes Equal, round and reactive pupils present Speech: normal speech Motor exam (neuro): 5/5 motor strength present throughout Sensory Exam: normal sensation Other: A&O x4 Extrem: General: normal to inspection Psych: Mental Status: mental status grossly normal Affect: normal affect Other: Good insight and judgment, pleasant Objective Data Vital Signs Vital Signs: Vital Signs - 24 hr 03/28/25 11:29 03/28/25 11:29 03/28/25 11:30 Temperature Pulse Rate 108 H 108 H 108 H Respiratory Rate Blood Pressure Pulse Oximetry Oxygen Delivery 03/28/25 12:00 03/28/25 12:00 03/28/25 12:00 Temperature 36.9 C Pulse Rate 77 83 Respiratory Rate 18 Blood Pressure 128/92 H Pulse Oximetry 98 Oxygen Delivery Room Air 03/28/25 14:00 03/28/25 14:00 03/28/25 15:59 Temperature 36.8 C Pulse Rate 73 86 79 Respiratory Rate 20 16 Blood Pressure 110/58 L 106/42 L Pulse Oximetry 99 97 Oxygen Delivery 03/28/25 16:00 03/28/25 16:00 03/28/25 17:22 Temperature Pulse Rate 92 89 Respiratory Rate Blood Pressure Pulse Oximetry Oxygen Delivery Room Air 03/28/25 18:00 03/28/25 20:00 03/28/25 20:00 Temperature 36.7 C Pulse Rate 89 88 87 Respiratory Rate 16 Blood Pressure 119/98 H Pulse Oximetry 99 Oxygen Delivery 03/28/25 20:00 03/28/25 22:00 03/28/25 23:14 Temperature Pulse Rate 74 84 Respiratory Rate Blood Pressure Pulse Oximetry Oxygen Delivery Room Air 03/28/25 23:32 03/28/25 23:36 03/29/25 00:00 Temperature 36.6 C Pulse Rate 84 74 Respiratory Rate 16 Blood Pressure 108/50 L Pulse Oximetry 95 Oxygen Delivery Room Air 03/29/25 02:00 03/29/25 03:36 03/29/25 04:00 Temperature 36.6 C Pulse Rate 81 73 Respiratory Rate 16 Blood Pressure 91/58 L Pulse Oximetry 97 Oxygen Delivery Room Air 03/29/25 04:00 03/29/25 05:16 03/29/25 05:28 Temperature Pulse Rate 67 86 80 Respiratory Rate Blood Pressure Pulse Oximetry Oxygen Delivery 03/29/25 08:00 03/29/25 08:00 03/29/25 08:00 Temperature 36.7 C Pulse Rate 73 93 Respiratory Rate 20 Blood Pressure 105/59 L Pulse Oximetry 97 Oxygen Delivery Room Air Intake/Output Intake/Output: Intake & Output 03/26/25 03/27/25 03/28/25 03/29/25 23:59 23:59 23:59 23:59 Intake Total 8.1 1329.2 670 Output Total 775 Balance 8.1 554.2 670 Meds/Results Medications: Active Medications Generic Name Dose Route Start Last Admin Trade Name Freq PRN Reason Stop Dose Admin Acetaminophen 650 mg 03/27/25 16:53 03/28/25 17:22 Acetaminophen 325 Mg Tablet PO 650 mg Q4H PRN Administration Mild Pain (1-3) or Fever Albuterol 2 puff 03/27/25 19:52 Albuterol Sulfate (*Sp) Aerosol 1 Puff INHALATION Q6HRT PRN shortness of breath or wheezin Apixaban 5 mg 03/27/25 21:00 03/27/25 20:50 Apixaban 5 Mg Tablet PO Not Given Q12HR LENNIE Clotrimazole 1 applic 03/27/25 19:48 Betamethasone/Clotrimazole Cream 15 Gm Tube TOPICAL Q12H PRN rash Cyanocobalamin 1,000 mcg 03/28/25 09:00 03/29/25 09:02 Cyanocobalamin 1,000 Mcg Tablet PO 1,000 mcg QAM LENNIE Administration Dextrose 12.5 gm 03/27/25 16:53 Dextrose 50% 25 Gm/50 Ml Syringe IV PUSH PRN PRN Hypoglycemia Protocol Diltiazem HCl 60 mg 03/28/25 16:25 03/29/25 05:16 Diltiazem Hcl 60 Mg Tablet PO 60 mg Q6HR LENNIE Administration Ferrous Sulfate 325 mg 03/28/25 12:00 03/28/25 15:48 Ferrous Sulfate [address] BY MOUTH Not Given DAILY@1200 LENNIE Glucagon 1 mg 03/27/25 16:53 Glucagon For Inj 1 Mg Vial IM PRN PRN Hypoglycemia Protocol Glucose 15 gm 03/27/25 16:53 Glucose Oral Gel 15 Gm Of Glucse In 37.5 Gm Tube PO PRN PRN Hypoglycemia Protocol Hydrochlorothiazide 12.5 mg 03/28/25 09:00 03/29/25 09:02 Hydrochlorothiazide 12.5 Mg Capsule PO 12.5 mg QAM LENNIE Administration Dextrose 1,000 mls @ 100 mls/hr 03/27/25 16:53 Dextrose 5% 1,000 Ml IVPB PRN PRN Hypoglycemia Protocol Insulin Aspart 3 - 6 units 03/28/25 08:00 03/29/25 07:40 Insulin Aspart (*Bkc) 100 Units/Ml SUB-Q Not Given TIDWM LENNIE Protocol Insulin Aspart 1 - 3 units 03/27/25 21:00 03/28/25 20:42 Insulin Aspart (*Bkc) 100 Units/Ml SUB-Q 1 units HS LENNIE Administration Protocol Levothyroxine Sodium 50 mcg 03/28/25 06:30 03/29/25 05:16 Levothyroxine Sodium 50 Mcg Tablet PO 50 mcg DAILY@0630 LENNIE Administration Lisinopril 20 mg 03/28/25 09:00 03/29/25 09:02 Lisinopril 20 Mg Tablet PO 20 mg QAM LENNIE Administration Loratadine 10 mg 03/28/25 09:00 03/29/25 09:02 Loratadine 10 Mg Tablet PO 10 mg QAM LENNIE Administration Metoprolol Tartrate 50 mg 03/28/25 10:25 03/29/25 05:16 Metoprolol Tartrate 50 Mg Tab PO 50 mg Q6H LENNIE Administration Miscellaneous Information 0 each 03/27/25 00:01 03/29/25 00:33 Lotrisone Cream Add Site Of Use XX 04/26/25 00:00 Not Given CLARIFY LENNIE Ondansetron HCl 4 mg 03/27/25 16:53 Ondansetron Inj 4 Mg/2 Ml Vial IV PUSH Q4H PRN Nausea Perflutren Lipid Microsphere 0 ml 03/28/25 13:22 Perflutren Lipid Microspheres 1.5 Ml Vial Diluted To 10 Ml Total Volume IV PUSH 03/31/25 13:22 ONCE PRN adequate visualization Protocol Sertraline HCl 100 mg 03/28/25 09:00 03/29/25 09:02 Sertraline Hcl 50 Mg Tablet PO 100 mg DAILY LENNIE Administration Trazodone HCl 50 - 100 mg 03/27/25 21:00 03/28/25 20:43 Trazodone Hcl 50 Mg Tablet PO 100 mg HS LENNIE Administration Ursodiol 600 mg 03/28/25 09:00 03/29/25 09:02 Ursodiol 300 Mg Capsule PO 600 mg QAM LENNIE Administration Ursodiol 300 mg 03/27/25 21:00 03/28/25 20:44 Ursodiol 300 Mg Capsule PO 300 mg QHS LENNIE Administration Radiology Results: ITS Impressions Chest X-Ray 03/27/25 14:55 IMPRESSION: 1: NO ACUTE CARDIOPULMONARY DISEASE. Labs Labs: Laboratory Results - last 24 hr 03/28/25 03/28/25 03/28/25 11:36 16:01 20:41 WBC RBC Hgb Hct MCV MCH MCHC RDW Plt Count MPV Immature Gran % (Auto) Neut % (Auto) Lymph % (Auto) [place] % (Auto) Eos % (Auto) Baso % (Auto) Lymph # (Auto) [place] # (Auto) Eos # (Auto) Baso # (Auto) Abs Immat Gran (auto) Absolute Neuts (auto) Absolute Nucleated RBC Nucleated RBC % Sodium Potassium Chloride Carbon Dioxide Anion Gap BUN Creatinine Estim Creat Clear Calc Estimated GFR Glucose POC Capillary Glucose 148 H 235 H 203 H Calcium Magnesium Total Bilirubin AST ALT Alkaline Phosphatase Total Protein Albumin 03/29/25 03/29/25 03:58 07:31 WBC 5.0 RBC 3.72 L Hgb 10.8 L Hct 36.7 L MCV 98.7 MCH 29.0 MCHC 29.4 L RDW 17.3 H Plt Count 185 MPV 10.0 Immature Gran % (Auto) 0.4 Neut % (Auto) 68.3 Lymph % (Auto) 22.3 [place] % (Auto) 6.4 Eos % (Auto) 2.0 Baso % (Auto) 0.6 Lymph # (Auto) 1.12 [place] # (Auto) 0.3 Eos # (Auto) 0.1 Baso # (Auto) 0.0 Abs Immat Gran (auto) 0.02 Absolute Neuts (auto) 3.4 Absolute Nucleated RBC 0.000 Nucleated RBC % 0.0 Sodium 136 L Potassium 4.0 Chloride 102 Carbon Dioxide 27 Anion Gap 7 BUN 14 Creatinine 0.82 Estim Creat Clear Calc 55 Estimated GFR > 60 Glucose 152 H POC Capillary Glucose 153 H Calcium 8.4 Magnesium 2.0 Total Bilirubin 0.3 AST 46 H ALT 28 Alkaline Phosphatase 122 Total Protein 7.0 Albumin 3.8
[2025-03-29] MEDS: FERROUS SULFATE 325 MG TABLET DR BY MOUTH (11:16)
[2025-03-29 11:37] LABS: Glucose Point of Care 163 mg/dl (65-105)
--- NOTE | 2025-03-29 14:53 | P.DS_ITS ---
DS: Admitting Diagnosis Discharge Date 03/29/25 Admitting Diagnosis Atrial Fibrillation DS: Discharge Diagnosis Discharge Diagnosis (1) Atrial fibrillation with rapid ventricular response: Code(s): I48.91 - Unspecified atrial fibrillation Status: Acute DS: Summary Hospital Course Hospital Course: 64 y/o F with PMH of atrial fibrillation, peripheral neuropathy, liver disease, COPD, hypertension, hyperlipidemia, hypothyroidism, and diabetes presents here with atrial fibrillation. The patient presents here from [facility] for further evaluation of AFib. She underwent a routine colonoscopy. 6 polyps were removed. Postprocedure the patient was found to be in AFib RVR with a rate in the 130s and 140s. She has a known history of AFib. She is on metoprolol 100 mg daily and Eliquis. GI lab attempted to convert/rate control the patient's heart rate prior to arrival. She was given 2 L of fluid, 25 mg of diltiazem IV, 10 mg of metoprolol IV with minimal effect on the patient's heart rate. Initial VS at presentation: 98.1? F, HR 141, R 28, 153/89, and 97% on RA. ED workup showed: No leukocytosis, hemoglobin 11.3 (previously 8.4 on 02/18/2025), normal coags, creatinine 0.59 and GFR >60, initial troponin negative x2, BNP 901. CXR showed no acute abnormality. EKG showed atrial flutter RVR, rate 133, moderate ST depression (awaiting formal read). Cardiology was consulted and patient was comfortably transitioned to PO regimen from IVF Cardizem, today heart rate is controlled. Discussed with cardiology today and he recommended discharge on Cardizem 180mg daily ER, and Metoprolol Tartrate 100mg bid, continue home Eliquis. F/u with PCP in 3-5 days F/u with cardiology as instructed Time Spent with Patient Time attestation: Total time spent providing and/or coordinating discharge services: DS: Data Data Completed and Pending Labs on day of discharge: Labs from last 24 hours 03/29/25 03/29/25 03/29/25 11:19 07:31 03:58 WBC 5.0 RBC 3.72 L Hgb 10.8 L Hct 36.7 L MCV 98.7 MCH 29.0 MCHC 29.4 L RDW 17.3 H Plt Count 185 MPV 10.0 Immature Gran % (Auto) 0.4 Neut % (Auto) 68.3 Lymph % (Auto) 22.3 [place] % (Auto) 6.4 Eos % (Auto) 2.0 Baso % (Auto) 0.6 Lymph # (Auto) 1.12 [place] # (Auto) 0.3 Eos # (Auto) 0.1 Baso # (Auto) 0.0 Abs Immat Gran (auto) 0.02 Absolute Neuts (auto) 3.4 Absolute Nucleated RBC 0.000 Nucleated RBC % 0.0 Sodium 136 L Potassium 4.0 Chloride 102 Carbon Dioxide 27 Anion Gap 7 BUN 14 Creatinine 0.82 Estim Creat Clear Calc 55 Estimated GFR > 60 Glucose 152 H POC Capillary Glucose 163 H 153 H Calcium 8.4 Magnesium 2.0 Total Bilirubin 0.3 AST 46 H ALT 28 Alkaline Phosphatase 122 Total Protein 7.0 Albumin 3.8 03/28/25 03/28/25 20:41 16:01 WBC RBC Hgb Hct MCV MCH MCHC RDW Plt Count MPV Immature Gran % (Auto) Neut % (Auto) Lymph % (Auto) [place] % (Auto) Eos % (Auto) Baso % (Auto) Lymph # (Auto) [place] # (Auto) Eos # (Auto) Baso # (Auto) Abs Immat Gran (auto) Absolute Neuts (auto) Absolute Nucleated RBC Nucleated RBC % Sodium Potassium Chloride Carbon Dioxide Anion Gap BUN Creatinine Estim Creat Clear Calc Estimated GFR Glucose POC Capillary Glucose 203 H 235 H Calcium Magnesium Total Bilirubin AST ALT Alkaline Phosphatase Total Protein Albumin Discharge Plan Discharge Attending physician on discharge: Jazmine Durham Consulting providers: Char Mederos Discharging Clinician: Jazmine Durham Anticipated Discharge Date/Time: 03/29/25 14:47 Patient Disposition: Home Activity: as tolerated Diet: as tolerated, heart healthy and diabetic Patient Instructions: Antibiotic Form Patient Language: Romanian Stand Alone Forms: General Discharge Information Follow-up/Referrals: Char Mederos MD [Physician] - (F/u with cardiology as instructed ) Sonal Webster MD [Primary Care Provider] - (F/u with PCP in 3-5 days ) Discharge Medications: New diltiazem HCl [Cardizem CD] 180 mg capsule,extended release 24hr 180 mg PO DAILY 30 Days Qty: 30 1RF metoprolol tartrate 100 mg tablet 100 mg PO BID 30 Days Qty: 60 1RF Continued (DME) blood-glucose meter [OneTouch Verio Flex meter] Mis See Rx Instructions .Route Qty: 1 1RF Rx Instructions: As directed (DME) lancets [OneTouch Delica Plus Lancet] [facility] See Rx Instructions .ROUTE .MEDSUPPLY Qty: 100 0RF Rx Instructions: Check glcuose (DME) OneTouch Verio test strips Strip See Rx Instructions .Route Qty: 50 1RF Rx Instructions: Check once daily fexofenadine [Ling Allergy] 180 mg tablet 180 mg PO DAILY albuterol sulfate 90 mcg/actuation aerosol powdr breath activated 2 inh INHALATION Q6H PRN (Reason: shortness of breath or wheezing) Qty: 1 3RF ursodiol 300 mg capsule 300 mg PO DAILY Patient Comments: 2 tabs in morning, 1 in evening lisinopril-hydrochlorothiazide 20-12.5 mg tablet 1 tablet PO DAILY clotrimazole-betamethasone 1-0.05 % cream 1 applic topical Q12H PRN (Reason: rash) mecobalamin (vitamin B12) 1,000 mcg tablet,chewable 1,000 mcg PO DAILY Qty: 90 1RF levothyroxine 50 mcg tablet See Rx Instructions .ROUTE .COMPLEX Qty: 90 1RF Dose Instruction: TAKE 1 TABLET BY MOUTH DAILY Rx Instructions: TAKE 1 TABLET BY MOUTH DAILY simvastatin 20 mg tablet See Rx Instructions .ROUTE .COMPLEX Qty: 90 2RF Dose Instruction: TAKE 1 TABLET BY MOUTH DAILY Rx Instructions: TAKE 1 TABLET BY MOUTH DAILY Farxiga 10 mg tablet 10 mg PO QAM Qty: 90 1RF Eliquis 5 mg tablet See Rx Instructions .ROUTE .COMPLEX Qty: 180 1RF Dose Instruction: TAKE 1 TABLET TWICE A DAY Rx Instructions: TAKE 1 TABLET TWICE A DAY sertraline 100 mg tablet 100 mg PO DAILY Qty: 90 1RF Januvia 50 mg tablet 50 mg PO DAILY Qty: 90 1RF ferrous sulfate 325 mg (65 mg iron) tablet 325 mg PO DAILY Qty: 90 0RF metformin 1,000 mg tablet 1,000 mg PO BIDWMEAL Qty: 180 1RF trazodone 50 mg tablet See Rx Instructions .ROUTE .COMPLEX Qty: 180 1RF Dose Instruction: TAKE 1 TO 2 TABLETS BY MOUTH EVERY NIGHT AT BEDTIME Rx Instructions: TAKE 1 TO 2 TABLETS BY MOUTH EVERY NIGHT AT BEDTIME Discontinued metoprolol succinate 100 mg tablet extended release 24 hr 100 mg PO DAILY Qty: 90 3RF Date of admission: 03/28/25 14:36 Primary Care Provider: Sonal Webster Admitting Provider: Jazmine Durham Attending physician on admission: Jazmine Durham Condition: Stable
== END 2025-03-29 15:08 | disposition home or self-care (01) | DRG 310 ==
LOC: ANHED 17:34 → ANHIMU 17:43
PROVIDERS: Emergency Medicine; Student in an Organized Health Care Education/Training Program; Admitting Provider Internal Medicine; Emergency Provider Physician Assistant; PCP Family Medicine; Visit Provider Internal Medicine
DX: I48.20 Chronic atrial fibrillation, unspecified (principal); I48.92 Unspecified atrial flutter; I10 Essential (primary) hypertension; J44.9 Chronic obstructive pulmonary disease, unspecified; D50.9 Iron deficiency anemia, unspecified; E53.8 Deficiency of other specified B group vitamins; E55.9 Vitamin D deficiency, unspecified; E11.42 Type 2 diabetes mellitus with diabetic polyneuropathy; E03.9 Hypothyroidism, unspecified; E78.2 Mixed hyperlipidemia; R80.8 Other proteinuria; M51.379 Other intervertebral disc degeneration, lumbosacral region without mention of lumbar back pain or lower extremity pain; M47.816 Spondylosis without myelopathy or radiculopathy, lumbar region; F32.A Depression, unspecified; F17.210 Nicotine dependence, cigarettes, uncomplicated; Z96.653 Presence of artificial knee joint, bilateral; Z79.01 Long term (current) use of anticoagulants
CPT/HCPCS: 36415; 71046; 80048; 80053; 82948; 83690; 83735; 83880; 84484; 85025; 85610; 85730; 93005; 93306; 96374; 96375; 99285; A9270; G0378; J1160; J1815

== ENCOUNTER 2025-04-08 10:47 | Outpatient (CLI) | payer MEDICARE, BC, SELFPAY ==
--- OUTSIDE RECORDS SUMMARY | 2025-04-08 11:07 | XMS_ITS | Clinical Summary ---
Author Organization [facility] Address [address] [place] [id number] Phone Care Team Providers Care Business Computers Teacher Name Role Phone Unavailable Primary Care Provider [...]
--- OUTSIDE RECORDS SUMMARY | 2025-04-08 11:07 | XMS_ITS | Referral Summary ---
Author Organization [facility] [address] [facility] [address] Address [address] [place] [address] Care Team Providers Care Ocean Fishing Guide Name Role Phone Nicolasa Jiang MD Unavailable Prince Webster MD Primary Care Provider [phone] Encounters Date Type Department Care Team Description 03/27/2025 Telephone [facility] Cardiology [address] [place] [address] Sivan Storey MD from Last 3 Months Allergies No known active allergies Medications albuterol HFA (PROVENTIL HFA,VENTOLIN HFA,PROAIR HFA) 90 mcg/actuation inhaler Inhale 2 puffs every 6 hours Active fexofenadine (TYSON) 180 mg tablet Take 1 tablet (180 mg total) by mouth 7 Active levothyroxine (SYNTHROID, LEVOTHROID) 50 mcg tablet 7 Active metFORMIN (GLUCOPHAGE) 1,000 mg tablet Take 1 tablet (1,000 mg total) by mouth 2 (two) times a day with meals 7 Active ursodioL (ACTIGALL) 300 mg capsule 1 capsule (300 mg total) 3 8 Active traZODone (DESYREL) 50 mg tablet Take by mouth nightly 1 Active sertraline (ZOLOFT) 100 mg tablet Take 1 tablet (100 mg total) by mouth daily 1 Active apixaban (ELIQUIS) 5 mg tablet Take 1 tablet (5 mg total) by mouth 2 (two) times a day 60 tablet 11 1 Active magnesium oxide 400 mg magnesium capsuleIndicatio ns:Paroxysmal atrial fibrillation (HCC) Take 0.5 tablets by mouth daily 30 capsule 11 2 Active Additional Information Patient not taking.Reported on 01/06/2025 metoprolol XL (TOPROL-XL) 100 mg 24 hr tablet Take 1 tablet (100 mg total) by mouth daily Active simvastatin (ZOCOR) 20 mg tablet Take 1 tablet (20 mg total) by mouth daily 3 Active Farxiga 10 mg tablet Take 1 tablet (10 mg total) by mouth every morning 3 Active Januvia 50 mg tablet Take 1 tablet (50 mg total) by mouth daily 3 Active acetaminophen (TYLENOL) 500 mg tablet Take 1 tablet (500 mg total) by mouth nightly as needed for pain Active folic acid (FOLVITE) 1 mg tablet Take 1 tablet (1,000 mcg total) by mouth daily 4 Active cyanocobalamin (Vitamin B-12) 1,000 mcg tabletIndication s:Prevention of Vitamin B12 Deficiency Take 1 tablet (1,000 mcg total) by mouth daily Active lisinopril-hydro CHLOROthiazide (ZESTORETIC) 20-12.5 mg per tabletIndication s:hypertension TAKE 1 TABLET BY MOUTH DAILY 90 tablet 3 5 Active Active Problems Problem Noted Date Diagnosed [...] on file 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 Gender Identity Not on file Sexual Orientation Not on file Last Filed Vital Signs Vital Sign Reading Time Taken Comments Blood Pressure 92/50 01/06/2025 10:43 AM THERMOFORMING MACHINE OPERATOR Pulse 56 01/06/2025 10:43 AM THERMOFORMING MACHINE OPERATOR Temperature 36.8 C (98.2 F) 05/22/2024 11:03 AM CDT Respiratory Rate 16 05/22/2024 11:0 5 AM CDT Oxygen Saturation 99% 01/06/2025 10: 43 AM THERMOFORMING MACHINE OPERATOR Inhaled Oxygen Concentration - - Weight 69.8 kg (153 lb 14.4 oz) 025 10:43 AM THERMOFORMING MACHINE OPERATOR Height 157.5 cm (5' 2 ) 01/06/2025 10:4 3 AM THERMOFORMING MACHINE OPERATOR Body Mass Index 28.15 01/06/2025 10:43 AM THERMOFORMING MACHINE OPERATOR Plan of Treatment Not on [place] [address] [facility] MEDICARE [facility] Address: [address] [address] [place] [address] [facility] MEDICARE [place] [employer] MD MEDICARE [facility] Address: [address] [address] [place] [address] [facility] Care Teams Ocean Fishing Guide Relationship Specialty Start Date End Date Prince Webster MD [address] [place] [id number] PCP - General Family Medicine 01/09/23 Nicolasa Jiang MD [address] [place] [id number] Family Medicine 07/19/21
--- OUTSIDE RECORDS SUMMARY | 2025-04-08 11:07 | XMS_ITS | Clinical Summary ---
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
--- OUTSIDE RECORDS SUMMARY | 2025-04-08 11:07 | XMS_ITS | Clinical Summary ---
Author Organization [facility] Address [address] [place] [address] Care Team Providers Care Operations Administrator Name Role Phone Nicolasa Jiang MD Primary Care Provider [phone] [facility],non-owned Affiliates and Associated Physician Practices is amultiple site organization consisting of ambulatory clinics and hospital sitesin [place], [place], [place] and [place]. This disclosure is being madepursuant to the Care Everywhere program and may not contain all information available regarding this patient. Last updated 18.[facility] Allergies No known active allergies Medications * [...] by mouth once daily Active HYDROcodone-avila taminophen ([place]) 5-325 MG tablet Take 1 (one) tablet [...] 07/24/2023 Hip fx, left, closed, initial encounter 09/21/20 22 Essential hypertension, malignant 09/13/2021 Mixed hyperlipidemia [...] Department Care Team Description 02/06/2025 Orders Only [facility] [address] [place] [address] Ben Cuevas RN Primary biliary cholangitis from Last 3 Months Immunizations Immunization Administration Dates Next Due Wandrian primary monoval ent 12+ yr 0.3mL Purple [...] on file Legal Sex Female 5:20 PM LIVING NURSE Gender Identity Not on file Sexual Orientation [...] On track( 10:37 AM CDT) No Maris Caldera RN Note: Expected end date: Ongoing Interventions: Take all medications as prescribed Let your doctor know right away about any changes in your medications Make sure to request a refill of your medication at least one week prior to your last dose Safety General On track( 10:38 AM CDT) No Meredith Mesa, SAMIRA Note: Expected end date: ongoing Interventions: Your nurse will assess your risk for falls/injury each visit Medical Devices Implanted Type Area Transportation Mechanic Device Identifier Shelf Expiration Date Model / Serial / Lot Nail Im 10mm 18cm Trgn Intrtn Intrtroch - Sn/A Implanted:Qty: 1 on 08/20/2022 by Jeremiah Wilkerson MD at [facility] Left: Hip [employer] 04/18/2032 [id number] / N/A / [id number] Kit Screw 95mm 11.5mm 7mm Intrtn Troch - Sn/A Implanted:Qty: 1 on 08/20/2022 by Jeremiah Wilkerson MD at [facility] Left: Hip [employer] 04/15/2032 [id number] / N/A / [id number] Screw 5mm 32.5mm Lopro Intnl Hex Fem - Sn/A Implanted:Qty: 1 on 08/20/2022 by Jeremiah Wilkerson MD at [facility] Left: Hip [employer] 06/19/2031 [id number] / N/A / [id number] Procedures Procedure Name Priority Date/Time Associated Diagnosis Comments DEXA BONE DENSITY AXIAL SKELETON Routine 10/24/2023 9:00 AM LIVING NURSE Research study patient COMPREHENSIVE METABOLIC PANEL Routine 07/24/2023 9:40 AM CDT Primary biliary cholangitis NAFLD (nonalcoholic fatty liver disease) Age-related osteoporosis without current pathological fracture Hepatic fibrosis, stage 3 HEMOGLOBIN A1C Routine 12/11/2019 8:07 AM LIVING NURSE Controlled type 2 diabetes mellitus without complication, with long-term current use of insulin HEPATITIS C ANTIBODY Routine 04/18/2017 12:29 PM CDT from Last 3 Months or Most Recently Relevant to Health Maintenance Results * BONE DENSITY AXIAL SKELETON(1OR MORE SITES)[id number] (10/24/2023 9:00 AM LIVING NURSE) Anatomical Region Laterality Modality Other 10/24/2023 10:0 6 AM LIVING NURSE Narrative 10/24/2023 10:32 AM LIVING NURSE PROCEDURE: DEXA BONE DENSITY AXIAL SKELETON DATE/TIME [...] below > Dictated by Elaine Tijerina MD (Under Water Assistant) 10/24/2023 10:06 AM Herrera Sams DO have [...] below > Dictated by Elaine Tijerina MD (Under Water Assistant) 10/24/2023 10:06AM Herrera Sams DO have personally reviewed and interpreted this examination/study. > Interpreting Provider: Herrera Whitfield DO on 10/24/2023 10:32 AM Mo Crespo MD DEXA ORDERABLES Final Result * (ABNORMAL) COMPREHENSIVE METABOLIC PANEL (07/24/2023 9:40 AM [facility]) BUN 12 7 - 26 mg/dL 07/24/2023 10:28 AM [facility] Creatinine 0.55(L) 0.56 - 0.96 mg/dL 07/24/2023 10:28 AM [facility] Sodium 134(L) 136 - 145 mmol/L 07/24/2023 10:28 AM [facility] Potassium 3.9 3.5 - 4.5 mmol/L 07/24/2023 10:28 AM [facility] Chloride 102 98 - 107 mmol/L 07/24/2023 10:28 AM [facility] CO2 25 22 - 29 mmol/L 07/24/2023 10:28 AM [facility] Glucose 108 70 - 115 mg/dL 07/24/2023 10:28 AM [facility] Calcium 8.7 8.4 - 10.2 mg/dL 07/24/2023 10:28 AM [facility] Protein Total 7.2 6.0 - 8.3 g/dL 07/24/2023 10:28 AM [facility] Albumin 3.5 3.4 - 5.0 g/dL 07/24/2023 10:28 AM [facility] Bilirubin Total 0.4 0.2 - 1.2 mg/dL 07/24/2023 10:28 AM [facility] Alkaline Phosphatase 143 40 - 150 U/L 07/24/2023 10:28 AM [facility] ALT 19 5 - 55 U/L 07/24/2023 10:28 AM [facility] AST 28 5 - 34 U/L 07/24/2023 10:28 AM [facility] Anion Gap 11 8 - 18 07/24/2023 10:28 AM [facility] BUN/Creatinine Ratio 22 7 - 23 07/24/2023 10:28 AM CDT [facility] Osmolality Calculated 278 270 - 300 mOsm/kg 07/24/2023 10:28 AM T [facility] Albumin/Globulin Ratio 0.9(L) 1.1 - 2.3 07/24/2023 10:28 AM CDT [facility] eGFR by CKD-EPI >90 >=90 mL/min/1.7 3 m2 07/24/2023 10:28 AM T [facility] Blood BLOOD SPECIMEN / Unknown Lab Venipuncture / Unknown 07/24/2023 9:40 AM CDT 07/24/2023 9:55 AM CDT us Jayde Skaggs MD LAB - CHEMISTRY ORDERABLES Fi nal Result Performing Organization Address City/[facility]/ZIP Co de Phone Number [address] [address], [facility] [phone] * (ABNORMAL) HEMOGLOBIN A1C (12/11/2019 8:07 AM LIVING NURSE) Pathologist [facility] Hemoglobin A1c 9.9(H) 4.8 - 5.6 % [facility] INSURANCE BILL Comment: . Prediabetes: 5.7 - 6.4 Diabetes: >6.4 Glycemic control for adults with diabetes: <7.0 FASTING Blood BLOOD SPECIMEN / Unknown 12/11/2019 8:07 AM LIVING NURSE 12/11/2019 Narrative [facility] INSURANCE BILL - 12/12/2019 7:08 AM LIVING NURSE A courtesy copy of this report has been sent to [phone] Resulting Agency Comment Lab [facility] performed at: [facility] [address] [facility] [phone] us Trip Patel MD LAB - CHEMISTRY ORDERAB LES Final Result Performing Organization Address City/[facility]/ZIP Co de Phone Number [facility] INSURANCE BILL [address] [place] [address] * HEPATITIS C ANTIBODY (04/18/2017 12:29 PM CDT) Hepatitis C Antibody Non-react cassandra Non-reac tive [facility] Comment: Hepatitis C Antibody screen indicates no [...] LAB - CHEMISTRY ORDERAB LES Final Result [facility] [address] [phone] from Last 3 Months or Most Recently Relevant to Health Maintenance Insurance ([place]) [address] [place] [address] MEDICARE [facility] MEDICARE [facility] [employer] [facility] SELF PAY NO INSURANCE Member Subscriber Plan / Payer (Ef fective for All Dates) Name:Bel Gaston Member ID:Not on file Relation to Subscriber:Not on file Name:BEL GASTON Subscriber ID:Not on file (Home) Address: [facility] [place] [address] Payer ID:Not on file Group ID:Not on file Type:Self Pay Address: [place], [place] MEDICARE [facility] [facility] [employer] [facility] Advance Directives * Full Code (Latest Code Status on File) Date Activated Date Inactivated Comments 08/20/2022 2:02 PM 08/25/2022 3:30 PM * Full Code Date Activated Date Inactivated Comments 08/17/2022 11:56 PM 08/20/2022 2:02 PM Care Teams Operations Administrator Relationship Specialty Start Date End Date Nicolasa Jiang MD [address] [place] [id number] PCP - General 07/10/18
--- OUTSIDE RECORDS SUMMARY | 2025-04-08 11:07 | XMS_ITS | Clinical Summary ---
Author Organization [facility] [address] [facility] [address] [facility] [address] [place] [address] Care Team Providers Care Russian Language Professor Name Role Phone Nicolasa Jiang MD Unavailable Prince Webster MD Primary Care Provider [phone] Allergies No known active allergies Medications albuterol [...] Type Department Care Team Description 03/27/2025 Telephone [facility] Cardiology [address] [place] [address] Sivan Storey MD from Last 3 Months Surgical History Surgery [...] on file Legal Sex Female 1:40 AM JUNIOR ADMINISTRATIVE ASSISTANT Gender Identity Not on file Sexual Orientation Not on file Obstetrics History Last Filed Vital Signs Vital Sign Reading Time Taken Comments Blood Pressure 92/50 01/06/2025 10:43 AM JUNIOR ADMINISTRATIVE ASSISTANT Pulse 56 01/06/2025 10:43 AM JUNIOR ADMINISTRATIVE ASSISTANT Temperature 36.8 C (98.2 F) 05/22/2024 11:03 AM CDT Respiratory Rate 16 05/22/2024 11:0 5 AM CDT Oxygen Saturation 99% 01/06/2025 10: 43 AM JUNIOR ADMINISTRATIVE ASSISTANT Inhaled Oxygen Concentration - - Weight 69.8 kg (153 lb 14.4 oz) 025 10:43 AM JUNIOR ADMINISTRATIVE ASSISTANT Height 157.5 cm (5' 2 ) 01/06/2025 10:4 3 AM JUNIOR ADMINISTRATIVE ASSISTANT Body Mass Index 28.15 01/06/2025 10:43 AM JUNIOR ADMINISTRATIVE ASSISTANT Plan of Treatment Health Maintenance Due Date [...] 10/24/2025 10/24/2023, 10/24/2023, 02/21/2023, Additional history exists Insurance MEDICARE [facility] MEDICARE [facility] MEDICARE [facility] MEDICARE [facility] [employer] Care Teams Russian Language Professor Relationship Specialty Start Date End Date Prince Webster MD [address] [place] [address] PCP - General Family Medicine 01/09/23 Nicolasa Jiang MD [address] [place] [address] Family Medicine 07/19/21
== END 2025-04-08 10:48 | disposition home or self-care (01) ==
LOC: ANHGOSHLAB 10:48
PROVIDERS: PCP Family Medicine; Visit Provider Family Medicine
DX: I48.91 Unspecified atrial fibrillation (principal)
CPT/HCPCS: 36415; 84443